=== PATIENT | female | born 1935 | race Caucasian/White ===

== ENCOUNTER → 2016-04-05 | Outpatient (CLI) | payer OTHER, MEDICARE ==
[~2016-04-05] MED LIST: ASPEC81 PO; ATOR-24 PO; CHOL20005 PO; CLOP1TAB15 PO; LISI-729 PO; LPR25 PO; MONT1TAB3 PO; NTRGSL/4 UT; PANT1TAB48 PO; PLMIN90 IN; SPIR25TA89 PO
[2016-04-05 08:35] LABS: BLOOD UREA NITROGEN 16 mg/dl (7-18); BUN/CREATININE RATIO 17.1 (10-20); CALCIUM 8.6 mg/dl (8.5-10.1); CARBON DIOXIDE 26 mmol/L (21-32); CHLORIDE 105 mmol/L (98-107); CHOLESTEROL 135 mg/dl (0-200); CREATININE 0.93 mg/dl (0.60-1.20); GLUCOSE 112 mg/dl (70-99); POTASSIUM 4.5 mmol/L (3.5-5.1); SODIUM 141 mmol/L (136-145)
[2016-04-05 08:38] LABS: CHOLESTEROL/HDL RATIO 2.1; HDL CHOLESTEROL 64 mg/dl; LDL CHOLESTEROL CALCULATED 52 mg/dl; TRIGLYCERIDES 95 mg/dl (0-150); VERY LOW DENSITY LIPOPROT CALC 19 mg/dl
[2016-04-05 10:28] LABS: ESTIMATED AVERAGE GLUCOSE 134 mg/dl; HA1C FLAG Normal (Normal)
--- NOTE | 2016-04-12 11:03 | CODING QUERY MEDICAL NECESSITY ---
SUPPORTING DIAGNOSIS NEEDED A supporting diagnosis is required for the test/procedure performed on this patient in order for us to be reimbursed by the patient's insurance. Please provide a supporting diagnosis for the following test/procedure listed below next to the test name along with your signature. *If there is no additional diagnosis for this patient that would support the following test/procedure please document that below next to the test/procedure. Test(s)/Procedure(s) that require a supporting diagnosis: * GLYCATED HEMOGLOBIN DIAGNOSIS: * DOS: 04/05/16 Provider Signature: Date: Thank you Keira [facility] Information Management Once completed, please kindly fax back to [phone] For questions please call [phone]
== END | disposition home or self-care (01) ==
LOC: C.LABFOXMH 08:16
PROVIDERS: ATTEND Internal Medicine
DX: E88.81 Metabolic syndrome and other insulin resistance (principal)

== ENCOUNTER → 2016-04-12 | Outpatient (CLI) | payer OTHER, MEDICARE ==
--- NOTE | 2016-04-12 13:09 | DIAGNOSTIC IMAGING REPORT ---
TWO VIEW CHEST CLINICAL HISTORY: Cough. FINDINGS: PA and lateral chest radiographs are compared to study dated 07/01/2015. The PA view is degraded by patient rotation. The heart is enlarged and there is atherosclerotic calcification with uncoiling of the thoracic aorta. The pulmonary vasculature is noncongested. Linear atelectasis is present in the right lower lung. There is patchy airspace consolidation seen in the left midlung. No pleural effusion or pneumothorax is identified. The skeletal structures are osteopenic. Degenerative change and hyperkyphosis are present in the thoracic spine. Surgical anchors are noted in the right humeral head. IMPRESSION: 1. Marked cardiomegaly without radiographic evidence of congestive failure. 2. There is patchy airspace consolidation the left midlung. This likely represents pneumonia. Radiographic follow-up to resolution is recommended. Electronically signed by: Sal Patterson M.D. 04/12/2016 1:07 PM Dictated Date/Time: 04/12/2016 1:05 PM
== END | disposition home or self-care (01) ==
LOC: C.RADBC 12:39
PROVIDERS: ATTEND Internal Medicine
DX: R05 Cough (principal); I51.7 Cardiomegaly

== ENCOUNTER → 2016-05-03 | Outpatient (CLI) | payer OTHER, MEDICARE ==
--- NOTE | 2016-05-03 12:14 | DIAGNOSTIC IMAGING REPORT ---
CHEST 2 VIEWS ROUTINE CLINICAL HISTORY: PNEUMONIA dyspnea COMPARISON STUDY: 04/12/2016 FINDINGS: Moderate stable cardiomegaly. Unchanging pulmonary atelectasis right base. Minimal infiltrative change left midlung. Upper lungs are considered clear. Postoperative changes right shoulder. IMPRESSION: Moderate stable cardiomegaly. Minimal infiltrate left midlung. Mild improvement from the prior study Electronically signed by: Sergo Castaneda M.D. 05/03/2016 12:12 PM Dictated Date/Time: 05/03/2016 12:10 PM
== END | disposition home or self-care (01) ==
LOC: C.RADBC 11:15
PROVIDERS: ATTEND Internal Medicine
DX: J18.9 Pneumonia, unspecified organism (principal); I51.7 Cardiomegaly

== ENCOUNTER → 2016-05-09 | Outpatient (CLI) | payer OTHER, MEDICARE ==
--- NOTE | 2016-05-09 11:49 | DIAGNOSTIC IMAGING REPORT ---
HISTORY: Dysphagia DYSPHASIA TECHNIQUE: Video fluoroscopic evaluation of swallowing was performed in the AP and lateral projections by the speech pathology staff. The patient is fed nectar-thick and thin liquid barium, a barium coated wafer, and barium pudding. FLUOROSCOPY TIME: 1.8 minutes. COMPARISON STUDY: None. FINDINGS: There is normal hyoid excursion and epiglottic deflection. No evidence for aspiration. Trace amount of penetration with thin liquids. Moderate esophageal dysmotility. IMPRESSION: 1. No aspiration identified. Trace penetration with thin liquids. Moderate esophageal dysmotility 2. Please see the speech pathologist report for detailed findings and recommendations. Electronically signed by: Sergo Castaneda M.D. 05/09/2016 11:48 AM Dictated Date/Time: 05/09/2016 11:47 AM
--- NOTE | 2016-05-10 13:52 | SWALLOWING EVALUATION ---
HISTORY: This 80 year-old woman was referred for a VFSS at [facility] in order to rule out aspiration. The patient reports that she coughs all day, and that it is not necessarily associated with food. But, she does have coughing after her meal is finished, and when she lies flat. The patient has a PMH significant for Diabetes type II, CO, MS, small hiatal hernia, mild GERD, and left lung pneumonia in April of this year. Her current diet is regular. PROCEDURE: The patient was seen in the Radiology Department of [facility] for the VFSS. Cursory examination of the oral cavity revealed natural dentition in fair condition. Movement of the articulators was wnl. The patient was seated upright on a stool and was viewed in both the Anterior-Posterior (A-P) and Lateral planes. Volitional phonation exercises completed in the A-P plane revealed bilateral vocal fold movement and vocal intensity to be wnl. In the lateral plane, the patient was given the following boluses: 1 tsp. thin liquid barium x 2, single swallow thin liquid barium self-presented from a cup, serial swallows of thin liquid barium self-presented via straw, 1 tsp. nectar-thick liquid barium, single swallow nectar-thick liquid barium self-presented from a cup, 1 tsp. barium pudding, and 1 club cracker with barium paste. The patient was then repositioned into the A-P plane and given the following boluses: 1 tsp. nectar-thick liquid barium and 1 tsp. barium pudding. RESULTS: Oral Stage: Lip closure was adequate. The patient was able to maintain a cohesive liquid bolus upon command during the liquid bolus hold task. Mastication and lingual motion for bolus transport we noted to be slow. There was retention lining the tongue after the swallow. The initiation of the pharyngeal swallow was delayed, and triggered when the bolus head reached the pyriforms. Pharyngeal Stage: Soft palate elevation was complete. Laryngeal elevation revealed partial superior movement of the thyroid cartilage and partial approximation of the arytenoids to the epiglottic base. Anterior hyoid excursion and epiglottic deflection were complete. Laryngeal vestibular closure was incomplete, with a narrow column of contrast being located in the vestibule at the height of the swallow. The pharyngeal stripping wave was present and complete. The opening to the pharyngoesophageal segment was also complete with distention and duration of the opening, with no obstruction of bolus flow. Tongue base retraction was reduced, with a narrow column of contrast being located between the tongue base and pharyngeal wall during the swallow. There was trace retention located along the tongue base and in the valleculae after the swallow. The patient presented with laryngeal penetration with thin liquids, but this did not result in aspiration. There was no evidence of aspiration during this study. Laryngeal penetration was attributed to delayed swallow reflex and reduced hyolaryngeal elevation. No other significant difficulty noted. Esophageal stage: There was evidence mid-distal esophageal retention. A liquid wash did assist, but was not effective to completely clearing the retention. SUMMARY/RECOMMENDATIONS: This patient presents mild oral-pharyngeal dysphagia. She also presents with esophageal dysfunction. The following is recommended: 1. Regular "slippery" diet, thin liquids. 2. Aspiration and GERD precautions, straws OK. Fully upright for all p.o. intake and for 30-60 minutes after meals. HOB elevated to at least 30 degrees at all times, even while asleep. 3. Safe swallow strategies: Small frequent meals. Alternate solids and liquids, rest breaks as needed. 4. PCP follow up, and consider consultation with a GI specialist as appropriate. Would benefit from further testing (i.e. Barium Swallow as needed) and/or management of medications to assist with esophageal dysphagia. A summary of the results and recommendations was discussed with the patient immediately following the study with verbal understanding. The patient was also provided with both verbal and written education regarding "slippery" diet to assist with improved comfort while eating, with verbal understanding. Thank you for referral of this patient. Please contact me at if any additional information is needed.
== END | disposition home or self-care (01) ==
LOC: C.RAD 10:47
PROVIDERS: ATTEND Internal Medicine
DX: R13.19 Other dysphagia (principal); K22.4 Dyskinesia of esophagus; G35 Multiple sclerosis; E11.9 Type 2 diabetes mellitus without complications; I25.2 Old myocardial infarction; K21.9 Gastro-esophageal reflux disease without esophagitis

== ENCOUNTER → 2016-05-12 | Outpatient (CLI) | payer OTHER, MEDICARE ==
--- NOTE | 2016-05-12 09:58 | DIAGNOSTIC IMAGING REPORT ---
CT SCAN OF THE CHEST WITHOUT IV CONTRAST CLINICAL HISTORY: Cough. COMPARISON STUDY: Chest x-ray dated 05/03/2016. TECHNIQUE: CT scan of the thorax was performed from the thoracic inlet to the upper abdomen. Images are reviewed in the axial, sagittal, and coronal planes. IV contrast was not administered for this examination. CT DOSE: 273.79 mGy.cm FINDINGS: Thyroid: Imaged portions of the thyroid gland are normal in size and attenuation. Bilateral low-attenuation nodules measure up to 2.0 cm. Thoracic aorta: There is atherosclerotic calcification of the thoracic aorta, which is normal in caliber and demonstrates standard 3-vessel arch anatomy. Heart: The heart is mildly enlarged and there is trace pericardial effusion. The coronary arteries are densely calcified. A stent is suggested in the left coronary artery. Lungs and pleural spaces: Evaluation of the lung parenchyma is degraded by respiratory motion artifact. There is scarring/fibrosis identified in the lingula. Mild scarring is present in the right middle lobe. There are extensive tree-in-bud opacities seen throughout the left lower lung. Milder tree-in-bud opacities are present in the right upper and left upper lobes. No pleural effusion is identified. The trachea and central airways are clear. Scattered calcified granulomas are observed. Mediastinum: There are scattered subcentimeter mediastinal lymph nodes. These are not pathologically enlarged by size criteria. Flavia: Not well assessed without IV contrast. Axillae: There is no axillary lymphadenopathy. Upper abdomen: A tiny hiatal hernia is noted. The visualized kidneys demonstrate cortical atrophy. A 1.0 cm exophytic cyst arises from the left kidney. Skeletal structures: The skeletal structures are heterogeneously osteopenic. Degenerative change and hyperkyphosis are noted in the thoracic spine. No lytic or blastic bony lesions are seen. There is a moderate compression deformity of T11. A mild compression deformity is seen involving T6. Surgical anchors are present in the right humeral head. IMPRESSION: 1. There are extensive changes of tree-in-bud nodularity throughout the left lower lobe. Milder similar-appearing changes are present in the upper lobes. Additionally, there is significant atelectasis/scarring in the right middle lobe and lingula. The constellation of findings suggests a chronic infectious/inflammatory process such as FIDE. Follow-up with pulmonology is recommended. 2. Cardiomegaly. 3. Additional changes as above. Electronically signed by: Sal Patterson M.D. 05/12/2016 9:56 AM Dictated Date/Time: 05/12/2016 9:50 AM
--- NOTE | 2016-05-13 07:21 | PULMONARY FUNCTION TEST ---
INTERPRETATION: The spirometry reveals mild obstruction with no change in the airflow with the use of albuterol. Lung volumes suggest a mild restrictive disorder and the diffusion capacity when corrected for alveolar volume is increased.
== END | disposition home or self-care (01) ==
LOC: C.CTS 09:28
PROVIDERS: ATTEND Internal Medicine
DX: R05 Cough (principal); I51.7 Cardiomegaly

== ENCOUNTER → 2016-05-13 | Outpatient (CLI) | payer OTHER, MEDICARE ==
--- NOTE | 2016-06-03 08:35 | CODING QUERY NO DIAGNOSIS ---
TREATMENT RENDERED WITHOUT A DIAGNOSIS To promote full compliance with coding requirements relating to patient care, physician participation is requested in all cases of program clinician uncertainty. Please assist us with providing a diagnosis/symptom for the test(s) below: A diagnosis/symptom was not documented on your Order. A valid diagnosis/symptom is required to bill all insurances. Please remember that we are unable to code a diagnosis of rule out, probable, possible, questionable, or suspected. Tests that require a diagnosis: * AFB CULTURE AND SMEAR DIAGNOSIS: Provider Signature: Date: Thank you Maya Melrose [facility] Information Management Once completed, please kindly fax back to [phone] For questions please call [phone]
== END | disposition home or self-care (01) ==
LOC: C.LABFOXMH 11:02
PROVIDERS: ATTEND Internal Medicine
DX: R05 Cough (principal)

== ENCOUNTER → 2016-05-18 | Outpatient (CLI) | payer OTHER, MEDICARE | END | disposition home or self-care (01) | LOC: C.LABFOXMH 10:23 | PROVIDERS: ATTEND Internal Medicine | DX: T17.920A Food in respiratory tract, part unspecified causing asphyxiation, initial encounter (principal); X58.XXXA Exposure to other specified factors, initial encounter ==

== ENCOUNTER → 2016-05-30 | Outpatient (CLI) | payer OTHER, MEDICARE | END | disposition home or self-care (01) | LOC: C.LABSPEC 15:11 | PROVIDERS: ATTEND Nurse Practitioner | DX: R05 Cough (principal) ==

== ENCOUNTER → 2016-07-20 | Outpatient (CLI) | payer OTHER, MEDICARE ==
[2016-07-20 08:35] LABS: HEMATOCRIT 39.8 % (37-47); MEAN CELL VOLUME 90.2 fL (80-100); MEAN CORPUSCULAR HEMOGLOBIN 29.7 pg (25-34); MEAN CORPUSCULAR HGB CONC 32.9 g/dl (32-36); MEAN PLATELET VOLUME 9.8 fL (7.4-10.4); PLATELET COUNT 208 K/uL (130-400); RED BLOOD COUNT 4.41 M/uL (4.2-5.4); WHITE BLOOD COUNT 7.02 K/uL (4.8-10.8)
[2016-07-20 08:45] LABS: ALT/SGPT 21 U/L (12-78); BLOOD UREA NITROGEN 23 mg/dl (7-18); BUN/CREATININE RATIO 23.2 (10-20); CARBON DIOXIDE 27 mmol/L (21-32); CHLORIDE 105 mmol/L (98-107); GLUCOSE 108 mg/dl (70-99); POTASSIUM 4.5 mmol/L (3.5-5.1); SODIUM 140 mmol/L (136-145)
[2016-07-20 08:55] LABS: ALB/GLOB RATIO 1.1 (0.9-2); ALKALINE PHOSPHATASE 103 U/L (45-117); AST/SGOT 14 U/L (15-37)
--- NOTE | 2016-07-27 07:24 | CODING QUERY MEDICAL NECESSITY ---
SUPPORTING DIAGNOSIS NEEDED Dr. Denis, A supporting diagnosis is required for the test/procedure performed on this patient in order for us to be reimbursed by the patient's insurance. Please provide a supporting diagnosis for the following test/procedure listed below next to the test name along with your signature. *If there is no additional diagnosis for this patient that would support the following test/procedure please document that below next to the test/procedure. Test(s)/Procedure(s) that require a supporting diagnosis: * ([id number]) B12 VITAMIN LEVEL DIAGNOSIS: DATE OF SERVICE: 07/20/16 Provider Signature: Date: Thank you Evangelist Perla [facility] Information Management Once completed, please kindly fax back to [phone] For questions please call [phone]
== END ==
LOC: C.LABFOXMH 08:05
PROVIDERS: ATTEND Internal Medicine
DX: R53.83 Other fatigue (principal)

== ENCOUNTER → 2016-08-29 | Outpatient (CLI) | payer OTHER, MEDICARE ==
--- NOTE | 2016-08-29 12:41 | DIAGNOSTIC IMAGING REPORT ---
CT SCAN OF THE CHEST WITHOUT IV CONTRAST CLINICAL HISTORY: Follow-up abnormal chest CT. COMPARISON STUDY: Chest CT dated 05/12/2016. TECHNIQUE: CT scan of the thorax was performed from the thoracic inlet to the upper abdomen. Images are reviewed in the axial, sagittal, and coronal planes. IV contrast was not administered for this examination as per the referring clinician. CT DOSE: 296.93 mGycm FINDINGS: Thyroid: Imaged portions of the thyroid gland are normal in size and attenuation. Bilateral low-attenuation nodules measure up to 2.0 cm. Thoracic aorta: There is atherosclerotic calcification of the thoracic aorta, which is normal in caliber and demonstrates standard 3-vessel arch anatomy. Heart: The heart is mildly enlarged and there is a small pericardial effusion. The coronary arteries are densely calcified. A stent is suggested in the left coronary artery. The pulmonary trunk is normal in caliber. Lungs and pleural spaces: Evaluation of the lung parenchyma is degraded by respiratory motion artifact. There is scarring/fibrosis identified in the right middle lobe and lingula. Again seen are numerous foci of tree-in-bud opacification throughout the left lower lung. This has modestly cleared from 05/12/2016. Milder foci of tree-in-bud opacification are present in the right remaining lobes. No pleural effusion is identified. The trachea and central airways are clear. Scattered calcified granulomas are observed. Mediastinum: There are scattered subcentimeter mediastinal lymph nodes. These are not pathologically enlarged by size criteria. Flavia: Not well assessed without IV contrast. Axillae: There is no axillary lymphadenopathy. Upper abdomen: A tiny hiatal hernia is noted. The visualized kidneys demonstrate cortical atrophy. A subcentimeter exophytic cyst arises from the right upper pole. Skeletal structures: The skeletal structures are heterogeneously osteopenic. Degenerative change and hyperkyphosis are noted in the thoracic spine. No lytic or blastic bony lesions are seen. A hemangioma is again noted in T12. There is a moderate compression deformity of T11. Mild compression deformities are noted in T2 and T6. Surgical anchors are present in the right humeral head. IMPRESSION: 1. Again seen are extensive changes of tree-in-bud nodularity throughout the left lower lobe, modestly cleared from 05/12/2016. Mild tree-in-bud opacities are seen throughout the remaining lung parenchyma. Additionally, there is atelectasis/scarring in the right middle lobe and lingula. The constellation of findings remains most typical for a chronic infectious/inflammatory process such as FIDE. Clinical correlation will be required. 2. Cardiomegaly and small pericardial effusion. 3. Additional findings as above. Electronically signed by: Sal Patterson M.D. 08/29/2016 12:39 PM Dictated Date/Time: 08/29/2016 12:33 PM
== END | disposition home or self-care (01) ==
LOC: C.CTS 11:20
PROVIDERS: ATTEND Internal Medicine Pulmonary Disease
DX: R93.8 Abnormal findings on diagnostic imaging of other specified body structures (principal); I51.7 Cardiomegaly

== ENCOUNTER → 2016-09-08 | Outpatient (CLI) | payer OTHER, MEDICARE ==
[2016-09-08 09:11] LABS: BASO % 0.2 %; BASO ABS # 0.01 K/uL (0-0.2); COMPLETE YES; EOS % 2.9 %; HEMATOCRIT 38.3 % (37-47); IG% 0.2 %; LYMPH % 21.2 %; LYMPH ABS # 1.11 K/uL (1.2-3.4); MEAN CELL VOLUME 90.3 fL (80-100); MEAN CORPUSCULAR HEMOGLOBIN 29.5 pg (25-34); MEAN CORPUSCULAR HGB CONC 32.6 g/dl (32-36); MONO % 10.7 %; NEUT % 64.8 %; PLATELET COUNT 216 K/uL (130-400); RED BLOOD COUNT 4.24 M/uL (4.2-5.4); WHITE BLOOD COUNT 5.23 K/uL (4.8-10.8)
[2016-09-08 09:22] LABS: ALT/SGPT 21 U/L (12-78); BLOOD UREA NITROGEN 18 mg/dl (7-18); CALCIUM 9.1 mg/dl (8.5-10.1); CARBON DIOXIDE 27 mmol/L (21-32); CHLORIDE 105 mmol/L (98-107); CREATININE 0.97 mg/dl (0.60-1.20); GLUCOSE 101 mg/dl (70-99); POTASSIUM 4.6 mmol/L (3.5-5.1); SODIUM 139 mmol/L (136-145)
[2016-09-08 09:24] LABS: ALB/GLOB RATIO 0.9 (0.9-2); ALKALINE PHOSPHATASE 130 U/L (45-117); AST/SGOT 18 U/L (15-37)
[2016-09-08 09:28] LABS: PARTIAL THROMBOPLASTIN RATIO 1.2; PROTHROMBIN TIME (PATIENT) 10.7 SECONDS (9.0-12.0)
== END | disposition home or self-care (01) ==
LOC: C.LABFOXMH 08:43
PROVIDERS: ATTEND Internal Medicine Pulmonary Disease
DX: R93.8 Abnormal findings on diagnostic imaging of other specified body structures (principal); J45.909 Unspecified asthma, uncomplicated; R06.02 Shortness of breath

== ENCOUNTER → 2016-09-20 | Day surgery (SDC) | payer OTHER, MEDICARE ==
[2016-09-20] VITALS (13 sets, daily range): BP systolic 113–162; BP diastolic 53–89; PULSE 62–85; TEMP 36.7–36.9; O2SAT 96–99; Ht 165.1 cm; Wt 72.8 kg
[~2016-09-20] VITALS: Ht 165.1 cm; Wt 72.8 kg
[~2016-09-20] MED LIST changes: +FENTANYL CITRATE 100 MCG 2 ML CARP IV ONE; +FENTANYL CITRATE INJ 50 MCG/1 ML 2 ML VIAL IV SCH; +LEVALBUTEROL 1.25MG/3ML NEB INH ONE; +MIDAZOLAM HCL 5 MG/ML 1 ML VIAL IV SCH; +MIDAZOLAM HCL 5 MG/ML 2ML VIAL IV ONE; +NURSING VERBAL MED ORDER ONE
--- NOTE | 2016-09-20 08:50 | Procedure Note ---
Pre-Mod Sedation Assessment General Date of Moderate Sedation: Sep 20, 2016. Vital Signs: Vital Signs Past 12 Hours Date Time Temp Pulse Resp B/P (MAP) Pulse Ox O2 Delivery O2 Flow Rate FiO2 09/20/16 08:31 36.7 64 16 151/58 96 Room Air 09/20/16 08:16 36.7 64 16 151/58 (89) 96 Room Air Pre-Sedation Airway Assessment Oral Cavity: WNL Short Thick Neck: No Hx of Sleep Apnea: Yes Smoking Status: Former Smoker Mallampati Classification: Class II ASA Classification: Class II Procedure Planning Contraindications-for Mod Sed: None Yes Notes The planned sedation has been discussed with the patient and consent obtained. I have identified the patient, determined the appropriateness of sedation and have assessed the patient immediately prior to the procedure. All medicine(s) and interventions are by my order.
--- NOTE | 2016-09-20 08:50 | History & Physical Bridge Note ---
H&P Re-Evaluation Bridge Note: I have examined the patient, reviewed the History & Physical and in the interval since the performance of the History & Physical I have noted the following changes of clinical significance: No changes noted
--- NOTE | 2016-09-20 10:57 | Discharge Instructions ---
Discharge Instructions Date of Service Sep 20, 2016. Admission Reason for Admission: Pulmonary Nodule, Abd Imaging Discharge Discharge Diagnosis / Problem: Pulmonary Nodule, Abnormal imaging Discharge Goals Goal(s): Diagnostic testing Activity Recommendations Activity Limitations: resume your previous activity . Instructions / Follow-Up Instructions / Follow-Up ACTIVITY RECOMMENDATIONS: * Rest today, resume normal activity tomorrow. * Do not drive today. SPECIAL CARE INSTRUCTIONS: * Call your physician if you experience any chest or shoulder pain, fever, coughing, spitting up blood (more than 2 teaspoons) or excessive shortness of breath. * Remove dressing from IV site (where needle was placed into the vein) after 2 hours. Apply a warm, moist compress to site if irritation occurs. Call physician if site becomes red or painful to touch. * You may eat 4 hours after the completion of your procedure * Resume all usual medications as previously directed FOLLOW UP VISIT: * Keep any scheduled doctor appointments. Current Hospital Diet Patient's current hospital diet: Discharge Diet Recommended Diet: Regular Diet Procedures Procedures Performed: Bronchoscopy Pending Studies Studies pending at discharge: yes List of pending studies: Cultures. Biopsy if done. Medical Emergencies . Who to Call and When: Medical Emergencies: If at any time you feel your situation is an emergency, please call 911 immediately. . Non-Emergent Contact Non-Emergency issues call your: Primary Care Provider Call Non-Emergent contact if: you have a fever, temperature is above 101, your pain is worsening, your pain is unusual for you, your pain is concerning you, you have any medication questions . . "Provider Documentation" section prepared by Valentino Geller PA-C. . VTE Core Measure Inpt VTE Proph given/why not?: Treatment not indicated (Same day procedure.)
--- NOTE | 2016-09-20 11:02 | Procedure Note ---
Procedure Note Date of Service Sep 20, 2016. Procedure Note Procedure note Fiberoptic bronchoscopy with bronchoalveolar lavage with or without biopsy Indications diffuse ground-glass opacities with chronic cough refractory to outpatient therapy Preoperative medications none Medications during procedure 4 mg IV Versed and 50 mcg IV fentanyl 20 cc 2% xylocaine spray above and below the cords 4% viscous xylocaine intranasally Procedure Fiberoptic bronchoscope was inserted into the right nares with minimal difficulty and passed to the level of the true vocal cords. The cords appeared to approximate normally with phonation without evidence for lesions or paralysis. Scope was passed through the cords into the trachea and right and left tracheobronchial tree. The chris was sharp. 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 This was not felt to be clinically significant. The right mainstem bronchus was entered and no endobronchial lesions was seen. The right upper lobe with the apical posterior and anterior segments with were identified and found to be free of endobronchial lesions with mucopurulent secretion lavage from each segmental bronchus still clear. Bronchus intermedius and the right middle lobe with the medial and lateral segments and all basilar segments to the right lower lobe were found to be free of endobronchial lesions with a ibns-ul-ngdyychb degree of global inflammatory mucosal change. Mucous pitting with bronchial crypts and clefts were seen. The scope was withdrawn to the chris and the left mainstem bronchus was entered with no endobronchial lesions seen. Left upper lobe with the apical- posterior and anterior segments and lingula subdivision with the superior and inferior segments were identified a moderate amount of mucopurulent secretion was lavaged from each lobar and segmental bronchus. The left lower lobe bronchus with its respective basal segments were free of endobronchial lesions. A moderate degree of global inflammatory mucosal changes seen throughout the left tracheobronchial tree. No brushes and biopsies were attempted. Fluoroscopy was not utilized. Procedure was terminated after washings were taken from the left upper lobe and lingula and sent for appropriate studies. Patient tolerated procedure well and a post bronchoscopy nebulizer treatment with Xopenex 1.25 mg was administered via aerosol and the patient was then transferred to medical treatment needed in the daytime disabled no signs of respiratory compromise. We will await microbiological and cytologic examination of the bronchial washings. End dictation
[2016-10-15 12:57] LABS: HERPES SIMPLEX CULT SOURCE RESPIRATORY-LUL WASH; HERPES SIMPLEX VIRUS CULT NOT ISOLATED (NOT ISOLATED)
== END | disposition home or self-care (01) ==
LOC: C.ACU 07:30
PROVIDERS: ATTEND Internal Medicine Pulmonary Disease
DX: J39.8 Other specified diseases of upper respiratory tract (principal); R91.1 Solitary pulmonary nodule; I25.10 Atherosclerotic heart disease of native coronary artery without angina pectoris; Z95.5 Presence of coronary angioplasty implant and graft; K22.4 Dyskinesia of esophagus; I10 Essential (primary) hypertension; I48.0 Paroxysmal atrial fibrillation; E05.20 Thyrotoxicosis with toxic multinodular goiter without thyrotoxic crisis or storm; G35 Multiple sclerosis; J45.909 Unspecified asthma, uncomplicated; E78.5 Hyperlipidemia, unspecified; I25.5 Ischemic cardiomyopathy; K21.9 Gastro-esophageal reflux disease without esophagitis; I25.2 Old myocardial infarction; M81.0 Age-related osteoporosis without current pathological fracture; G62.9 Polyneuropathy, unspecified; Z79.899 Other long term (current) drug therapy

== ENCOUNTER → 2016-09-29 | Outpatient (CLI) | payer OTHER, MEDICARE ==
[~2016-09-29] MED LIST changes: -ASPEC81 PO; -FENTANYL CITRATE 100 MCG 2 ML CARP IV ONE; -FENTANYL CITRATE INJ 50 MCG/1 ML 2 ML VIAL IV SCH; -LEVALBUTEROL 1.25MG/3ML NEB INH ONE; -MIDAZOLAM HCL 5 MG/ML 1 ML VIAL IV SCH; -MIDAZOLAM HCL 5 MG/ML 2ML VIAL IV ONE; -NURSING VERBAL MED ORDER ONE
[2016-10-03 13:51] LABS: ASPERGILLUS FLAVUS Negative (Negative); ASPERGILLUS FUMIGATUS Negative (Negative); ASPERGILLUS NIGER Negative (Negative); IMMUNOGLOBULIN E TC 24620E 28 KU/L (<115)
== END | disposition home or self-care (01) ==
LOC: C.LABFOXMH 08:34
PROVIDERS: ATTEND Internal Medicine Pulmonary Disease
DX: R06.02 Shortness of breath (principal)

== ENCOUNTER → 2016-10-12 | Outpatient (CLI) | payer OTHER, MEDICARE ==
[2016-10-15 02:33] LABS: QUANTIF TB AG-NIL 0.16 IU/ML; QUANTIFERON NIL 0.03 IU/ML
== END | disposition home or self-care (01) ==
LOC: C.LAB 11:46
PROVIDERS: ATTEND Internal Medicine Pulmonary Disease
DX: R06.02 Shortness of breath (principal); B44.81 Allergic bronchopulmonary aspergillosis; R05 Cough

== ENCOUNTER → 2017-01-23 | Outpatient (CLI) | payer OTHER, MEDICARE ==
--- NOTE | 2017-01-24 14:29 | MAMMOGRAPHY REPORT ---
BILATERAL DIGITAL SCREENING MAMMOGRAM TOMOSYNTHESIS WITH CAD: 01/23/2017 CLINICAL HISTORY: Routine screening. Patient has no complaints. TECHNIQUE: Breast tomosynthesis in addition to standard 2D mammography was performed. Current study was also evaluated with a Computer Aided Detection (CAD) system. COMPARISON: Comparison is made to exams dated: 02/12/2015 mammogram, 11/19/2012 mammogram, 08/26/2011 mammogram, 09/11/2009 mammogram - [facility], 10/10/2007, and 08/03/2006. BREAST COMPOSITION: There are scattered areas of fibroglandular density in both breasts. FINDINGS: There is a stable intramammary lymph node in the left upper outer quadrant. No new suspici ous mass, architectural distortion or cluster of microcalcifications is seen. IMPRESSION: ACR BI-RADS CATEGORY 1: NEGATIVE There is no mammographic evidence of malignancy. A 1 year screening mammogram is recommended. The pa tient will receive written notification of the results. Approximately 10% of breast cancers are not detected with mammography. A negative mammographic report should not delay biopsy if a clinically suggestive mass is present. Erin Colorado M.D. ay/:01/23/2017 15:06:26 Machine Dyer: Mabel FIGUEROA(Margaret)([place]), [facility] letter sent: Normal 1/2 BI-RADS Code: ACR BI-RADS Category 1: Negative
== END | disposition home or self-care (01) ==
LOC: C.MAMM 14:12
PROVIDERS: ATTEND Internal Medicine
DX: Z12.31 Encounter for screening mammogram for malignant neoplasm of breast (principal)

== ENCOUNTER → 2017-07-18 | Outpatient (CLI) | payer OTHER, MEDICARE ==
[~2017-07-18] MED LIST changes: +PANT1TAB3 PO; -PANT1TAB48 PO
[2017-07-18 09:25] LABS: HEMATOCRIT 39.1 % (37-47); HEMOGLOBIN 13.1 g/dL (12.0-16.0); MEAN CELL VOLUME 90.7 fL (80-100); MEAN CORPUSCULAR HEMOGLOBIN 30.4 pg (25-34); MEAN CORPUSCULAR HGB CONC 33.5 g/dl (32-36); MEAN PLATELET VOLUME 9.9 fL (7.4-10.4); PLATELET COUNT 196 K/uL (130-400); RED CELL DISTRIBUTION WIDTH CV 13.6 % (11.5-14.5); RED CELL DISTRIBUTION WIDTH SD 45.1 fL (36.4-46.3); WHITE BLOOD COUNT 5.52 K/uL (4.8-10.8)
[2017-07-18 10:35] LABS: BLOOD UREA NITROGEN 16 mg/dl (7-18); CALCIUM 9.1 mg/dl (8.5-10.1); CARBON DIOXIDE 30 mmol/L (21-32); CREATININE 1.06 mg/dl (0.60-1.20); GLUCOSE 100 mg/dl (70-99); POTASSIUM 4.3 mmol/L (3.5-5.1); SODIUM 140 mmol/L (136-145)
== END ==
LOC: C.LABFOXMH 08:29
PROVIDERS: ATTEND Internal Medicine
DX: R06.02 Shortness of breath (principal)

== ENCOUNTER → 2017-07-24 | Outpatient (CLI) | payer OTHER, MEDICARE ==
[2017-07-24 09:13] LABS: BLOOD UREA NITROGEN 17 mg/dl (7-18); CARBON DIOXIDE 30 mmol/L (21-32); CREATININE 1.06 mg/dl (0.60-1.20); GLUCOSE 103 mg/dl (70-99); POTASSIUM 4.4 mmol/L (3.5-5.1); SODIUM 139 mmol/L (136-145)
== END | disposition home or self-care (01) ==
LOC: C.LABFOXMH 08:51
PROVIDERS: ATTEND Internal Medicine
DX: I10 Essential (primary) hypertension (principal)

== ENCOUNTER 2022-10-15 07:47 | Inpatient (IN) ==
--- NOTE | 2022-10-15 08:07 | Emergency Department Note ---
Impression & Plan Hypoxia, Acute respiratory distress ED Provider Note Name: FRAN OCAMPO Age: 86 Sex: F Arrives Via: Ambulance Informant: Patient, EMS, Nursing ED Provider: Ochoa Colmenares MD Chief Complaint: Breathing difficulty Impression: As per impression above Medical Decision Makin-year-old female with extensive past medical history arrives from local nursing facility for worsening breathing difficulty. She was hypoxic in the 80s on room air. She has some crackles throughout all lung ni worse on the right than left. Chest x-ray consistent with some pulmonary edema. Labs however show mild worsening renal function and her exam is a bit on the dry side. Her BNP is elevated but is actually bit lower than where its been in the past. No clear infectious etiologies I do not feel she is septic at this time. Procalcitonin and white count are unremarkable thus no clear indication for blood cultures or antibiotics at this time. Given the hypoxia will clearly need to come in but we will hold off on further laboratory testing or medical management until medicine team further evaluates. Medical team on board with this plan and will take over care. Given her multitude of reasons for shortness of breath I suspect unlikely PE or dissection and I not feel that CT angio is necessary at this time Prior Medical Record and Triage/Nursing Notes reviewed by Me External chart reviewed by me including previous hospitalization records and discharge summaries Differentials:Pneumonia, pneumothorax, COPD, CHF, infections, cardiac ischemia, pulmonary embolism, musculoskeletal, gastrointestinal, as well as other pathologies. Vital Signs: reviewed and remarkable for hypoxia Interventions: Nasal cannula O2 Labs:Reviewed and remarkable for moderately elevated BNP but also elevated Cr compared to previous Imagin view chest x-ray as per my interpretation reveals bilateral congestive findings mildly worsened from previous, there is a fair amount of rotation of patient though. EKG:As per my interpretation. Indication shortness of breath. Sinus at 61 bpm QTc of 458. There is a first-degree AV block. No ectopy nor ischemia appreciated. Left axis deviation noted. When compared to EKG of January 22, 2018 relatively similar Cardiac/Tele Monitoring: Cardiac Monitoring: An Order was placed for continuous cardiac monitoring. The monitor shows a rate of 60 with a normal sinus rhythm. Consults: [place] Hospitalist Plan: Disposition:Hospitalization. Condition: Fair History of Present Illness:86-year-old female arrives for evaluation of shortness of breath. Patient lives at [facility] where she was found to have worsening hypoxia this morning. They noted increased work of breathing. Patient sent to the ER for further evaluation. Patient denies any symptoms. No medications prior to arrival. No reported fevers. Patient denies any chest pain, shortness of breath, back pain, abdominal pain, headache, urinary symptoms, swelling or other concerning signs or symptoms though I will note patient is a bit confused/dementia and full review of systems is not completely clear. Past History:See Below Home Medications:See Below Allergies:See Below Vitals:Blood Pressure: 126/80, Pulse 64, RR 22, T 36.8C, O2 85% on RA Physical Exam: GENERAL: Patient is elderly appearing and in minimal distress. Confused/dementia RESPIRATORY: Moderate tachypnea with mild dyspnea. Crackles throughout the right lungs as well as some of the bases of the left lung. Increased work of breathing with some belly breathing noted at time CARDIOVASCULAR: Regular rate and rhythm.No murmurs, rubs, gallops appreciated. GASTROINTESTINAL: Abdomen soft, non-tender, no peritonitis EXTREMITIES: Normal motion all extremities, no cyanosis, mild bilateral lower leg edema. NEUROLOGIC: Patient mildly somnolent answers questions stating she is fine no focal deficits appreciated SKIN: No rash, no jaundice, no diaphoresis. PSYCH: Appropriate GCS: 14 ED Course: Times/Reassessments: Patient does appear a bit better on nasal cannula O2. She is not in any significant distress or extremis. Agreeable to hospitalization Ochoa Colmenares MD Past Med/Surg History Medical History Asthma Bronchiectasis Coronary artery disease Dyslipidemia Esophageal dysmotility GERD (gastroesophageal reflux disease) Hypertension Ischemic cardiomyopathy Moderate persistent asthma Multiple sclerosis Myocardial infarct, old Osteoporosis Paroxysmal atrial fibrillation Peripheral neuropathy Toxic multinodul goiter Surgical History History of arthroscopic surgery of shoulder History of cardiac catheterization History of heart artery stent History of tubal ligation Family History Father Myocardial infarction at age 46 from an [place] Mother , age 77 from [place] Myocardial infarction Social History Smoking Status: Former smoker Second Hand Exposure: No; Do You Dip or Chew Tobacco: No; Hx Alcohol Use: No Hx Substance Use: No Preferred Language: Zambian Communication Ability: Effective Stencil Cutter Machine Required: No Beliefs That Will Affect Care: None marital status: Current Living Situation: Personal Care Facility Feels Safe at Home: Yes Assistive Devices: Denture - Lower, Glasses, Hearing Aid - Left and Hearing Aid - Right Allergies Allergies Allergy/AdvReac Type Severity Reaction Status Date / Time alendronate sodium Allergy Unknown unknown Verified 10/18/21 11:31 aspirin Allergy Unknown Unknown Verified 10/18/21 11:31 metformin Allergy Unknown Verified 10/18/21 11:31 mirtazapine Allergy Unknown Unknown Verified 10/18/21 11:31 sertraline [From Zoloft] Allergy Unknown Unknown Verified 10/18/21 11:31 Home Meds Home Medications Medication Instructions Recorded Confirmed cholecalciferol (vitamin D3) 50 2,000 unit PO DAILY 01/08/18 10/15/22 mcg (2,000 unit) capsule clopidogrel 75 mg tablet (Plavix) 75 mg PO DAILY 01/08/18 10/15/22 montelukast 10 mg tablet 10 mg PO DAILY 01/08/18 10/15/22 (Singulair) pantoprazole 40 mg tablet,delayed 40 mg PO QAM 01/08/18 10/15/22 release (Protonix) acetaminophen 325 mg tablet 650 mg PO Q4H PRN pain/fever 01/22/18 10/15/22 (Tylenol) albuterol sulfate 90 mcg/actuation 2 puff inhalation Q6H PRN Cough 01/22/18 10/15/22 breath activated powder inhaler bisacodyl 10 mg rectal suppository 10 mg SD Q72H PRN Constipation 01/22/18 10/15/22 (Dulcolax (bisacodyl)) coQ10 (ubiquinol) 200 mg capsule 200 mg PO DAILY 01/22/18 10/15/22 fluticasone furoate 100 1 inh inhalation QAM 01/22/18 10/15/22 mcg-vilanterol 25 mcg/dose inhalation powder (Breo Ellipta) losartan 25 mg tablet (Cozaar) 25 mg PO DAILY 01/22/18 10/15/22 magnesium hydroxide 400 mg/5 mL 30 ml PO Q OTHER DAY PRN 01/22/18 10/15/22 oral suspension (Milk of Magnesia) Constipation metoprolol succinate 50 mg 75 mg PO DAILY 01/22/18 10/15/22 tablet,extended release 24 hr nystatin 100,000 unit/gram topical See Rx Instructions .Route 01/22/18 10/15/22 cream .COMPLEX PRN Rash pravastatin 40 mg tablet 40 mg PO DAILY 01/22/18 10/15/22 bupropion HCl 150 mg tablet,12 hr 150 mg PO QAM 09/24/18 10/15/22 sustained-release (Wellbutrin SR) nitroglycerin 0.4 mg sublingual 0.4 mg sublingual Q5M PRN Chest 10/17/18 10/15/22 tablet (Nitrostat) Pain furosemide 20 mg tablet 20 mg PO DAILY 08/16/19 10/15/22 melatonin 5 mg tablet 5 mg PO HS 08/16/19 10/15/22 sennosides 8.6 mg tablet (Senokot) 8.6 mg PO BID 08/16/19 10/15/22 albuterol sulfate 2.5 mg/3 mL 2.5 mg inhalation Q4H PRN Wheezing 09/16/19 10/15/22 (0.083 %) solution for nebulization ondansetron HCl 4 mg tablet 4 mg PO TID PRN Nausea 09/16/19 10/15/22 (Zofran) polyethylene glycol 3350 17 17 gm PO 3XWK 09/16/19 10/15/22 gram/dose oral powder (Miralax) gabapentin 100 mg capsule 100 mg PO TID 09/17/21 10/15/22 trazodone 50 mg tablet 25 mg PO HS 09/17/21 10/15/22 venlafaxine 37.5 mg 37.5 mg PO QAM 09/17/21 10/15/22 capsule,extended release 24 hr (Effexor XR) acetaminophen 325 mg tablet 650 mg PO HS pain 10/15/22 10/15/22 calcium carbonate 500 mg calcium 500 mg PO QID PRN Heartburn 10/15/22 10/15/22 (1,250 mg) chewable tablet cyanocobalamin (vitamin B-12) 1,000 mcg PO DAILY 10/15/22 10/15/22 1,000 mcg tablet ferrous sulfate 325 mg (65 mg 325 mg PO DAILY 10/15/22 10/15/22 iron) tablet ipratropium 0.5 mg-albuterol 3 mg 3 ml inhalation Q4H PRN Wheezing 10/15/22 10/15/22 (2.5 mg base)/3 mL nebulization soln menthol 4 % topical gel (Biofreeze 1 applic topical Q4H PRN Pain 10/15/22 10/15/22 (menthol)) potassium chloride 10 mEq 10 meq PO DAILY 10/15/22 10/15/22 tablet,extended release(part/cryst) Results & Data (ED) Vital Signs Vital Signs - 24 hr 10/15/22 08:01 10/15/22 08:01 10/15/22 08:15 Temperature 36.9 C Temperature Source Oral Pulse Rate 62 Pulse Rate from SpO2 Sensor Respiratory Rate 20 Respiratory Effort / Characteristics Non-Labored Spontaneous Accessory Muscle Use Non-Labored Spontaneous Accessory Muscle Use Respiratory Depth Normal Normal Respiratory Pattern Regular Regular Blood Pressure 133/79 Blood Pressure Mean 97 Blood Pressure Position Semi-fowlers Pulse Oximetry 99 87 L Oxygen Delivery Method Room Air Room Air Room Air Oxygen Flow Rate Sepsis Recent Fever Within 48 Hours No Sepsis New/Unexplained Change in Mental Status No Sepsis Action Taken by Nursing No Action Required Oxygen Flow Rate - Titration 2 Pulse Oximetry Post Tiitration 100 10/15/22 08:01 10/15/22 08:00 10/15/22 08:30 Temperature Temperature Source Pulse Rate 64 64 61 Pulse Rate from SpO2 Sensor 64 61 Respiratory Rate 21 19 Respiratory Effort / Characteristics Respiratory Depth Respiratory Pattern Blood Pressure Blood Pressure Mean Blood Pressure Position Pulse Oximetry 92 99 Oxygen Delivery Method Oxygen Flow Rate 2 2 Sepsis Recent Fever Within 48 Hours Sepsis New/Unexplained Change in Mental Status Sepsis Action Taken by Nursing Oxygen Flow Rate - Titration Pulse Oximetry Post Tiitration 10/15/22 09:00 Temperature Temperature Source Pulse Rate 61 Pulse Rate from SpO2 Sensor 62 Respiratory Rate 24 Respiratory Effort / Characteristics Respiratory Depth Respiratory Pattern Blood Pressure Blood Pressure Mean Blood Pressure Position Pulse Oximetry 100 Oxygen Delivery Method Oxygen Flow Rate 2 Sepsis Recent Fever Within 48 Hours Sepsis New/Unexplained Change in Mental Status Sepsis Action Taken by Nursing Oxygen Flow Rate - Titration Pulse Oximetry Post Tiitration Laboratory Data 10/15/22 08:00 10/15/22 08:00 Lab Results 10/15/22 10/15/22 10/15/22 Range/Units 08:00 08:00 08:00 WBC 5.98 (4.8-10.8) K/ul RBC 3.64 L (4.20-5.40) M/uL Hgb 8.3 L (12.0-16.0) g/dl Hct 28.7 L (37.0-47.0) % MCV 78.8 L (80.0-100.0) fL MCH 22.8 L (25.0-34.0) pg MCHC 28.9 L (32.0-36.0) g/dL RDW Std Deviation 48.6 H (36.4-46.3) fL RDW Coeff of Gracie 17.1 H (11.5-14.5) % Plt Count 235 (130-400) K/uL MPV 9.6 (9.4-12.4) fL Immature Gran % (Auto) 0.5 % Neut % (Auto) 73.8 % Lymph % (Auto) 13.7 % [place] % (Auto) 8.2 % Eos % (Auto) 3.3 % Baso % (Auto) 0.5 % Neut # (Auto) 4.41 (1.40-6.50) K/uL Lymph # (Auto) 0.82 L (1.2-3.4) K/uL [place] # (Auto) 0.49 (0.11-0.59) K/uL Eos # (Auto) 0.20 (0-0.50) K/uL Baso # (Auto) 0.03 (0-0.2) K/uL Immature Gran # (Auto) 0.03 (0.01-0.20) K/uL Polychromasia 2+ Ovalocytes 1+ Sodium 136 (136-145) mmol/L Potassium 4.5 (3.5-5.1) mmol/L Chloride 100 (98-107) mmol/L Carbon Dioxide 30 (21-32) mmol/L Anion Gap 6 (3-11) BUN 34 H (6-23) mg/dl Creatinine 1.56 H (0.6-1.2) mg/dl Est Cr Clr Drug Dosing 29.2 ml/min Est GFR ( Amer) 34.8 ml/min Est GFR (Non-Af Amer) 30.0 ml/min BUN/Creatinine Ratio 21.8 H (10-20) Glucose 195 H (70-99(Fasting)) mg/dl Calcium 8.8 (8.6-10.3) mg/dl Magnesium 2.2 (1.7-2.4) mg/dl Iron 19 L (35-150) mcg/dl TIBC 399 (250-450) mcg/dl Unsaturated IBC 380 H (155-355) mcg/dl Transferrin % Sat 5 L (15-50) % Ferritin 19.7 (8-388) ng/ml Total Bilirubin 0.4 (0.2-1.0) mg/dl Direct Bilirubin 0.1 (0-0.2) mg/dl AST 30 (13-39) U/L ALT 24 (7-52) U/L Alkaline Phosphatase 92 (34-104) U/L Troponin I High Sens 26.1 H (0-14) pg/ml B-Natriuretic Peptide 1174 H (0-100) pg/ml Total Protein 6.9 (6.0-8.3) gm/dl Albumin 3.8 (3.4-5.0) gm/dl Procalcitonin (0-0.5) ng/ml Adenovirus (PCR) (NotDetected) B. pertussis DNA (PCR) (NotDetected) B.parapertussis DNA PCR (NotDetected) C. pneumoniae DNA (PCR) (NotDetected) Coronavirus OC43 (PCR) (NotDetected) Coronavirus HKU1 (PCR) (NotDetected) Coronavirus 229E (PCR) (NotDetected) SARS-CoV-2 (PCR) (Negative) Coronavirus NL63 (PCR) (NotDetected) Human Metapneumovir PCR (NotDetected) Influenza Type A (PCR) (NotDetected) Influenza Type B (PCR) (NotDetected) M. pneumoniae (PCR) (NotDetected) Parainfluenza 1 (PCR) (NotDetected) Parainfluenza 2 (PCR) (NotDetected) Parainfluenza 3 (PCR) (NotDetected) Parainfluenza 4 (PCR) (NotDetected) RSV (PCR) (NotDetected) Entero/Rhino (PCR) (NotDetected) 10/15/22 10/15/22 10/15/22 Range/Units 08:00 08:10 08:10 WBC (4.8-10.8) K/ul RBC (4.20-5.40) M/uL Hgb (12.0-16.0) g/dl Hct (37.0-47.0) % MCV (80.0-100.0) fL MCH (25.0-34.0) pg MCHC (32.0-36.0) g/dL RDW Std Deviation (36.4-46.3) fL RDW Coeff of Gracie (11.5-14.5) % Plt Count (130-400) K/uL MPV (9.4-12.4) fL Immature Gran % (Auto) % Neut % (Auto) % Lymph % (Auto) % [place] % (Auto) % Eos % (Auto) % Baso % (Auto) % Neut # (Auto) (1.40-6.50) K/uL Lymph # (Auto) (1.2-3.4) K/uL [place] # (Auto) (0.11-0.59) K/uL Eos # (Auto) (0-0.50) K/uL Baso # (Auto) (0-0.2) K/uL Immature Gran # (Auto) (0.01-0.20) K/uL Polychromasia Ovalocytes Sodium (136-145) mmol/L Potassium (3.5-5.1) mmol/L Chloride (98-107) mmol/L Carbon Dioxide (21-32) mmol/L Anion Gap (3-11) BUN (6-23) mg/dl Creatinine (0.6-1.2) mg/dl Est Cr Clr Drug Dosing ml/min Est GFR ( Amer) ml/min Est GFR (Non-Af Amer) ml/min BUN/Creatinine Ratio (10-20) Glucose (70-99(Fasting)) mg/dl Calcium (8.6-10.3) mg/dl Magnesium (1.7-2.4) mg/dl Iron (35-150) mcg/dl TIBC (250-450) mcg/dl Unsaturated IBC (155-355) mcg/dl Transferrin % Sat (15-50) % Ferritin (8-388) ng/ml Total Bilirubin (0.2-1.0) mg/dl Direct Bilirubin (0-0.2) mg/dl AST (13-39) U/L ALT (7-52) U/L Alkaline Phosphatase (34-104) U/L Troponin I High Sens (0-14) pg/ml B-Natriuretic Peptide (0-100) pg/ml Total Protein (6.0-8.3) gm/dl Albumin (3.4-5.0) gm/dl Procalcitonin < 0.05 (0-0.5) ng/ml Adenovirus (PCR) Not Detected (NotDetected) B. pertussis DNA (PCR) Not Detected (NotDetected) B.parapertussis DNA PCR Not Detected (NotDetected) C. pneumoniae DNA (PCR) Not Detected (NotDetected) Coronavirus OC43 (PCR) Not Detected (NotDetected) Coronavirus HKU1 (PCR) Not Detected (NotDetected) Coronavirus 229E (PCR) Not Detected (NotDetected) SARS-CoV-2 (PCR) NEGATIVE Not Detected (Negative) Coronavirus NL63 (PCR) Not Detected (NotDetected) Human Metapneumovir PCR Not Detected (NotDetected) Influenza Type A (PCR) Not Detected (NotDetected) Influenza Type B (PCR) Not Detected (NotDetected) M. pneumoniae (PCR) Not Detected (NotDetected) Parainfluenza 1 (PCR) Not Detected (NotDetected) Parainfluenza 2 (PCR) Not Detected (NotDetected) Parainfluenza 3 (PCR) Not Detected (NotDetected) Parainfluenza 4 (PCR) Not Detected (NotDetected) RSV (PCR) Not Detected (NotDetected) Entero/Rhino (PCR) Not Detected (NotDetected) Administered Medications Iron Sucrose 300 mg/ Sodium (Chloride) 265 mls @ 176.667 mls/hr IV ONE ONE Stop: 10/15/22 13:59 Last Admin: 10/15/22 13:30 Dose: 176.7 mls/hr Documented By: MHN Doxycycline Hyclate 100 mg/ (Dextrose) 110 mls @ 50 mls/hr IV Q12H CHRISTO Stop: 10/22/22 11:59 Last Admin: 10/15/22 13:18 Dose: 50 mls/hr Documented By: Robbie Imaging Data Radiologist's Impression: Chest X-Ray 10/15/22 08:01 XR chest 1V portable HISTORY: shortness of breath COMPARISON: Chest 07/23/2021. FINDINGS: Rotated study. No pneumothorax. The cardiac silhouette is enlarged. This may be accentuated by the rotated study. There is progressive interstit ial/vascular thickening consistent with mild pulmonary edema. Suspect trace bilateral pleural effusions. No new focal lung consolidations to suggest a pneumonia. IMPRESSION: 1. Rotated study. 2. Progressive cardiomegaly and interstitial/vascular thickening consistent with mild pulmonary edema. ACT 112: Negative or not required by law. Electronically signed by: Addison Washburn M.D. 10/15/2022 8:[address] 10/15/22 09:20 CT chest diagnostic wo con CT DOSE: 502.71 mGy.cm HISTORY: hypoxia, pulm edema TECHNIQUE: Multiaxial CT images of the chest were performed without contrast. A dose lowering technique was utilized adhering to the principles of ALARA. COMPARISON: Chest CT 07/05/2018. FINDINGS: There is respiratory motion artifact. There is right greater the left central bronchial wall thickening. There are small bilateral pleural effusions. No pneumothorax. Patchy groundglass densities within the lung bases favor dependent change/atelectasis. Scattered tree-in-bud nodular opacities have slightly progressed. This is consistent with an acute on chronic bronchiolitis. Mild interlobular septal thickening at the lung bases. Narrowing of the central bronchi is likely due to the expiratory phase of the study. The right basilar focal density has resolved in the interval. There are few punctate calcified granulomas within the right lung. There are old, healed bilateral rib fractures again noted. No acute fractures within the chest. Old compression deformities are seen within the thoracic spine. Limited views of the upper abdomen demonstrate normal liver and spleen. Moderate cardiomegaly again noted. No pericardial effusion. Multinodular thyroid gland, unchanged. Normal esophagus. Severe coronary artery calcifications. Mild calcified plaque within the normal caliber thoracic aorta. Mediastinal and bilateral hilar lymphadenopathy has progressed. For comparative purposes a dominant right paratracheal lymph node measures 17 x 11 mm, previously measuring 10 x 8 mm. IMPRESSION: 1. Moderate cardiomegaly with small bilateral pleural effusions and mild congestive change. This has progressed in the interval. 2. Mild mediastinal and bilateral hilar lymphadenopathy. This is nonspecific but has also progressed compared to the prior study. 3. Bronchial wall thickening with scattered tree-in-bud nodular opacities again noted. This has progressed in the interval. This may represent an acute or chronic infectious bronchiolitis. ACT 112: Negative or not required by law. Electronically signed by: Addison Washburn M.D. 10/15/2022 10:08 AM Discharge Plan Visit Data Chief Complaint: Shortness of Breath/Dyspnea ED Provider: Ochoa Colmenares Discharge Problem: Hypoxia, Acute respiratory distress Patient Disposition: Admitted As Inpatient Discharge Instructions Interventions: ED Discharge Assessment Last Done: 10/15/22 11:19
[2022-10-15 08:31] LABS: Hematocrit (blood only) 28.7 % (37.0-47.0); Hemoglobin 8.3 g/dl (12.0-16.0); Mean Corpuscular Hemoglobin 22.8 pg (25.0-34.0); Mean Corpuscular Hgb Conc 28.9 g/dL (32.0-36.0); Mean Corpuscular Volume 78.8 fL (80.0-100.0); Mean Platelet Volume 9.6 fL (9.4-12.4); Platelet Count 235 K/uL (130-400); RDW Coefficient of Variation 17.1 % (11.5-14.5); RDW Standard Deviation 48.6 fL (36.4-46.3); Red Blood Count 3.64 M/uL (4.20-5.40); White Blood Count 5.98 K/ul (4.8-10.8)
[2022-10-15 08:40] LABS: Albumin Level 3.8 gm/dl (3.4-5.0); BUN Creatinine Ratio 21.8 (10-20); Bilirubin Direct 0.1 mg/dl (0-0.2); Bilirubin,Total 0.4 mg/dl (0.2-1.0); Calcium 8.8 mg/dl (8.6-10.3); Creatinine Clr Calc Pharmacy 29.2 ml/min; Est GFR (African American) 34.8 ml/min; Magnesium 2.2 mg/dl (1.7-2.4); Potassium 4.5 mmol/L (3.5-5.1); Total Protein 6.9 gm/dl (6.0-8.3)
--- NOTE | 2022-10-15 08:42 | XRay Report ---
XR chest 1V portable HISTORY: shortness of breath COMPARISON: Chest 07/23/2021. FINDINGS: Rotated study. No pneumothorax. The cardiac silhouette is enlarged. This may be accentuated by the rotated study. There is progressive interstitial/vascular thickening consistent with mild pul monary edema. Suspect trace bilateral pleural effusions. No new focal lung consolidations to suggest a pneumonia. IMPRESSION: 1. Rotated study. 2. Progressive cardiomegaly and interstitial/vascular thickening consistent with mild pulmonary edema . ACT 112: Negative or not required by law. Electronically signed by: Addison Washburn M.D. 10/15/2022 8:41 AM
[2022-10-15 08:46] LABS: Troponin I High Sensitivity 26.1 pg/ml (0-14)
[2022-10-15 08:56] LABS: Basophils # (auto) 0.03 K/uL (0-0.2); Basophils % (auto) 0.5 %; Eosinophils % (auto) 3.3 %; Immature Granulocytes # (auto) 0.03 K/uL (0.01-0.20); Immature Granulocytes % (auto) 0.5 %; Lymphocytes # (auto) 0.82 K/uL (1.2-3.4); Lymphocytes % (auto) 13.7 %; Monocytes # (auto) 0.49 K/uL (0.11-0.59); Monocytes % (auto) 8.2 %; Neutrophils # (auto) 4.41 K/uL (1.40-6.50); Neutrophils % (auto) 73.8 %; Ovalocytes 1+; Polychromasia 2+
--- NOTE | 2022-10-15 09:56 | History & Physical Report ---
Date of Service October 15, 2022 Assessment & Plan (1) Shortness of breath: Plan: likely multifactorial, suspect combination of CHF (prior EF 30-40%) in setting of recently reduced diuretics, possible infectious process/PNA. Reported nonproductive cough (reported chronic cough, hx aspiration/esophageal dysmotility). Admit telemetry given hx parosxymal afib, not on anticoagulation Does have hx FIDE, completed 12mo of triple therapy per Dr Suarez prior notes (literature recs 18mo, unclear if would be able to tolerate regimen further) COVID, biofire testing negative. Procal <0.05. On admission, BNP elevated to 1174 . BNP day prior by Ced Mayen 1938 (was 1405 in September) Hypoxia/Shortness of breath ?combination volume overload/CHF/possible pneumonia CXR w/ congestion, hypoxia w/ SpO2 to 85% at senior care and 87% on arrival improved with 2L NC CT chest noncon given renal function for further eval * 1. Moderate cardiomegaly with small bilateral pleural effusions and mild congestive change. This has progressed in the interval. * 2. Mild mediastinal and bilateral hilar lymphadenopathy. This is nonspecific but has also progressed compared to the prior study. * 3. Bronchial wall thickening with scattered tree-in-bud nodular opacities again noted. This has progressed in the interval. This may represent an acute or chronic infectious bronchiolitis. Discussed w/ pulm provider, possible debris in esophagus, noting b/l effusions L>R, possible infectious process and agreed with empiric antibiotics and pulmonary toilet as well as diuretics. Incentive spirometer Flutter valve Duonebs Q4H [facility] -- would schedule for 24 hours, monitor response, possible transition to prn for tomorrow Discussed possible steroids if significant wheezing Supplemental O2 to maintain sats Volume overload/bilateral effusions/CHF (suspected) Suspect possible worsening EF/valvular disease vs recently reduced diuretics vs combination IV abx w/ Zosyn/Doxy as given Ceftriaxone IM at [facility] per records received, unsure if received dose this morning Lasix 40mg IV x 1 given typical diuretic dose 40mg PO until today--> monitor response -- if not net neg 1-2L by tonight consideration for additional dose. Cautious given RASHEED but suspect from volume overload and will hold her losartan Wise ordered for accurate I&O Check UA given confusion to ensure no UTI given reports confusion/prior fall (however patient denied having fall, just weak and not able to get back up, but clearly confused as to where she is but aware of the year) Troponin elevation Trop elevated 26.1 but suspect 2nd to demand from volume overload state.. EKG w/ CP. Hx afib not on AC. EKG w/ SR, 1st degree AV block. LAD. LVH. PVC no longer present compared to 2018 Check ECHO to r/o valvular disease, possible worsening EF --> NOW SEVERELY REDUCED EF, 20-25% Diuretics as above Trend troponin Monitor weights, I&Os Cards consult/CHF clinic Monitor response to diuretics, additional dosing as needed (2) Congestive heart failure (CHF): Plan: Suspected as main culprit for #1 Prior low EF on ECHO, elevated trop, evidence for volume overload on exam Repeated ECHO --> NOW WITH SEVERELY REDUCED EF, 20-25%, apical akinesis, severe global hypokinesis of LV. Mild MR. Compared to 2018, LV dysfunction now SEVERE Cards consulted, CHF clinic Lasix IV as above, likely needing increased diuretics, additional agents. Does not appear to be on spironolactone any longer either which she was on in the past Monitor response to diuretics, additional dosing as needed (3) Acute respiratory failure: Plan: of note, did have PET scan in past, no FDG uptake in mediastinum, noting uptake in thyroid (will need discussion w/ family in follow up if wanting to persue US for further eval outpatient) hypoxia on admission, 2nd to CHF/volume overload as well as possible infecitous process, findings in lingula Covering w/ abx as above, pulmonary toilet Also chronic aspirator, consult for speech -- discussed and likely need repeat video swallow on Monday Slippery diet for now (4) Hypoxia: Plan: combination volume overload, possible pna. supplemental O2 to maintain sats tx as above (5) Anemia: Plan: Also w/ recently diagnosed anemia per daughter however she notes they checked her stool for blood and this was negative Checked iron panel given MCV 78.8 on labs (appears has dropping between June and September of this year) iron panel w/ RUBEN Iron 19/trans % sat 5, unsat IBC 380 Venofer 300mg IV x 1 for today and will plan for repeat dosing for tomorrow. Diuretics for volume overload as well, as suspect some aspect of lows from volume overload state Monitor for any bleeding CBC in AM (6) Confusion: Plan: ?combination infection/volume overload will check UA to r/o UTI, underlying dementia at baseline but daughter reports increased confusion yesterday (7) Chronic pulmonary aspiration: Plan: noting -- speech consulted - slipper diet ordered will need repeat video swallow on monday (8) Esophageal dysmotility: Plan: per prior speech note 2018, patient denied issues but suspect chronic (however stable as has been years since prior eval) (9) Hypertension: Plan: BP stable Holding cozaar while using increased diuretics to prevent RASHEED/hypotension Continue metoprolol 75mg daily Monitor (10) Ischemic cardiomyopathy: Plan: Presented 03/30/12 with an acute anterior ID (peak troponin 99) - subtotal LAD occlusion and no other significant CAD. Cath by Dr Street Prior ECHO w/ EF 30-35%, anteroapical apical and septal akinesis without evidence of LV thrombus,and mild TR at that time and was d/c on ASA/Plavix, Xarelto, amiodarone, lisinopril, metoprolol and spironolactone. Subsequent dc of AC and antiarrhythmic therapy given no reoccurrence of atrial fibrillation. ECHO 2018 w/ LV 35%, mild LVH, grade I diastolic dysfunction. (11) Coronary artery disease: Plan: followed by Dr Street, no CP reported Trend troponin, EKG w/ CP Monitor on tele, ECHO as above. Cards to be consulted given new reduced EF as above (12) Pulmonary nodule: Plan: noted, no uptake on prior PET scan noted (note did have thyroid uptake -- will need further eval). TSH w am labs (13) H/O allergic bronchopulmonary aspergillosis: Plan: tx x 12 mo noted, discussed w/ pulm. no formal consult at present (14) Antiplatelet or antithrombotic long-term use: Plan: only remains on plavix (15) Fall: Plan: reported by daughter, no LOC/trauma, no findings on exam for head trauma ?from combination from above (16) Dyslipidemia: Plan: continue statin (17) Dementia: Plan: at baseline reported (18) Paroxysmal atrial fibrillation: Plan: no recurrence per Dr Street, not on anticoagulation any longer, just plavix. monitor on telemetry keep K/mag replete Plan DVT Proph: SCDS for now given anemia, unclear cause. No evidence for DVT at pres ent - monitor Will need PT/OT consults prior to return to [facility] History of Present Illness Chief Complaint: shortness of breath Primary Care Provider: [facility] 86yo female from [facility] found to be 85% and placed on 4L w/ rebound to 99%. Ba ck to 85% on room air and upon arrival pt 99% but de-sat to 87%. Per triage note, recent diagnosis with anemia. PMHx significant for FIDE (tx w/ Dr Suarez per notes), asthma, CHF (EF prior ~30- 40%), ischemic cardiomyopathy, possible MS, bronchiectasis, HTN, HLD, dementia. Appears patient had BNP level checked yesterday by oscar Berrios which was elevated to 1939, currently 1174 but was elevated to 1405 in September and patient current medication list only lists Lasix 20mg PO daily. Waiting for MAR for documentation but initial lists lasix 20mg PO order date 10/14 for start 10/15, unclear if she ever was given this. Also appears order for Ceftriaxone 1gm IV x 3 days ordered 10/14, start date 10/14. Hx CAD, on Plavix, also w/ hx paroxysmal afib, not on anticoagulation-- per Dr Street notes, no recurrence after her initial ID, AC was discontinued. No medication list sent with patient, baseline dementia and does not know all of her medications. Sent for CT chest given CXR congestion but poor imaging, currently getting ECHO at bedside by [facility] tech. Call to daughter for additoinal information -- endorses recent dx anemia but that they checked her moms stool for blood and this was negative. Daughter reports unwitnessed fall day prior reported but they examined her but no visible injuries or known head trauma and tates they were going to look at a CXR to look for fluid and other lab work and they told her she was very confused. Reported a lot of coughing and that they reduced her lasix from 40mg to 20mg. Had heart attack a while ago, daughter states about ten years ago, followed in past by Dr Street for regular check ups. Lungs have been worsening. Per daughter, diagnosed with MS, btu not clear that's what it is. 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 She states her brother/sister are local. + for COVID May of this year, currently negative on testing. Biofire pending CT chest ordered - b/l effusions L>R, debris in trachea. ?aspirating. Patient denies any issues but will consult speech for eval for completeness. Will also treat with empiric antibiotics. Discussed admission for further eval/diuretics/echo, etc. Telemetry monitoring. Questions/concerns addressed at this time. Allergies Allergy/AdvReac Type Severity Reaction Status Date / Time alendronate sodium Allergy Unknown unknown Verified 10/18/21 11:31 aspirin Allergy Unknown Unknown Verified 10/18/21 11:31 metformin Allergy Unknown Verified 10/18/21 11:31 mirtazapine Allergy Unknown Unknown Verified 10/18/21 11:31 sertraline [From Zoloft] Allergy Unknown Unknown Verified 10/18/21 11:31 Home Medications Medication Instructions Recorded Confirmed Type cholecalciferol (vitamin D3) 50 2,000 unit PO DAILY 01/08/18 10/15/22 History mcg (2,000 unit) capsule clopidogrel 75 mg tablet (Plavix) 75 mg PO DAILY 01/08/18 10/15/22 History montelukast 10 mg tablet 10 mg PO DAILY 01/08/18 10/15/22 History (Singulair) pantoprazole 40 mg tablet,delayed 40 mg PO QAM 01/08/18 10/15/22 History release (Protonix) acetaminophen 325 mg tablet 650 mg PO Q4H PRN pain/fever 01/22/18 10/15/22 History (Tylenol) albuterol sulfate 90 mcg/actuation 2 puff inhalation Q6H PRN Cough 01/22/18 10/15/22 History breath activated powder inhaler bisacodyl 10 mg rectal suppository 10 mg MA Q72H PRN Constipation 01/22/18 10/15/22 History (Dulcolax (bisacodyl)) coQ10 (ubiquinol) 200 mg capsule 200 mg PO DAILY 01/22/18 10/15/22 History fluticasone furoate 100 1 inh inhalation QAM 01/22/18 10/15/22 History mcg-vilanterol 25 mcg/dose inhalation powder (Breo Ellipta) losartan 25 mg tablet (Cozaar) 25 mg PO DAILY 01/22/18 10/15/22 History magnesium hydroxide 400 mg/5 mL 30 ml PO Q OTHER DAY PRN 01/22/18 10/15/22 History oral suspension (Milk of Magnesia) Constipation metoprolol succinate 50 mg 75 mg PO DAILY 01/22/18 10/15/22 History tablet,extended release 24 hr nystatin 100,000 unit/gram topical See Rx Instructions .Route 01/22/18 10/15/22 History cream .COMPLEX PRN Rash pravastatin 40 mg tablet 40 mg PO DAILY 01/22/18 10/15/22 History bupropion HCl 150 mg tablet,12 hr 150 mg PO QAM 09/24/18 10/15/22 History sustained-release (Wellbutrin SR) nitroglycerin 0.4 mg sublingual 0.4 mg sublingual Q5M PRN Chest 10/17/18 10/15/22 History tablet (Nitrostat) Pain furosemide 20 mg tablet 20 mg PO DAILY 08/16/19 10/15/22 History melatonin 5 mg tablet 5 mg PO HS 08/16/19 10/15/22 History sennosides 8.6 mg tablet (Senokot) 8.6 mg PO BID 08/16/19 10/15/22 History albuterol sulfate 2.5 mg/3 mL 2.5 mg inhalation Q4H PRN Wheezing 09/16/19 10/15/22 History (0.083 %) solution for nebulization ondansetron HCl 4 mg tablet 4 mg PO TID PRN Nausea 09/16/19 10/15/22 History (Zofran) polyethylene glycol 3350 17 17 gm PO 3XWK 09/16/19 10/15/22 History gram/dose oral powder (Miralax) gabapentin 100 mg capsule 100 mg PO TID 09/17/21 10/15/22 History trazodone 50 mg tablet 25 mg PO HS 09/17/21 10/15/22 History venlafaxine 37.5 mg 37.5 mg PO QAM 09/17/21 10/15/22 History capsule,extended release 24 hr (Effexor XR) acetaminophen 325 mg tablet 650 mg PO HS pain 10/15/22 10/15/22 History calcium carbonate 500 mg calcium 500 mg PO QID PRN Heartburn 10/15/22 10/15/22 History (1,250 mg) chewable tablet cyanocobalamin (vitamin B-12) 1,000 mcg PO DAILY 10/15/22 10/15/22 History 1,000 mcg tablet ferrous sulfate 325 mg (65 mg 325 mg PO DAILY 10/15/22 10/15/22 History iron) tablet ipratropium 0.5 mg-albuterol 3 mg 3 ml inhalation Q4H PRN Wheezing 10/15/22 10/15/22 History (2.5 mg base)/3 mL nebulization soln menthol 4 % topical gel (Biofreeze 1 applic topical Q4H PRN Pain 10/15/22 10/15/22 History (menthol)) potassium chloride 10 mEq 10 meq PO DAILY 10/15/22 10/15/22 History tablet,extended release(part/cryst) Past Med/Surg History Medical History Asthma Bronchiectasis Coronary artery disease Dyslipidemia Esophageal dysmotility GERD (gastroesophageal reflux disease) Hypertension Ischemic cardiomyopathy Moderate persistent asthma Multiple sclerosis Myocardial infarct, old Osteoporosis Paroxysmal atrial fibrillation Peripheral neuropathy Toxic multinodul goiter Surgical History History of arthroscopic surgery of shoulder History of cardiac catheterization History of heart artery stent History of tubal ligation Family History Father Myocardial infarction at age 46 from an ID Mother , age 77 from ID Myocardial infarction Social History Smoking Status: Former smoker Second Hand Exposure: No; Do You Dip or Chew Tobacco: No; Hx Alcohol Use: No Hx Substance Use: No Preferred Language: Romansh Communication Ability: Effective 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 Beliefs That Will Affect Care: None marital status: Current Living Situation: Personal Care Facility Feels Safe at Home: Yes Assistive Devices: Denture - Lower, Glasses, Hearing Aid - Left and Hearing Aid - Right Review of Systems Review of Systems: All systems reviewed & are unremarkable except as noted in HPI & below Physical Exam Physical Exam: General: chronicall ill appearing female sitting up in hospital bed, NAD, resting with 2L in place, general pallor HEENT: head normocephalic, atraumatic, mmm, trachea midline, +JVD Resp: diminished in the bases L>R, faint expiratory wheezing/crackles, on 2L, +cough CV: regular rate/rhtythm, +faint murmur, ?S3, bilateral pitting edema 2-3+ to the thigh, calves nontender GI+BS, soft/NT ; no wise MSK/Neuro: generalized weakness, no facial droop/slurred speech, follows commands as able Psych: alert to person/year, not date/time or location, reported dementia at baseline (per daughter on phone, patient more confused since yesterday) Skin: b/l dry skin to legs, flaking, slightly reddened spots but no obvious cellulitis/open lesions, nontender Results & Data Results & Data Vital Signs (Past 12 Hours) Vital Signs Temp Pulse Resp BP Pulse Ox O2 Del Method O2 Flow Rate 10/15/22 09:00 61 24 100 2 10/15/22 08:30 61 19 99 2 10/15/22 08:00 64 21 92 2 10/15/22 08:01 64 10/15/22 08:15 87 L Room Air 10/15/22 08:01 36.9 C 62 20 133/79 99 Room Air 10/15/22 08:01 Room Air Laboratory Results 10/15/22 10/15/22 10/15/22 Range/Units 08:10 08:10 08:00 WBC (4.8-10.8) K/ul RBC (4.20-5.40) M/uL Hgb (12.0-16.0) g/dl Hct (37.0-47.0) % MCV (80.0-100.0) fL MCH (25.0-34.0) pg MCHC (32.0-36.0) g/dL RDW Std Deviation (36.4-46.3) fL RDW Coeff of Gracie (11.5-14.5) % Plt Count (130-400) K/uL MPV (9.4-12.4) fL Immature Gran % (Auto) % Neut % (Auto) % Lymph % (Auto) % Warrick % (Auto) % Eos % (Auto) % Baso % (Auto) % Neut # (Auto) (1.40-6.50) K/uL Lymph # (Auto) (1.2-3.4) K/uL Warrick # (Auto) (0.11-0.59) K/uL Eos # (Auto) (0-0.50) K/uL Baso # (Auto) (0-0.2) K/uL Immature Gran # (Auto) (0.01-0.20) K/uL Polychromasia Ovalocytes Sodium (136-145) mmol/L Potassium (3.5-5.1) mmol/L Chloride (98-107) mmol/L Carbon Dioxide (21-32) mmol/L Anion Gap (3-11) BUN (6-23) mg/dl Creatinine (0.6-1.2) mg/dl Est Cr Clr Drug Dosing ml/min Est GFR ( Amer) ml/min Est GFR (Non-Af Amer) ml/min BUN/Creatinine Ratio (10-20) Glucose (70-99(Fasting)) mg/dl Calcium (8.6-10.3) mg/dl Magnesium (1.7-2.4) mg/dl Iron (35-150) mcg/dl TIBC (250-450) mcg/dl Unsaturated IBC (155-355) mcg/dl Transferrin % Sat (15-50) % Ferritin (8-388) ng/ml Total Bilirubin (0.2-1.0) mg/dl Direct Bilirubin (0-0.2) mg/dl AST (13-39) U/L ALT (7-52) U/L Alkaline Phosphatase (34-104) U/L Troponin I High Sens (0-14) pg/ml B-Natriuretic Peptide (0-100) pg/ml Total Protein (6.0-8.3) gm/dl Albumin (3.4-5.0) gm/dl Procalcitonin < 0.05 (0-0.5) ng/ml Adenovirus (PCR) Not Detected (NotDetected) B. pertussis DNA (PCR) Not Detected (NotDetected) B.parapertussis DNA PCR Not Detected (NotDetected) C. pneumoniae DNA (PCR) Not Detected (NotDetected) Coronavirus OC43 (PCR) Not Detected (NotDetected) Coronavirus HKU1 (PCR) Not Detected (NotDetected) Coronavirus 229E (PCR) Not Detected (NotDetected) SARS-CoV-2 (PCR) Not Detected NEGATIVE (Negative) Coronavirus NL63 (PCR) Not Detected (NotDetected) Human Metapneumovir PCR Not Detected (NotDetected) Influenza Type A (PCR) Not Detected (NotDetected) Influenza Type B (PCR) Not Detected (NotDetected) M. pneumoniae (PCR) Not Detected (NotDetected) Parainfluenza 1 (PCR) Not Detected (NotDetected) Parainfluenza 2 (PCR) Not Detected (NotDetected) Parainfluenza 3 (PCR) Not Detected (NotDetected) Parainfluenza 4 (PCR) Not Detected (NotDetected) RSV (PCR) Not Detected (NotDetected) Entero/Rhino (PCR) Not Detected (NotDetected) 10/15/22 10/15/22 10/15/22 Range/Units 08:00 08:00 08:00 WBC 5.98 (4.8-10.8) K/ul RBC 3.64 L (4.20-5.40) M/uL Hgb 8.3 L (12.0-16.0) g/dl Hct 28.7 L (37.0-47.0) % MCV 78.8 L (80.0-100.0) fL MCH 22.8 L (25.0-34.0) pg MCHC 28.9 L (32.0-36.0) g/dL RDW Std Deviation 48.6 H (36.4-46.3) fL RDW Coeff of Gracie 17.1 H (11.5-14.5) % Plt Count 235 (130-400) K/uL MPV 9.6 (9.4-12.4) fL Immature Gran % (Auto) 0.5 % Neut % (Auto) 73.8 % Lymph % (Auto) 13.7 % Warrick % (Auto) 8.2 % Eos % (Auto) 3.3 % Baso % (Auto) 0.5 % Neut # (Auto) 4.41 (1.40-6.50) K/uL Lymph # (Auto) 0.82 L (1.2-3.4) K/uL Warrick # (Auto) 0.49 (0.11-0.59) K/uL Eos # (Auto) 0.20 (0-0.50) K/uL Baso # (Auto) 0.03 (0-0.2) K/uL Immature Gran # (Auto) 0.03 (0.01-0.20) K/uL Polychromasia 2+ Ovalocytes 1+ Sodium 136 (136-145) mmol/L Potassium 4.5 (3.5-5.1) mmol/L Chloride 100 (98-107) mmol/L Carbon Dioxide 30 (21-32) mmol/L Anion Gap 6 (3-11) BUN 34 H (6-23) mg/dl Creatinine 1.56 H (0.6-1.2) mg/dl Est Cr Clr Drug Dosing 29.2 ml/min Est GFR ( Amer) 34.8 ml/min Est GFR (Non-Af Amer) 30.0 ml/min BUN/Creatinine Ratio 21.8 H (10-20) Glucose 195 H (70-99(Fasting)) mg/dl Calcium 8.8 (8.6-10.3) mg/dl Magnesium 2.2 (1.7-2.4) mg/dl Iron 19 L (35-150) mcg/dl TIBC 399 (250-450) mcg/dl Unsaturated IBC 380 H (155-355) mcg/dl Transferrin % Sat 5 L (15-50) % Ferritin 19.7 (8-388) ng/ml Total Bilirubin 0.4 (0.2-1.0) mg/dl Direct Bilirubin 0.1 (0-0.2) mg/dl AST 30 (13-39) U/L ALT 24 (7-52) U/L Alkaline Phosphatase 92 (34-104) U/L Troponin I High Sens 26.1 H (0-14) pg/ml B-Natriuretic Peptide 1174 H (0-100) pg/ml Total Protein 6.9 (6.0-8.3) gm/dl Albumin 3.8 (3.4-5.0) gm/dl Procalcitonin (0-0.5) ng/ml Adenovirus (PCR) (NotDetected) B. pertussis DNA (PCR) (NotDetected) B.parapertussis DNA PCR (NotDetected) C. pneumoniae DNA (PCR) (NotDetected) Coronavirus OC43 (PCR) (NotDetected) Coronavirus HKU1 (PCR) (NotDetected) Coronavirus 229E (PCR) (NotDetected) SARS-CoV-2 (PCR) (Negative) Coronavirus NL63 (PCR) (NotDetected) Human Metapneumovir PCR (NotDetected) Influenza Type A (PCR) (NotDetected) Influenza Type B (PCR) (NotDetected) M. pneumoniae (PCR) (NotDetected) Parainfluenza 1 (PCR) (NotDetected) Parainfluenza 2 (PCR) (NotDetected) Parainfluenza 3 (PCR) (NotDetected) Parainfluenza 4 (PCR) (NotDetected) RSV (PCR) (NotDetected) Entero/Rhino (PCR) (NotDetected) Diagnostic Findings Chest X-Ray 10/15/22 08:01 XR chest 1V portable HISTORY: shortness of breath COMPARISON: Chest 07/23/2021. FINDINGS: Rotated study. No pneumothorax. The cardiac silhouette is enlarged. This may be accentuated by the rotated study. There is progressive interstitial/vascular thickening consistent with mild pulmonary edema. Suspect trace bilateral pleural effusions. No new focal lung consolidations to suggest a pneumonia. IMPRESSION: 1. Rotated study. 2. Progressive cardiomegaly and interstitial/vascular thickening consistent with mild pulmonary edema. ACT 112: Negative or not required by law. Electronically signed by: Addison Washburn M.D. 10/15/2022 8:[address] 10/15/22 09:20 CT chest diagnostic wo con CT DOSE: 502.71 mGy.cm HISTORY: hypoxia, pulm edema TECHNIQUE: Multiaxial CT images of the chest were performed without contrast. A dose lowering technique was utilized adhering to the principles of ALARA. COMPARISON: Chest CT 07/05/2018. FINDINGS: There is respiratory motion artifact. There is right greater the left central bronchial wall thickening. There are small bilateral pleural effusions. No pneumothorax. Patchy groundglass densities within the lung bases favor dependent change/atelectasis. Scattered tree-in-bud nodular opacities have slightly progressed. This is consistent with an acute on chronic bronchiolitis. Mild interlobular septal thickening at the lung bases. Narrowing of the central bronchi is likely due to the expiratory phase of the study. The right basilar focal density has resolved in the interval. There are few punctate calcified granulomas within the right lung. There are old, healed bilateral rib fractures again noted. No acute fractures within the chest. Old compression deformities are seen within the thoracic spine. Limited views of the upper abdomen demonstrate normal liver and spleen. Moderate cardiomegaly again noted. No pericardial effusion. Multinodular thyroid gland, unchanged. Normal esophagus. Severe coronary artery calcifications. Mild calcified plaque within the normal caliber thoracic aorta. Mediastinal and bilateral hilar lymphadenopathy has progressed. For comparative purposes a dominant right paratracheal lymph node measures 17 x 11 mm, previously measuring 10 x 8 mm. IMPRESSION: 1. Moderate cardiomegaly with small bilateral pleural effusions and mild congestive change. This has progressed in the interval. 2. Mild mediastinal and bilateral hilar lymphadenopathy. This is nonspecific but has also progressed compared to the prior study. 3. Bronchial wall thickening with scattered tree-in-bud nodular opacities again noted. This has progressed in the interval. This may represent an acute or chronic infectious bronchiolitis. ACT 112: Negative or not required by law. Electronically signed by: Addison Washburn M.D. 10/15/2022 10:08 AM Supervising Physician Co-Signing Physician Notes PA Supervision Note: I personally saw and examined the patient. I verified all crocker points and agree with EBN Mcgill with the following exceptions and/or additions: Subjective: 86 yo F Hx CAD/ischemic cardiomyopathy, CHF, moderate persistent asthma, AFib, dementia presented from [facility] for hypoxia and worsening confusion. On 2LNC during my interview, patient denies increased SOB or cough (reports she has some of both at baseline), denies fevers, nausea, diarrhea, abdominal pain. Physical exam: Vitals reviewed Gen: Alert and oriented, NAD HEENT: anicteric sclerae, EOMI CV: irregularly irregular HR, noted pedal edema Pulm: crackles at bases, poor air movement Abd: +BS soft NT ND no masses Skin: no rashes, warm/dry Neuro: No focal neurologic deficits Labs, Rads, and ECG reviewed Assessment and Plan: acute hypoxic respiratory failure: multifactorial with suspected HFpEF exacerbation, community-acquired/aspiration pneumonia. Hypoxia resolved with 2LNC. Treatment of these suspicions as below. HFrEF exacerbation: suspicion of such given imaging findings, hypoxia, elevated BNP, recent decrease in home diuretic dosing, weight +7kg from readings last year. Wise for I/O monitoring while receiving IV diuretics, keep eye on creatinine given CKD history. Echo ordered noting EF 20-25% (decreased function compared to 07/2017 study). Troponin very minimally elevated and already downtrending on 2 hour repeat, no evidence of ACS. Cardiology consulted and appreciate recommendations. Possible PNA: evidence of possible infectious bronchiolitis, worsening hilar lymphadenopathy, debris in esophagus. Per Speech provider in past noted to have poorly functioning esophagus, video study on Monday scheduled. Biofire negative. Procal undetectable. Cont Abx for now, however possible that the CT findings in this regard are chronic and this admission is more 2/2 fluid overload. Anemia: Hgb 8.3 without evidence of bleeding, microcytic MCV, noted iron deficiency on labwork, will replete with IV Venofer Plan otherwise as described above. 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
--- NOTE | 2022-10-15 10:11 | CT Scan Report ---
CT chest diagnostic wo con CT DOSE: 502.71 mGy.cm HISTORY: hypoxia, pulm edema TECHNIQUE: Multiaxial CT images of the chest were performed without contrast. A dose lowering techni que was utilized adhering to the principles of ALARA. COMPARISON: Chest CT 07/05/2018. FINDINGS: There is respiratory motion artifact. There is right greater the left central bronchial wal l thickening. There are small bilateral pleural effusions. No pneumothorax. Patchy groundglass densit ies within the lung bases favor dependent change/atelectasis. Scattered tree-in-bud nodular opacities have slightly progressed. This is consistent with an acute on chronic bronchiolitis. Mild interlobul ar septal thickening at the lung bases. Narrowing of the central bronchi is likely due to the expirat ory phase of the study. The right basilar focal density has resolved in the interval. There are few p unctate calcified granulomas within the right lung. There are old, healed bilateral rib fractures aga in noted. No acute fractures within the chest. Old compression deformities are seen within the thorac ic spine. Limited views of the upper abdomen demonstrate normal liver and spleen. Moderate cardiomega ly again noted. No pericardial effusion. Multinodular thyroid gland, unchanged. Normal esophagus. Sev ere coronary artery calcifications. Mild calcified plaque within the normal caliber thoracic aorta. M ediastinal and bilateral hilar lymphadenopathy has progressed. For comparative purposes a dominant ri ght paratracheal lymph node measures 17 x 11 mm, previously measuring 10 x 8 mm. IMPRESSION: 1. Moderate cardiomegaly with small bilateral pleural effusions and mild congestive change. This has progressed in the interval. 2. Mild mediastinal and bilateral hilar lymphadenopathy. This is nonspecific but has also progressed compared to the prior study. 3. Bronchial wall thickening with scattered tree-in-bud nodular opacities again noted. This has progr essed in the interval. This may represent an acute or chronic infectious bronchiolitis. ACT 112: Negative or not required by law. Electronically signed by: Addison Washburn M.D. 10/15/2022 10:08 AM
[2022-10-15 10:54] LABS: Ferritin 19.7 ng/ml (8-388)
[2022-10-15 11:05] LABS: Adenovirus PCR Not Detected (NotDetected); Bordetella parapertussis PCR Not Detected (NotDetected); Bordetella pertussis PCR Not Detected (NotDetected); Chlamydia pneumoniae PCR Not Detected (NotDetected); Coronavirus 229E PCR Not Detected (NotDetected); Coronavirus CoV-2 (COVID19)PCR Not Detected (NotDetected); Coronavirus HKU1 PCR Not Detected (NotDetected); Coronavirus NL63 PCR Not Detected (NotDetected); Coronavirus OC43PCR Not Detected (NotDetected); Human Metapneumovirus PCR Not Detected (NotDetected); Influenza A PCR Not Detected (NotDetected); Influenza B PCR Not Detected (NotDetected); Mycoplasma pneumoniae PCR Not Detected (NotDetected); Parainfluenza Virus 1 PCR Not Detected (NotDetected); Parainfluenza Virus 2 PCR Not Detected (NotDetected); Parainfluenza Virus 3 PCR Not Detected (NotDetected); Parainfluenza Virus 4 PCR Not Detected (NotDetected); Respiratory Syncytial VirusPCR Not Detected (NotDetected); Rhinovirus/Enterovirus PCR Not Detected (NotDetected)
--- NOTE | 2022-10-15 11:30 | XCELERA ---
[id number] [id number]
--- NOTE | 2022-10-15 11:40 | Electrocardiogram Report ---
Test Reason : Blood Pressure : / mmHG Vent. Rate : 064 BPM Atrial Rate : 064 BPM P-R Int : 250 ms QRS Dur : 102 ms QT Int : 444 ms P-R-T Axes : 060 -47 088 degrees QTc Int : 458 ms Sinus rhythm with 1st degree A-V block Left axis deviation Moderate voltage criteria for LVH, may be normal variant Septal infarct (cited on or before 01-APR-2012) Abnormal ECG When compared with ECG of 22-JAN-2018 09:23, Premature ventricular complexes are no longer Present Confirmed by Estrada Thurman ([id number]) on 10/15/2022 11:40:14 AM Referred By: Confirmed By:Estrada Thurman
[2022-10-15] MEDS ORDERED: NITROGLYCERIN SL 0.4 MG/TAB TAB SL PRN (11:56)
[2022-10-15] MEDS ORDERED: FUROSEMIDE 40 MG/4 ML VIAL IV ONE (11:56)
[2022-10-15] MEDS ORDERED: bisacodyL 10 MG SUPP PR PRN (11:56)
[2022-10-15] MEDS ORDERED: NON-FORMULARY MEDICATION (Menthol [Biofreeze (Menthol)] 4 % Gel) TOP PRN (11:56)
[2022-10-15] MEDS ORDERED: ACETAMINOPHEN 325 MG TAB PO PRN (11:56)
[2022-10-15] MEDS ORDERED: ONDANSETRON INJ 2 MG/ML 2 ML VIAL IV PRN (11:56)
[2022-10-15] MEDS ORDERED: ALBUTEROL HFA 8 GM INHALER INH PRN (12:19)
[2022-10-15] MEDS ORDERED: PIPERACILLIN/TAZOBACTAM 4.5 GM in DEXTROSE 5% 100 ML IV ONE (12:30)
[2022-10-15] MEDS ORDERED: IRON SUCROSE 300 MG in SODIUM CHLORIDE 0.9% 250 ML IV ONE (12:30)
[2022-10-15] MEDS: DOXYCYCLINE HYCLATE 100 MG in DEXTROSE 5% 100 ML IV SCH (13:18)
[2022-10-15] MEDS: ALBUT/IPRATROP 3MG/0.5MG NEB 3 ML VIAL NEB SCH ×4 (14:39→23:00)
--- NOTE | 2022-10-15 14:56 | Communication Note ---
Date of Service: October 15, 2022 Updated daughter on room change, ECHO findings and diuretics/abx. Discussed prior PET scan w/ negative uptake to lungs/mediastinum, however they were unaware of thyroid uptake. Discussed will plan to check TSH but discussed if they would want to pursue this. Daughter stated patient declining, agreed to abx/diuretics, making comfortable but doesn't not feel they would want to be aggressive about pursuing any kind of biopsy/treatment for this. Discussed to discuss w/ other family members and we will be in continued contact throughout the weekend. Thankful for update. Questions/concerns addressed at this time.
[2022-10-15] MEDS: GABAPENTIN 100 MG CAP PO SCH ×2 (15:30→21:35)
[2022-10-15 15:36] LABS: Appearance Urine Clear (Clear); Bilirubin Urine Negative (Negative); Blood Urine Negative (Negative); Color Urine Yellow; Glucose Urine UA Negative (Negative); Ketones Urine Negative (Negative); Leukocyte Esterase Urine Negative (Negative); Nitrite Urine Negative (Negative); Protein Urine Negative (Negative); Specific Gravity Urine 1.018 (1.000-1.030); Urobilinogen Urine Negative (Negative); pH Urine 5.5 (4.5-7.5)
[2022-10-15] MEDS: PIPERACILLIN/TAZOBACTAM 4.5 GM in DEXTROSE 5% 100 ML IV SCH (18:23)
[2022-10-15] MEDS: traZODone HCL 50 MG TAB PO SCH (21:36)
[2022-10-15] MEDS: MELATONIN 3 MG TAB PO SCH (21:37)
[2022-10-15] MEDS: SENNA 8.6 MG TAB PO SCH (21:37)
[2022-10-16] MEDS: DOXYCYCLINE HYCLATE 100 MG in DEXTROSE 5% 100 ML IV SCH ×3 (00:34→23:28)
[2022-10-16] MEDS: PIPERACILLIN/TAZOBACTAM 4.5 GM in DEXTROSE 5% 100 ML IV SCH ×3 (02:46→17:45)
[2022-10-16] MEDS: ALBUT/IPRATROP 3MG/0.5MG NEB 3 ML VIAL NEB SCH ×6 (03:23→22:53)
[2022-10-16 07:16] LABS: Basophils # (auto) 0.03 K/uL (0-0.2); Basophils % (auto) 0.4 %; Eosinophils # (auto) 0.22 K/uL (0-0.50); Hematocrit (blood only) 29.5 % (37.0-47.0); Hemoglobin 8.7 g/dl (12.0-16.0); Immature Granulocytes # (auto) 0.05 K/uL (0.01-0.20); Immature Granulocytes % (auto) 0.7 %; Lymphocytes # (auto) 0.83 K/uL (1.2-3.4); Lymphocytes % (auto) 11.3 %; Mean Corpuscular Hgb Conc 29.5 g/dL (32.0-36.0); Monocytes # (auto) 0.63 K/uL (0.11-0.59); Monocytes % (auto) 8.6 %; Neutrophils # (auto) 5.56 K/uL (1.40-6.50); Platelet Count 230 K/uL (130-400); RDW Coefficient of Variation 17.4 % (11.5-14.5); RDW Standard Deviation 47.5 fL (36.4-46.3); Red Blood Count 3.78 M/uL (4.20-5.40); White Blood Count 7.32 K/ul (4.8-10.8)
[2022-10-16 07:37] LABS: BUN Creatinine Ratio 19.1 (10-20); Calcium 8.8 mg/dl (8.6-10.3); Creatinine Clr Calc Pharmacy 31.9 ml/min; Est GFR (African American) 39.3 ml/min; Est GFR (Non-African American) 33.9 ml/min; Magnesium 2.2 mg/dl (1.7-2.4); Potassium 3.8 mmol/L (3.5-5.1)
[2022-10-16] MEDS ORDERED: POTASSIUM CHLORIDE 20 MEQ/15 ML UDC PO STA (07:41)
[2022-10-16] MEDS ORDERED: FUROSEMIDE 40 MG/4 ML VIAL IV ONE (07:41)
--- NOTE | 2022-10-16 07:41 | Hospitalist Progress Note ---
Date of Service October 16, 2022 Assessment & Plan (1) Congestive heart failure (CHF): Plan: Suspected as main culprit for admission w/ SOB/hypoxia suspect combination of CHF (prior EF 30-40%) in setting of recently reduced diuretics, possible infectious process/PNA. Reported nonproductive cough (reported chronic cough, hx aspiration/esophageal dysmotility). On admission, BNP elevated to 1174 . BNP day prior by Ced Mayen 1938 (was 1405 in September) CXR w/ congestion, hypoxia w/ SpO2 to 85% [facility] and 87% on arrival improved with 2L NC CT chest noncon given renal function for further eval -- small b/l effusions and mild congestive change progressed in interval Prior low EF on ECHO, elevated trop, evidence for volume overload on exam Repeated ECHO --> NOW WITH SEVERELY REDUCED EF, 20-25%, apical akinesis, severe global hypokinesis of LV. Mild MR. Compared to 2018, LV dysfunction now SEVERE Lasix 40mg IV x 1 on admission (previously on 40mg PO before reduced to 20mg PO daily) I&O--> output 3.5L, net negative 1.9L. kidney function stable/improved Cr 1.41 and will repeat lasix 40mg IV again for today + PO Kcl 40meq Daily weights - down 2kg Cards consulted/CHF clinic in follow up Additional 40mg IV AM 10/16 w/ PO KCl, consider additional dose this evening pending output Resumed losartan Does not appear to be on spironolactone any longer either which she was on in the past and could have contributed to weight gain/worsening cough over the past year ?Consideration for Entresto given EF 20-25%- defer to cardiology Likely needing increased diuretics at discharge/additional agents but will monitor response to above/further adjustments possible tomorrow ABx as below for possible infectious etiology empirically but has been afebrile/no leukocytosis Monitor labs in AM (2) Shortness of breath: Plan: likely multifactorial, CHF w/ worsening EF as above, also w/ possible infectious bronchiolitis in setting patient w/ hx FIDE, chronic aspiration/esophageal dysmotility COVID/biofire negative, procal <0.05 Hx FIDE, completed 12mo of triple therapy per Dr Suarez prior notes (literature recs 18mo, unclear if would be able to tolerate regimen further) CT chest Mild mediastinal and bilateral hilar lymphadenopathy. This is nonspecific but has also progressed compared to the prior study. Bronchial wall thickening with scattered tree-in-bud nodular opacities again noted. This has progressed in the interval. This may represent an acute or chronic infectious bronchiolitis. Discussed w/ pulm provider, possible debris in esophagus, noting b/l effusions L>R, possible infectious process and agreed with empiric antibiotics (on Zosyn/Doxy) and pulmonary toilet as well as diuretics. Lasix as above for congestive changes/EF Duonebs Q4H CHRISTO -- scheduled --> possible transition to prn for tomorrow Discussed possible steroids if significant wheezing however improving w/ diuretics Supplemental O2 to maintain sats, currently on 2L NC -- attempted to wean but 88%. Diuretics as above and continued titrations as able Encouraged use of incentive spirometer, flutter valve ?if underlying JAMA -- attempt overnight study if needed if gets off O2 w/ diuretics. Possible need for supplemental Oxygen at discharge and will monitor (3) Acute respiratory failure: Plan: of note, did have PET scan in past, no FDG uptake in mediastinum, noting uptake in thyroid (family unaware of finding initially, however did discuss finding last evening) * Discussed prior PET scan w/ negative uptake to lungs/mediastinum, however they were unaware of thyroid uptake. Discussed will plan to check TSH but discussed if they would want to pursue this. * Daughter stated patient declining, agreed to abx/diuretics, making comfortable but doesn't not feel they would want to be aggressive about pursuing any kind of biopsy/treatment for this. Discussed to discuss w/ other family members and we will be in continued contact throughout the weekend. Still requiring supplemental O2 -- titrate as able Abx/diuretics/pulmonary toilet as above Speech consulted given chronic aspiration/esophageal issues --> video swallow for tomorrow. Has been tolerating slippery AHA in meantime O2 to maintain sats (4) Hypoxia: Plan: combination volume overload, possible pna. supplemental O2 to maintain sats tx as above (5) Anemia: Plan: Also w/ recently diagnosed anemia per daughter however she notes they checked her stool for blood and this was negative. Hgb 8.3 on admission with baseline in 8-10s over past couple months (first drop 10/2021) Checked iron panel given MCV 78.8 on labs (appears has dropping between June and September of this year) Iron panel w/ RUBEN Iron 19/trans % sat 5, unsat IBC 380 Venofer 300mg IV on admission, repeat 200mg IV for today and can given additional dose for tomorrow On protonix once daily, given no blood in prior stool reported will plan to continue once daily. TSH wnl Hgb stable/improved on repeat from 8.3--> 8.7 w/ Venofer and diuretics CBC in AM (6) Confusion: Plan: ?combination infection/volume overload no worsening confusion, suspect from volume overloaded state/hypoxia at [facility] UA w/o evidence for infection. No fever/leukocytosis As above, thyroid nodules/uptake on prior PET --> family declined further eval for now, focus on diuretics/abx for now (7) Chronic pulmonary aspiration: Plan: noting -- speech consulted - slipper diet ordered will need repeat video swallow on monday, NPO midnight (8) Esophageal dysmotility: Plan: per prior speech note 2018, patient denied issues but suspect chronic (however stable as has been years since prior eval) aspiration precautions, speech consult video for tomorrow (9) Hypertension: Plan: BP stable but borderline, suspect from volume overload Lasix as above, cozaar resumed given reduced EF/CHF and renal function stable Consider addition of spironolactone for additional diuretic as previously on Continues on metoprolol 75mg daily Monitor (10) Ischemic cardiomyopathy: Plan: Presented 03/30/12 with an acute anterior MD (peak troponin 99) - subtotal LAD occlusion and no other significant CAD. Cath by Dr Street Prior ECHO w/ EF 30-35%, anteroapical apical and septal akinesis without evidence of LV thrombus,and mild TR at that time and was d/c on ASA/Plavix, Xarelto, amiodarone, lisinopril, metoprolol and spironolactone. Subsequent dc of AC and antiarrhythmic therapy given no reoccurrence of atrial fibrillation. ECHO 2018 w/ LV 35%, mild LVH, grade I diastolic dysfunction. Repeat ECHO as above, worsened ER (11) Coronary artery disease: Plan: followed by Dr Street No CP reported, trop trended down on repeat, likely from demand ECHO as above, cards consulted EKG w/ CP (12) Pulmonary nodule: Plan: noted, no uptake on prior PET scan noted (note did have thyroid uptake -- will need further eval if family decides they want to but declined yesterday). Patient is DNR (13) H/O allergic bronchopulmonary aspergillosis: Plan: tx x 12 mo noted, discussed w/ pulm. no formal consult at present (14) Antiplatelet or antithrombotic long-term use: Plan: only remains on plavix (15) Fall: Plan: reported by daughter, no LOC/trauma, no findings on exam for head trauma ?from combination from above (16) Dyslipidemia: Plan: continue statin (17) Dementia: Plan: at baseline reported (18) Paroxysmal atrial fibrillation: Plan: no recurrence per Dr Street post MD, not on anticoagulation any longer, just pl avix. monitor on telemetry keep K/mag replete (19) Elevated troponin: Plan: Troponin elevation Trop elevated 26.1 but suspect 2nd to demand from volume overload state. downtrended on repeat, cancelled further draws EKG w/ CP. Hx afib not on AC. EKG w/ SR, 1st degree AV block. LAD. LVH. PVC no longer present compared to 2018 ECHO as above Plan DVT Proph: SCDS for now given anemia, unclear cause. No evidence for DVT at present - monitor Lasix IV as outlined, additional dosing if needed. Cards consult appreciated, will need CHF clinic follow up (consult placed) Consider adding heparin SQ this evening if no issues. No evidence for DVT at present Therapy consults pending (from Ced) Admission and Anticipated Discharge Date Admission Date: October 15, 2022 Supervising Physician Co-Signing Physician Notes The patient was not seen by me. The chart was reviewed. Case discussed with BEN Roberts. Agree with assessment and plan Subjective Evaluated this morning, no acute issue. On 2L, cough seems to be improving. Good diuresis with lasix and will plan to repeat dose for today. No chest pain, abdominal pain, nausea or other complaints at this time. Updated daughter this morning by phone, her other sibling will be here later today and will plan to have oncoming team update again tomorrow and awaiting cardiology consultation. Questions/concerns addressed at this time. Results & Data Results & Data Vital Signs (Past 12 Hours) Vital Signs Temp Pulse Pulse Resp BP Pulse Ox O2 Del Method 10/16/22 07:14 56 L 16 97 Nasal Cannula 10/16/22 03:28 36.6 C 61 20 112/49 L 96 Room Air 10/16/22 03:26 61 18 96 Nasal Cannula 10/15/22 23:36 36.6 C 61 18 119/68 99 Room Air 10/15/22 23:31 65 10/15/22 20:05 Nasal Cannula 10/15/22 19:36 36.7 C 75 18 123/56 L 97 Room Air O2 Flow Rate 10/16/22 07:14 2 10/16/22 03:28 10/16/22 03:26 2 10/15/22 23:36 10/15/22 23:31 10/15/22 20:05 2 10/15/22 19:36 Laboratory Results 10/16/22 10/16/22 10/16/22 Range/Units 06:44 06:44 06:44 WBC 7.32 (4.8-10.8) K/ul RBC 3.78 L (4.20-5.40) M/uL Hgb 8.7 L (12.0-16.0) g/dl Hct 29.5 L (37.0-47.0) % MCV 78.0 L (80.0-100.0) fL MCH 23.0 L (25.0-34.0) pg MCHC 29.5 L (32.0-36.0) g/dL RDW Std Deviation 47.5 H (36.4-46.3) fL RDW Coeff of Gracie 17.4 H (11.5-14.5) % Plt Count 230 (130-400) K/uL MPV 10.0 (9.4-12.4) fL Immature Gran % (Auto) 0.7 % Neut % (Auto) 76.0 % Lymph % (Auto) 11.3 % Cameron % (Auto) 8.6 % Eos % (Auto) 3.0 % Baso % (Auto) 0.4 % Neut # (Auto) 5.56 (1.40-6.50) K/uL Lymph # (Auto) 0.83 L (1.2-3.4) K/uL Cameron # (Auto) 0.63 H (0.11-0.59) K/uL Eos # (Auto) 0.22 (0-0.50) K/uL Baso # (Auto) 0.03 (0-0.2) K/uL Immature Gran # (Auto) 0.05 (0.01-0.20) K/uL Sodium 137 (136-145) mmol/L Potassium 3.8 (3.5-5.1) mmol/L Chloride 99 (98-107) mmol/L Carbon Dioxide 33 H (21-32) mmol/L Anion Gap 5 (3-11) BUN 27 H (6-23) mg/dl Creatinine 1.41 H (0.6-1.2) mg/dl Est Cr Clr Drug Dosing 31.9 ml/min Est GFR ( Amer) 39.3 ml/min Est GFR (Non-Af Amer) 33.9 ml/min BUN/Creatinine Ratio 19.1 (10-20) Glucose 118 H (70-99(Fasting)) mg/dl Estimat Average Glucose mg/dl Hemoglobin A1c (4.5-5.6) % Calcium 8.8 (8.6-10.3) mg/dl Magnesium 2.2 (1.7-2.4) mg/dl Troponin I High Sens (0-14) pg/ml TSH 2.250 (0.300-4.500) uIu/ml Urine Color Urine Appearance (Clear) Urine pH (4.5-7.5) Ur Specific [place] (1.000-1.030) Urine Protein (Negative) Urine Glucose (UA) (Negative) Urine Ketones (Negative) Urine Blood (Negative) Urine Nitrite (Negative) Urine Bilirubin (Negative) Urine Urobilinogen (Negative) Ur Leukocyte Esterase (Negative) Lyme Disease IgG Ab (Negative) Lyme Disease IgM Ab (Negative) 10/16/22 10/16/22 10/15/22 Range/Units 06:44 06:44 14:32 WBC (4.8-10.8) K/ul RBC (4.20-5.40) M/uL Hgb (12.0-16.0) g/dl Hct (37.0-47.0) % MCV (80.0-100.0) fL MCH (25.0-34.0) pg MCHC (32.0-36.0) g/dL RDW Std Deviation (36.4-46.3) fL RDW Coeff of Gracie (11.5-14.5) % Plt Count (130-400) K/uL MPV (9.4-12.4) fL Immature Gran % (Auto) % Neut % (Auto) % Lymph % (Auto) % Cameron % (Auto) % Eos % (Auto) % Baso % (Auto) % Neut # (Auto) (1.40-6.50) K/uL Lymph # (Auto) (1.2-3.4) K/uL Cameron # (Auto) (0.11-0.59) K/uL Eos # (Auto) (0-0.50) K/uL Baso # (Auto) (0-0.2) K/uL Immature Gran # (Auto) (0.01-0.20) K/uL Sodium (136-145) mmol/L Potassium (3.5-5.1) mmol/L Chloride (98-107) mmol/L Carbon Dioxide (21-32) mmol/L Anion Gap (3-11) BUN (6-23) mg/dl Creatinine (0.6-1.2) mg/dl Est Cr Clr Drug Dosing ml/min Est GFR ( Amer) ml/min Est GFR (Non-Af Amer) ml/min BUN/Creatinine Ratio (10-20) Glucose (70-99(Fasting)) mg/dl Estimat Average Glucose 143 mg/dl Hemoglobin A1c 6.6 H (4.5-5.6) % Calcium (8.6-10.3) mg/dl Magnesium (1.7-2.4) mg/dl Troponin I High Sens 23.4 H (0-14) pg/ml TSH (0.300-4.500) uIu/ml Urine Color Urine Appearance (Clear) Urine pH (4.5-7.5) Ur Specific [place] (1.000-1.030) Urine Protein (Negative) Urine Glucose (UA) (Negative) Urine Ketones (Negative) Urine Blood (Negative) Urine Nitrite (Negative) Urine Bilirubin (Negative) Urine Urobilinogen (Negative) Ur Leukocyte Esterase (Negative) Lyme Disease IgG Ab Negative (Negative) Lyme Disease IgM Ab Negative (Negative) 10/15/22 Range/Units 14:20 WBC (4.8-10.8) K/ul RBC (4.20-5.40) M/uL Hgb (12.0-16.0) g/dl Hct (37.0-47.0) % MCV (80.0-100.0) fL MCH (25.0-34.0) pg MCHC (32.0-36.0) g/dL RDW Std Deviation (36.4-46.3) fL RDW Coeff of Gracie (11.5-14.5) % Plt Count (130-400) K/uL MPV (9.4-12.4) fL Immature Gran % (Auto) % Neut % (Auto) % Lymph % (Auto) % Cameron % (Auto) % Eos % (Auto) % Baso % (Auto) % Neut # (Auto) (1.40-6.50) K/uL Lymph # (Auto) (1.2-3.4) K/uL Cameron # (Auto) (0.11-0.59) K/uL Eos # (Auto) (0-0.50) K/uL Baso # (Auto) (0-0.2) K/uL Immature Gran # (Auto) (0.01-0.20) K/uL Sodium (136-145) mmol/L Potassium (3.5-5.1) mmol/L Chloride (98-107) mmol/L Carbon Dioxide (21-32) mmol/L Anion Gap (3-11) BUN (6-23) mg/dl Creatinine (0.6-1.2) mg/dl Est Cr Clr Drug Dosing ml/min Est GFR ( Amer) ml/min Est GFR (Non-Af Amer) ml/min BUN/Creatinine Ratio (10-20) Glucose (70-99(Fasting)) mg/dl Estimat Average Glucose mg/dl Hemoglobin A1c (4.5-5.6) % Calcium (8.6-10.3) mg/dl Magnesium (1.7-2.4) mg/dl Troponin I High Sens (0-14) pg/ml TSH (0.300-4.500) uIu/ml Urine Color Yellow Urine Appearance Clear (Clear) Urine pH 5.5 (4.5-7.5) Ur Specific [place] 1.018 (1.000-1.030) Urine Protein Negative (Negative) Urine Glucose (UA) Negative (Negative) Urine Ketones Negative (Negative) Urine Blood Negative (Negative) Urine Nitrite Negative (Negative) Urine Bilirubin Negative (Negative) Urine Urobilinogen Negative (Negative) Ur Leukocyte Esterase Negative (Negative) Lyme Disease IgG Ab (Negative) Lyme Disease IgM Ab (Negative) Diagnostic Findings Chest X-Ray 10/15/22 08:01 XR chest 1V portable HISTORY: shortness of breath COMPARISON: Chest 07/23/2021. FINDINGS: Rotated study. No pneumothorax. The cardiac silhouette is enlarged. This may be accentuated by the rotated study. There is progressive interstitial/vascular thickening consistent with mild pulmonary edema. Suspect trace bilateral pleural effusions. No new focal lung consolidations to suggest a pneumonia. IMPRESSION: 1. Rotated study. 2. Progressive cardiomegaly and interstitial/vascular thickening consistent with mild pulmonary edema. ACT 112: Negative or not required by law. Electronically signed by: Addison Washburn M.D. 10/15/2022 8:[address] 10/15/22 09:20 CT chest diagnostic wo con CT DOSE: 502.71 mGy.cm HISTORY: hypoxia, pulm edema TECHNIQUE: Multiaxial CT images of the chest were performed without contrast. A dose lowering technique was utilized adhering to the principles of ALARA. COMPARISON: Chest CT 07/05/2018. FINDINGS: There is respiratory motion artifact. There is right greater the left central bronchial wall thickening. There are small bilateral pleural effusions. No pneumothorax. Patchy groundglass densities within the lung bases favor dependent change/atelectasis. Scattered tree-in-bud nodular opacities have slightly progressed. This is consistent with an acute on chronic bronchiolitis. Mild interlobular septal thickening at the lung bases. Narrowing of the central bronchi is likely due to the expiratory phase of the study. The right basilar focal density has resolved in the interval. There are few punctate calcified granulomas within the right lung. There are old, healed bilateral rib fractures again noted. No acute fractures within the chest. Old compression deformities are seen within the thoracic spine. Limited views of the upper abdomen demonstrate normal liver and spleen. Moderate cardiomegaly again noted. No pericardial effusion. Multinodular thyroid gland, unchanged. Normal esophagus. S evere coronary artery calcifications. Mild calcified plaque within the normal caliber thoracic aorta. Mediastinal and bilateral hilar lymphadenopathy has progressed. For comparative purposes a dominant right paratracheal lymph node measures 17 x 11 mm, previously measuring 10 x 8 mm. IMPRESSION: 1. Moderate cardiomegaly with small bilateral pleural effusions and mild congestive change. This has progressed in the interval. 2. Mild mediastinal and bilateral hilar lymphadenopathy. This is nonspecific but has also progressed compared to the prior study. 3. Bronchial wall thickening with scattered tree-in-bud nodular opacities again noted. This has progressed in the interval. This may represent an acute or chronic infectious bronchiolitis. ACT 112: Negative or not required by law. Electronically signed by: Addison Washburn M.D. 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
[2022-10-16 07:59] LABS: Lyme Ab IgG w/WB Rflx Negative (Negative)
[2022-10-16 08:01] LABS: Lyme Ab IgM w/WB Rflx Negative (Negative)
[2022-10-16] MEDS: CHOLECALCIFEROL 1,000 UNITS 25 MCG TAB PO SCH (08:20)
[2022-10-16] MEDS: METOPROLOL SUCC 25MG EXT REL TAB PO SCH (08:20)
[2022-10-16] MEDS: MONTELUKAST SODIUM 10 MG TABLET PO SCH (08:21)
[2022-10-16] MEDS: PANTOprazole 40 MG TAB PO SCH (08:21)
[2022-10-16] MEDS: PRAVASTATIN SOD 40 MG TAB PO SCH (08:21)
[2022-10-16] MEDS: CYANOCOBALAMIN (B-12) 500 MCG TABLET PO SCH (08:21)
[2022-10-16] MEDS: VENLAFAXINE HCL XR 37.5 MG CAPXR PO SCH (08:21)
[2022-10-16] MEDS: buPROPion SR 150 MG TABCR PO SCH (08:21)
[2022-10-16] MEDS: SENNA 8.6 MG TAB PO SCH ×2 (08:21→21:15)
[2022-10-16] MEDS: GABAPENTIN 100 MG CAP PO SCH ×3 (08:21→21:15)
[2022-10-16] MEDS: CLOPIDOGREL BISULFATE 75 MG TAB PO SCH (08:21)
[2022-10-16] MEDS: FLUTICASONE/VILANTEROL 100/25MCG 14 PUFFS/INHALER INH SCH (08:22)
[2022-10-16 09:48] LABS: Estimated Average Glucose 143 mg/dl; Hemoglobin A1C 6.6 % (4.5-5.6)
[2022-10-16] MEDS: LOSARTAN POTASSIUM 25 MG TAB PO SCH (10:21)
--- NOTE | 2022-10-16 11:03 | Cardiology Consultation ---
Date of Consultation October 16, 2022 Assessment & Plan (1) Acute on chronic systolic (congestive) heart failure: -suspect a significant component of systolic CHF. -would treat with intravenous diuretics. -continue metoprolol succinate and losartan. (2) Coronary artery disease: -s/p LAD DONNY, March 2012. -quiescent on medical management. (3) Ischemic cardiomyopathy: -LVEF now 20-25%. -continue metoprolol succinate and losartan. (4) Hypertension: -adequate control on current regimen. (5) Dyslipidemia: -continue pravastatin. History of Present Illness Attending Physician: Bishnu Tobias MD History of Present Illness Mrs. Rubio is an 86-year-old female admitted yesterday with shortness of breath and hypoxia. This consultation was ordered to assist in her cardiac management. Of note, patient typically follows with Dr. Street in the outpatient setting. The patient was sent to the emergency room from her residence at [facility] because of complaints of shortness of breath and oxygen saturations in the 80s. History is difficult to obtain due to the patient's significant dementia. She does carry history of coronary artery disease having suffered an anteroapical OR back in March 2012. A DONNY was placed in the LAD by Dr. Street. She had a resultant ischemic cardiomyopathy with ejection fraction of 35%. She also experience postoperative atrial fibrillation which required anticoagulation. That medication was eventually discontinued. There has been no recurrence of her atrial fibrillation according to Dr. Street's office notes. Currently, the patient is resting comfortably in bed and without complaints. Past medical and surgical history 1. Coronary artery disease-see above 2. LAD DONNY-March 2012 3. Ischemic cardiomyopathy-35% 4. Chronic systolic CHF 5. Hypertension 6. Hypercholesterolemia 7. COPD 8. Bronchiectasis 9. GERD 10. Esophageal dysmotility 11. Multiple sclerosis 12. Osteoporosis 13. DJD 14. Generalized peripheral neuropathy 15. Goiter 16. Dementia 17. Tubal ligation Social history Resident at [facility] No tobacco alcohol Family history Father at 46 from an OR Mother at 77 from an OR Review of systems A 10 point review of systems was undertaken and negative except for that described above. Allergies Allergy/AdvReac Type Severity Reaction Status Date / Time alendronate sodium Allergy Unknown unknown Verified 10/18/21 11:31 aspirin Allergy Unknown Unknown Verified 10/18/21 11:31 metformin Allergy Unknown Verified 10/18/21 11:31 mirtazapine Allergy Unknown Unknown Verified 10/18/21 11:31 sertraline [From Zoloft] Allergy Unknown Unknown Verified 10/18/21 11:31 Home Medications Medication Instructions Recorded Confirmed Type cholecalciferol (vitamin D3) 50 2,000 unit PO DAILY 01/08/18 10/15/22 History mcg (2,000 unit) capsule clopidogrel 75 mg tablet (Plavix) 75 mg PO DAILY 01/08/18 10/15/22 History montelukast 10 mg tablet 10 mg PO DAILY 01/08/18 10/15/22 History (Singulair) pantoprazole 40 mg tablet,delayed 40 mg PO QAM 01/08/18 10/15/22 History release (Protonix) acetaminophen 325 mg tablet 650 mg PO Q4H PRN pain/fever 01/22/18 10/15/22 History (Tylenol) albuterol sulfate 90 mcg/actuation 2 puff inhalation Q6H PRN Cough 01/22/18 10/15/22 History breath activated powder inhaler bisacodyl 10 mg rectal suppository 10 mg TN Q72H PRN Constipation 01/22/18 10/15/22 History (Dulcolax (bisacodyl)) coQ10 (ubiquinol) 200 mg capsule 200 mg PO DAILY 01/22/18 10/15/22 History fluticasone furoate 100 1 inh inhalation QAM 01/22/18 10/15/22 History mcg-vilanterol 25 mcg/dose inhalation powder (Breo Ellipta) losartan 25 mg tablet (Cozaar) 25 mg PO DAILY 01/22/18 10/15/22 History magnesium hydroxide 400 mg/5 mL 30 ml PO Q OTHER DAY PRN 01/22/18 10/15/22 History oral suspension (Milk of Magnesia) Constipation metoprolol succinate 50 mg 75 mg PO DAILY 01/22/18 10/15/22 History tablet,extended release 24 hr nystatin 100,000 unit/gram topical See Rx Instructions .Route 01/22/18 10/15/22 History cream .COMPLEX PRN Rash pravastatin 40 mg tablet 40 mg PO DAILY 01/22/18 10/15/22 History bupropion HCl 150 mg tablet,12 hr 150 mg PO QAM 09/24/18 10/15/22 History sustained-release (Wellbutrin SR) nitroglycerin 0.4 mg sublingual 0.4 mg sublingual Q5M PRN Chest 10/17/18 10/15/22 History tablet (Nitrostat) Pain furosemide 20 mg tablet 20 mg PO DAILY 08/16/19 10/15/22 History melatonin 5 mg tablet 5 mg PO HS 08/16/19 10/15/22 History sennosides 8.6 mg tablet (Senokot) 8.6 mg PO BID 08/16/19 10/15/22 History albuterol sulfate 2.5 mg/3 mL 2.5 mg inhalation Q4H PRN Wheezing 09/16/19 10/15/22 History (0.083 %) solution for nebulization ondansetron HCl 4 mg tablet 4 mg PO TID PRN Nausea 09/16/19 10/15/22 History (Zofran) polyethylene glycol 3350 17 17 gm PO 3XWK 09/16/19 10/15/22 History gram/dose oral powder (Miralax) gabapentin 100 mg capsule 100 mg PO TID 09/17/21 10/15/22 History trazodone 50 mg tablet 25 mg PO HS 09/17/21 10/15/22 History venlafaxine 37.5 mg 37.5 mg PO QAM 09/17/21 10/15/22 History capsule,extended release 24 hr (Effexor XR) acetaminophen 325 mg tablet 650 mg PO HS pain 10/15/22 10/15/22 History calcium carbonate 500 mg calcium 500 mg PO QID PRN Heartburn 10/15/22 10/15/22 History (1,250 mg) chewable tablet cyanocobalamin (vitamin B-12) 1,000 mcg PO DAILY 10/15/22 10/15/22 History 1,000 mcg tablet ferrous sulfate 325 mg (65 mg 325 mg PO DAILY 10/15/22 10/15/22 History iron) tablet ipratropium 0.5 mg-albuterol 3 mg 3 ml inhalation Q4H PRN Wheezing 10/15/22 10/15/22 History (2.5 mg base)/3 mL nebulization soln menthol 4 % topical gel (Biofreeze 1 applic topical Q4H PRN Pain 10/15/22 10/15/22 History (menthol)) potassium chloride 10 mEq 10 meq PO DAILY 10/15/22 10/15/22 History tablet,extended release(part/cryst) Patient History Medical History Asthma Bronchiectasis Coronary artery disease Dyslipidemia Esophageal dysmotility GERD (gastroesophageal reflux disease) Hypertension Ischemic cardiomyopathy Moderate persistent asthma Multiple sclerosis Myocardial infarct, old Osteoporosis Paroxysmal atrial fibrillation Peripheral neuropathy Toxic multinodul goiter Surgical History History of arthroscopic surgery of shoulder History of cardiac catheterization History of heart artery stent History of tubal ligation Family History Father Myocardial infarction at age 46 from an OR Mother , age 77 from OR Myocardial infarction Social History Smoking Status: Former smoker Second Hand Exposure: No; Do You Dip or Chew Tobacco: No; Hx Alcohol Use: No Hx Substance Use: No Preferred Language: Chinese Communication Ability: Effective 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 HEENT exam is negative. Neck is supple with full carotid upstrokes. Jugular venous pressure is flat at 90. There is no thyromegaly. Cardiovascular exam reveals a regular rhythm with normal S1-S2. Heart sounds are distant. No obvious murmurs. Lungs are clear without rales, rhonchi, or wheezes. Abdomen is soft and nontender without bruits. Extremities reveal intact radial artery pulses bilaterally. There is no peripheral edema. Results & Data Vital Signs (Past 12 Hours) Vital Signs Temp Pulse Pulse Resp BP Pulse Ox O2 Del Method 10/16/22 07:18 36.6 C 56 L 16 132/59 L 97 Nasal Cannula 10/16/22 07:14 56 L 16 97 Nasal Cannula 10/16/22 03:28 36.6 C 61 20 112/49 L 96 Room Air 10/16/22 03:26 61 18 96 Nasal Cannula 10/15/22 23:36 36.6 C 61 18 119/68 99 Room Air 10/15/22 23:31 65 O2 Flow Rate 10/16/22 07:18 2.0 10/16/22 07:14 2 10/16/22 03:28 10/16/22 03:26 2 10/15/22 23:36 10/15/22 23:31 Laboratory Results CBC notes hemoglobin 8.7, crit 29.5, white count 7.3, platelet count 194447. Electrolytes note a sodium 137, potassium 3.8, chloride 99, bicarb 33, BUN 27, creatinine 1.41, and glucose of 118. Initial high sensitivity troponin was 26.1 with a follow-up value of 23.4. BNP is elevated 1174. TSH is normal at 2.25. Diagnostic Findings Echocardiogram noted severe left ventricular dysfunction with ejection fraction 20-25%. There was global hypokinesis along with akinesis of the apex. No thrombus. Mild mitral regurgitation. Compared with the study performed in July 2017, ejection fraction now severely depressed. EKG notes sinus rhythm first- degree AV block, left axis deviation, and poor R-wave progression across the anterior precordium. CT scan of chest notes cardiomegaly, pulmonary edema, and bilateral pleural effusions. Chest x-ray is rotated but notes cardiomegaly and interstitial edema. PG Care Time/CCT Total # of Minutes Spent Total Time Spent with Patient: Total time spent is greater than 50% in coordination of care (as documented) at patient's floor/unit and/or counseling patient: Coding Level of Care Code 37066 INT INP/OBS CARE 3/75MIN Diagnoses Acute on chronic systolic (congestive) heart failure I50.23 Coronary artery disease I25.10 Ischemic cardiomyopathy I25.5 Hypertension I10 Dyslipidemia E78.5
[2022-10-16] MEDS ORDERED: IRON SUCROSE 200 MG in 0.9 % SODIUM CHLORIDE 100 ML IV ONE (14:00)
[2022-10-16] MEDS ORDERED: FUROSEMIDE 40 MG/4 ML VIAL IV SCH (17:00)
--- NOTE | 2022-10-16 17:35 | XRay Report ---
XR chest 1V portable CLINICAL HISTORY: f/u congestion TECHNIQUE: Single frontal radiograph of the chest was obtained. Comparison: Comparison is made to chest radiograph 10/15/2022 FINDINGS: No lines and tubes are seen. Cardiomegaly is noted. There is prominence and cephalization of the vasc ulature with Isabelle B lines seen. No evidence of pleural effusion or pneumothorax. IMPRESSION: Cardiomegaly and moderate pulmonary edema. This represents an increased from prior exam. ACT 112: Negative or not required by law. Electronically signed by: Nicholas Wiggins M.D. 10/16/2022 5:33 PM
[2022-10-16] MEDS: MELATONIN 3 MG TAB PO SCH (21:15)
[2022-10-16] MEDS: traZODone HCL 50 MG TAB PO SCH (21:16)
[2022-10-16] MEDS: POTASSIUM CHLORIDE 20 MEQ/15 ML UDC PO SCH (21:16)
[2022-10-17] MEDS: PIPERACILLIN/TAZOBACTAM 4.5 GM in DEXTROSE 5% 100 ML IV SCH ×3 (01:37→17:50)
[2022-10-17] MEDS: ALBUT/IPRATROP 3MG/0.5MG NEB 3 ML VIAL NEB SCH ×2 (04:26→06:50)
[2022-10-17 06:51] LABS: HCO3 VBG 36 mmol/L; Oxygen Saturation VBG 66.1 %; PCO2 VBG 57 mmHg (38-50); PO2 VBG 39 mmHg; pH VBG 7.41 (7.36-7.41)
[2022-10-17 06:56] LABS: Hematocrit (blood only) 31.6 % (37.0-47.0); Hemoglobin 9.3 g/dl (12.0-16.0); Mean Corpuscular Hemoglobin 23.4 pg (25.0-34.0); Mean Corpuscular Hgb Conc 29.4 g/dL (32.0-36.0); Mean Corpuscular Volume 79.4 fL (80.0-100.0); Mean Platelet Volume 9.7 fL (9.4-12.4); Platelet Count 239 K/uL (130-400); RDW Coefficient of Variation 18.2 % (11.5-14.5); RDW Standard Deviation 48.8 fL (36.4-46.3); Red Blood Count 3.98 M/uL (4.20-5.40); White Blood Count 7.38 K/ul (4.8-10.8)
[2022-10-17 07:15] LABS: BUN Creatinine Ratio 16.3 (10-20); Calcium 9.2 mg/dl (8.6-10.3); Creatinine Clr Calc Pharmacy 33.2 ml/min; Est GFR (African American) 41.4 ml/min; Est GFR (Non-African American) 35.7 ml/min; Magnesium 2.1 mg/dl (1.7-2.4); Potassium 3.9 mmol/L (3.5-5.1)
--- NOTE | 2022-10-17 07:32 | Hospitalist Progress Note ---
Date of Service October 17, 2022 Assessment & Plan (1) Acute on chronic systolic (congestive) heart failure: Plan: Suspected as main culprit for admission w/ SOB/hypoxia suspect combination of CHF (prior EF 30-40%) in setting of recently reduced diuretics, possible infectious process/PNA. Reported nonproductive cough (reported chronic cough, hx aspiration/esophageal dysmotility). On admission, BNP elevated to 1174 . BNP day prior by Ced Mayen 1938 (was 1405 in September) CXR w/ congestion, hypoxia w/ SpO2 to 85% at halfway and 87% on arrival improved with 2L NC CT chest noncon given renal function for further eval -- small b/l effusions and mild congestive change progressed in interval, prior known low EF to 30% REPEAT ECHO NOW WITH SEVERELY REDUCED EF, 20-25%. Compared to 2018, LV dysfunction now SEVERE Lasix 40mg IV x 1 on admission Increased lasix 40mg IV to BID evening 10/16 given worsening congestion on exam and suspect needing higher dose diuretics given further reduced EF * Additional 3L overnight, net negative -2L 10/16/10/17. * Weight currently 80.1kg (83kg on admit and appears baseline closer to mid/low 70s) Kidney function remains stable/improved 1.35 with increased diuretics and will continue Lasix 40mg IV BID. Losartan resumed 10/16. Diamox x 1 given CO2/VBG, consider BiPAP Cards consulted/CHF clinic in follow up --Discussed w/ CHF clinic provider and will discuss w/ family about starting Entresto given EF 20-25% Will need to have her losartan stopped prior to initiating Continue to monitor weights/I&O ABx as below for possible infectious etiology and will plan to complete course 5-7 days Monitor labs in AM (2) Shortness of breath: Plan: likely multifactorial, CHF w/ worsening EF as above, also w/ possible infectious bronchiolitis in setting patient w/ hx FIDE, chronic aspiration/esophageal dysmotility COVID/biofire negative, procal <0.05 Hx FIDE, completed 12mo of triple therapy per Dr Suarez prior notes (literature recs 18mo, unclear if would be able to tolerate regimen further) CT chest Mild mediastinal and bilateral hilar lymphadenopathy. This is nonspecific but has also progressed compared to the prior study. Bronchial wall thickening with scattered tree-in-bud nodular opacities again noted. This has progressed in the interval. This may represent an acute or chronic infectious bronchiolitis. Discussed w/ pulm provider, possible debris in esophagus, noting b/l effusions L>R, possible infectious process and agreed with empiric antibiotics (on Zosyn/Doxy) and pulmonary toilet as well as diuretics. Lasix as above for congestive changes/EF Duonebs Q4H CHRISTO -- scheduled --> transitioned to PRN for today On 1L NC -- titrate as able Diamox for CO2 retention as suspect unable to tolerate bipap and will monitor If able to get off O2 today, consider overnight pulse ox study, ?underlying JAMA w/ her diastolic dysfunction on ECHO (3) Acute respiratory failure: Plan: of note, did have PET scan in past, no FDG uptake in mediastinum, noting uptake in thyroid (family unaware of finding initially, however did discuss finding last evening) * Discussed prior PET scan w/ negative uptake to lungs/mediastinum, however they were unaware of thyroid uptake. Discussed will plan to check TSH but discussed if they would want to pursue this. * Daughter stated patient declining, agreed to abx/diuretics, making comfortable but doesn't not feel they would want to be aggressive about pursuing any kind of biopsy/treatment for this. Discussed to discuss w/ other family members and we will be in continued contact throughout the weekend. as above, diuretics/abx/pulmonary toilet continue abx to cover for aspiration pneumonia, then stop Speech consulted given chronic aspiration/esophageal issues--> video swallow for this morning. No issues, suspected esophageal issue. gravies/sauces to be added to tray Aspiration precautions in place O2 as needed to maintain sats -- titrate as able (4) CKD (chronic kidney disease) stage 3, GFR 30-59 ml/min: Plan: kdiney function stable/improving with diuretics/management of CHF as above Avoid nephrotoxins as able/renal dose meds as appropriate BMP in AM (5) Hypoxia: Plan: combination volume overload, possible pna. supplemental O2 to maintain sats tx as above (6) Anemia: Plan: Also w/ recently diagnosed anemia per daughter however she notes they checked her stool for blood and this was negative. Hgb 8.3 on admission with baseline in 8-10s over past couple months (first drop 10/2021) Checked iron panel given MCV 78.8 on labs (appears has dropping between June and September of this year) Iron panel w/ RUBEN Iron 19/trans % sat 5, unsat IBC 380 Venofer 300mg IV on admission, repeat dose 10/16 for 200mg given hypotension w/ initial dosing. On protonix once daily, given no blood in prior stool reported will plan to continue once daily. TSH wnl Hgb stable/improved on repeat from 8.3--> 8.7--> 9.3 w/ Venofer and diuretics Will repeat 200mg IV for today CBC in AM (7) Confusion: Plan: ?combination infection/volume overload no worsening confusion, suspect from volume overloaded state/hypoxia at halfway UA w/o evidence for infection. No fever/leukocytosis As above, thyroid nodules/uptake on prior PET --> family declined further eval for now, focus on diuretics/abx for now (8) Chronic pulmonary aspiration: Plan: noting -- speech eval as above, suspected esophageal dysmotility, diet modified and will continue precautions (9) Esophageal dysmotility: Plan: per prior speech note 2018, patient denied issues but suspect chronic (however stable as has been years since prior eval) aspiration precautions, speech consult as above (10) Hypertension: Plan: BP stable but borderline on admission, suspect from volume overload Lasix as above, cozaar resumed given reduced EF/CHF and renal function stable BPs IMPROVING since increased diuretics and will monitor Planning to stop losartan and place on Entresto given her reduced EF--> discussing timing w/ CHF clinic provider Continues on metoprolol 75mg daily Monitor, currently 149/74 (11) Ischemic cardiomyopathy: Plan: Presented 03/30/12 with an acute anterior MA (peak troponin 99) - subtotal LAD occlusion and no other significant CAD. Cath by Dr Street Prior ECHO w/ EF 30-35%, anteroapical apical and septal akinesis without evidence of LV thrombus,and mild TR at that time and was d/c on ASA/Plavix, Xarelto, amiodarone, lisinopril, metoprolol and spironolactone. Subsequent dc of AC and antiarrhythmic therapy given no reoccurrence of atrial fibrillation. ECHO 2018 w/ LV 35%, mild LVH, grade I diastolic dysfunction. Repeat ECHO as above, worsened EF (12) Coronary artery disease: Plan: followed by Dr Street No CP reported, trop trended down on repeat, likely from demand ischemia from volume overload ECHO as above, cards consulted EKG w/ CP (13) Pulmonary nodule: Plan: noted, no uptake on prior PET scan noted (note did have thyroid uptake -- will need further eval if family decides they want to but declined in days past). Patient is DNR (14) H/O allergic bronchopulmonary aspergillosis: Plan: tx x 12 mo noted, discussed w/ pulm. no formal consult at present (15) Antiplatelet or antithrombotic long-term use: Plan: only remains on plavix, no recurrance of afib post MA (16) Fall: Plan: reported by daughter, no LOC/trauma, no findings on exam for head trauma ?from combination from above (17) Dyslipidemia: Plan: continue statin (18) Dementia: Plan: at baseline reported (19) Paroxysmal atrial fibrillation: Plan: no recurrence per Dr Street post MA, not on anticoagulation any longer, just plavix. monitor on telemetry keep K/mag replete (20) Elevated troponin: Plan: Troponin elevation Trop elevated 26.1 but suspect 2nd to myocardial demand ischemia from volume overload state. downtrended on repeat, cancelled further draws, no CP reported EKG w/ CP. Hx afib not on AC. EKG w/ SR, 1st degree AV block. LAD. LVH. PVC no longer present compared to 2018 ECHO as above Plan DVT Proph: SCDS for now given anemia, unclear cause. Continue Lasix 40mg IV BID through today, possible switch to PO BID tomorrow if starting entresto and will need losartan discontinued -- will place on hold for AM in case of start Monitor weights/I&O Continue abx for possible infectious etiology, monitor CXR daily [facility] Admission and Anticipated Discharge Date Admission Date: October 15, 2022 Supervising Physician Co-Signing Physician Notes PA Supervision Note: I did not personally see or examine the patient. I verified all crocker points and agree with BEN Mcgill with the following exceptions and/or additions: holding evening IV diuresis due to BP on softer side, continue to monitor daily standing weights and I/Os. Lopressor 5mg IV q4h prn HR >120 if BP can tolerate and HR not returning to normal with digoxin IV dose. PO dig also ordered. Subjective Evaluated this morning, up in chair, appears improved. States breathing about the same but that medications must be working because her cough is improving. No chest pain. No fever/chills, abdominal pain, nausea. Appetite still poor. LE edema improving. Discussed CHF clinic consult and management of diuretics but potentially switching to PO BID for tomorrow if improvement/addition of other medications. Physical Exam Physical Exam: General: chronicall ill appearing female sitting up in chair, appears improved, NAD HEENT: head normocephalic, atraumatic, mmm, trachea midline, +JVD (decreased) Resp: diminished in the bases decreased wheezing, no crackles/rales, on 1L NC SpO2 95% CV: regular rate/rhythm, +faint murmur, ?S3, bilateral pitting edema SIGNIFICANTLY improved, 1+ b/l, calves nontender GI+BS, soft/NT ; clear yellow urine draining MSK/Neuro: generalized weakness, no facial droop/slurred speech, follows commands as able Psych: alert to person, place on occassion, dementia at baseline but cooperative with exam, no agitation Skin: b/l dry skin to legs, flaking, slightly reddened spots but no obvious cellulitis/open lesions, nontender Results & Data Results & Data Vital Signs (Past 12 Hours) Vital Signs Temp Pulse Pulse Resp BP Pulse Ox O2 Del Method 10/17/22 06:52 64 18 94 Nasal Cannula 10/17/22 03:44 36.6 C 67 18 118/51 L 95 Nasal Cannula 10/16/22 23:42 36.9 C 75 18 109/50 L 91 Nasal Cannula 10/16/22 23:15 68 10/16/22 20:56 Nasal Cannula 10/16/22 19:48 36.5 C 72 18 138/66 94 Nasal Cannula O2 Flow Rate 10/17/22 06:52 1 10/17/22 03:44 1 10/16/22 23:42 1 10/16/22 23:15 10/16/22 20:56 1 10/16/22 19:48 2 Laboratory Results 10/17/22 10/17/22 10/17/22 Range/Units 06:40 06:40 06:40 WBC 7.38 (4.8-10.8) K/ul RBC 3.98 L (4.20-5.40) M/uL Hgb 9.3 L (12.0-16.0) g/dl Hct 31.6 L (37.0-47.0) % MCV 79.4 L (80.0-100.0) fL MCH 23.4 L (25.0-34.0) pg MCHC 29.4 L (32.0-36.0) g/dL RDW Std Deviation 48.8 H (36.4-46.3) fL RDW Coeff of Gracie 18.2 H (11.5-14.5) % Plt Count 239 (130-400) K/uL MPV 9.7 (9.4-12.4) fL VBG pH 7.41 (7.36-7.41) VBG pCO2 57 H (38-50) mmHg VBG pO2 39 mmHg VBG HCO3 36 mmol/L VBG O2 Saturation 66.1 % VBG Base Excess 10.0 mEq/L Sodium 139 (136-145) mmol/L Potassium 3.9 (3.5-5.1) mmol/L Chloride 98 (98-107) mmol/L Carbon Dioxide 34 H (21-32) mmol/L Anion Gap 7 (3-11) BUN 22 (6-23) mg/dl Creatinine 1.35 H (0.6-1.2) mg/dl Est Cr Clr Drug Dosing 33.2 ml/min Est GFR ( Amer) 41.4 ml/min Est GFR (Non-Af Amer) 35.7 ml/min BUN/Creatinine Ratio 16.3 (10-20) Glucose 107 H (70-99(Fasting)) mg/dl Calcium 9.2 (8.6-10.3) mg/dl Magnesium 2.1 (1.7-2.4) mg/dl Diagnostic Findings Chest X-Ray 10/16/22 06:00 XR chest 1V portable CLINICAL HISTORY: f/u congestion TECHNIQUE: Single frontal radiograph of the chest was obtained. Comparison: Comparison is made to chest radiograph 10/15/2022 FINDINGS: No lines and tubes are seen. Cardiomegaly is noted. There is prominence and cephalization of the vasculature with Isabelle B lines seen. No evidence of pleural effusion or pneumothorax. IMPRESSION: Cardiomegaly and moderate pulmonary edema. This represents an increased from prior exam. ACT 112: Negative or not required by law. Electronically signed by: Nicholas Wiggins M.D. 10/16/2022 5:33 PM Chest X-Ray 10/17/22 06:00 XR chest 1V portable CLINICAL HISTORY: follow up congestion TECHNIQUE: Single frontal radiograph of the chest was obtained. Comparison: Comparison is made to chest radiograph 10/16/2022 FINDINGS: No lines and tubes are seen. Cardiomegaly is noted. The aortic arch is calcified. Prominence and cephalization of the vasculature is seen. Bronchial wall thickening is again seen. Small bilateral pleural effusions are seen. IMPRESSION: 1. Cardiomegaly and mild pulmonary edema. Small bilateral pleural effusions. These findings are stable. 2. Bronchial wall thickening is again seen. ACT 112: Negative or not required by law. Electronically signed by: Nicholas Wiggins M.D. 10/17/2022 8:20 AM PG Care Time/CCT Total # of Minutes Spent Total Time Spent with Patient: Total time spent is greater than 50% in coordination of care (as documented) at patient's floor/unit and/or counseling patient: Coding Level of Care Code 92669 SUB INP/OBS CARE 3/50MIN Diagnoses Acute on chronic systolic (congestive) heart failure I50.23 Shortness of breath R06.02 Acute respiratory failure J96.00 CKD (chronic kidney disease) stage 3, GFR 30-59 ml/min N18.30 Hypoxia R09.02 Anemia D64.9 Confusion R41.0 Chronic pulmonary aspiration T17.908A Esophageal dysmotility K22.4 Hypertension I10 Ischemic cardiomyopathy I25.5 Coronary artery disease I25.10 Pulmonary nodule R91.1 H/O allergic bronchopulmonary aspergillosis Z86.19 Antiplatelet or antithrombotic long-term use Z79.02 Fall W19.XXXA Dyslipidemia E78.5 Dementia F03.90 Paroxysmal atrial fibrillation I48.0 Elevated troponin R77.8
--- NOTE | 2022-10-17 08:21 | XRay Report ---
XR chest 1V portable CLINICAL HISTORY: follow up congestion TECHNIQUE: Single frontal radiograph of the chest was obtained. Comparison: Comparison is made to chest radiograph 10/16/2022 FINDINGS: No lines and tubes are seen. Cardiomegaly is noted. The aortic arch is calcified. Prominence and ceph alization of the vasculature is seen. Bronchial wall thickening is again seen. Small bilateral pleura l effusions are seen. IMPRESSION: 1. Cardiomegaly and mild pulmonary edema. Small bilateral pleural effusions. These findings are stab le. 2. Bronchial wall thickening is again seen. ACT 112: Negative or not required by law. Electronically signed by: Nicholas Wiggins M.D. 10/17/2022 8:20 AM
[2022-10-17] MEDS: SENNA 8.6 MG TAB PO SCH ×2 (08:57→22:40)
[2022-10-17] MEDS: buPROPion SR 150 MG TABCR PO SCH (08:57)
[2022-10-17] MEDS: CYANOCOBALAMIN (B-12) 500 MCG TABLET PO SCH (08:57)
[2022-10-17] MEDS: CHOLECALCIFEROL 1,000 UNITS 25 MCG TAB PO SCH (08:57)
[2022-10-17] MEDS: CLOPIDOGREL BISULFATE 75 MG TAB PO SCH (08:58)
[2022-10-17] MEDS: FLUTICASONE/VILANTEROL 100/25MCG 14 PUFFS/INHALER INH SCH (08:58)
[2022-10-17] MEDS: VENLAFAXINE HCL XR 37.5 MG CAPXR PO SCH (08:58)
[2022-10-17] MEDS: LOSARTAN POTASSIUM 25 MG TAB PO SCH (08:59)
[2022-10-17] MEDS: POTASSIUM CHLORIDE 20 MEQ/15 ML UDC PO SCH ×2 (08:59→22:38)
[2022-10-17] MEDS: PANTOprazole 40 MG TAB PO SCH (09:00)
[2022-10-17] MEDS: GABAPENTIN 100 MG CAP PO SCH ×3 (09:00→22:41)
[2022-10-17] MEDS ORDERED: FUROSEMIDE 40 MG/4 ML VIAL IV SCH ×2 (09:00)
[2022-10-17] MEDS: METOPROLOL SUCC 25MG EXT REL TAB PO SCH (09:00)
[2022-10-17] MEDS: MONTELUKAST SODIUM 10 MG TABLET PO SCH (09:00)
[2022-10-17] MEDS: PRAVASTATIN SOD 40 MG TAB PO SCH (09:01)
[2022-10-17] MEDS: acetaZOLAMIDE 250 MG TAB PO ONE ×2 (09:07→09:40)
[2022-10-17] MEDS ORDERED: ALBUT/IPRATROP 3MG/0.5MG NEB 3 ML VIAL NEB PRN (09:50)
[2022-10-17] MEDS ORDERED: IRON SUCROSE 200 MG in 0.9 % SODIUM CHLORIDE 100 ML IV ONE (12:00)
--- NOTE | 2022-10-17 12:00 | Fluoroscopy Report ---
FL video swallow CLINICAL HISTORY: r/o aspiration TECHNIQUE: Video fluoroscopy of the pharyngeal region was performed as barium mixtures of varying con sistencies were administered to the patient by the speech pathologist. A formal esophagram was not pe rformed. Comparison: None available at the time of this dictation. FINDINGS: Total fluoroscopy time: 1.15 minutes. Radiation dose: 6.06 mGy. The patient swallowed the different barium consistencies without difficulty. There was no laryngeal v estibular penetration or tom tracheal aspiration. Pooling of barium was noted in the bilateral piri form sinuses and valleculae. IMPRESSION: No evidence of aspiration. Please see the speech pathology report for further details. ACT 112: Negative or not required by law. Electronically signed by: Nicholas Wiggins M.D. 10/17/2022 11:59 AM
--- NOTE | 2022-10-17 12:03 | Communication Note ---
Date of Service: October 17, 2022 Alerted of patient in afib this afternoon rates to 130s, EKG to be obtained stat. No CP/SOB reported, up in chair eating lunch. EKG obtained, review by Dr Thurman, felt frequent PACs vs MAT BP borderline and will hold off IV lopressor for now Continue to monitor on telemetry Appreciate cards assistance Will plan to hold evening lasix for now/monitor BPs unless otherwise recommended by cardiology Heparin SQ for DVT prophylaxis --> Discussed w/ Dr Thurman given borderline BP 99/63, in/out of afib and rec for Digoxin 0.25mcg digoxin IV x 1 now, repeat in 4 hours if needed and plan to start 0.125mcg PO daily in AM. w/ hx falls/severe dementia, ideally would not like to AC individual. WIll need continued discussions.
[2022-10-17] MEDS: METOPROLOL TARTRATE 1 MG/ML VIAL IV STA ×2 (12:07→13:21)
[2022-10-17] MEDS ORDERED: HEPARIN SOD 5,000 UNIT/0.5 ML VIAL SQ SCH (12:30)
[2022-10-17] MEDS: DOXYCYCLINE HYCLATE 100 MG in DEXTROSE 5% 100 ML IV SCH (13:28)
[2022-10-17] MEDS ORDERED: DIGOXIN 250 MCG in SYRINGE 9 ML IV ONE ×2 (13:45→18:05)
[2022-10-17] MEDS: HEPARIN SOD 5,000 UNIT/0.5 ML VIAL SQ SCH ×2 (13:57→22:38)
--- NOTE | 2022-10-17 14:23 | Electrocardiogram Report ---
Test Reason : Blood Pressure : / mmHG Vent. Rate : 118 BPM Atrial Rate : 288 BPM P-R Int : 000 ms QRS Dur : 100 ms QT Int : 378 ms P-R-T Axes : 000 -55 085 degrees QTc Int : 529 ms Probable Sinus tachycardia with frequent Premature atrial complexes Left axis deviation Moderate voltage criteria for LVH, may be normal variant Prolonged QT Abnormal ECG When compared with ECG of 15-OCT-2022 07:53, Vent. rate has increased BY 54 BPM Confirmed by Estrada Thurman ([id number]) on 10/17/2022 2:23:21 PM Referred By: Ced Mayen Confirmed By:Estrada Thurman
[2022-10-17] MEDS ORDERED: METOPROLOL TARTRATE 1 MG/ML VIAL IV PRN (17:23)
[2022-10-17] MEDS: traZODone HCL 50 MG TAB PO SCH (22:39)
[2022-10-17] MEDS: MELATONIN 3 MG TAB PO SCH (22:40)
[2022-10-18] MEDS: PIPERACILLIN/TAZOBACTAM 4.5 GM in DEXTROSE 5% 100 ML IV SCH ×3 (01:43→18:18)
[2022-10-18 06:41] LABS: Hematocrit (blood only) 32.8 % (37.0-47.0); Hemoglobin 9.6 g/dl (12.0-16.0); Mean Corpuscular Hemoglobin 23.1 pg (25.0-34.0); Mean Corpuscular Hgb Conc 29.3 g/dL (32.0-36.0); Mean Platelet Volume 9.7 fL (9.4-12.4); Platelet Count 252 K/uL (130-400); RDW Coefficient of Variation 18.7 % (11.5-14.5); RDW Standard Deviation 49.1 fL (36.4-46.3); Red Blood Count 4.15 M/uL (4.20-5.40)
[2022-10-18 06:57] LABS: BUN Creatinine Ratio 17.2 (10-20); Calcium 9.4 mg/dl (8.6-10.3); Creatinine Clr Calc Pharmacy 25.6 ml/min; Est GFR (African American) 30.5 ml/min; Est GFR (Non-African American) 26.3 ml/min; Magnesium 2.2 mg/dl (1.7-2.4); Potassium 4.2 mmol/L (3.5-5.1)
--- NOTE | 2022-10-18 07:20 | XRay Report ---
XR chest 1V portable HISTORY: 86 years-old Female follow up CHF acute shortness of breath COMPARISON: 10/17/2022 TECHNIQUE: AP view of the chest FINDINGS: Cardiac silhouette is enlarged. No pneumothorax, or lobar airspace consolidation. Pulmonary vascular congestion again noted. Degenerative changes of the shoulders and spine. Trace pleural effusions. Kika gical anchors of the right humeral head. Degenerative changes of the shoulders and spine. IMPRESSION: 1. Cardiomegaly with pulmonary vascular congestion. 2. Trace pleural effusions. ACT 112: Negative or not required by law. The above report was generated using voice recognition software. It may contain grammatical, syntax o r spelling errors. Electronically signed by: Filippo Rollins M.D. 10/18/2022 7:18 AM
--- NOTE | 2022-10-18 07:52 | Hospitalist Progress Note ---
Date of Service October 18, 2022 Assessment & Plan (1) Acute on chronic systolic (congestive) heart failure: Plan: Suspected as main culprit for admission w/ SOB/hypoxia, but also with new afib/rvr yesterday afternoon (10/17) and could be going in/out elevated HR as wel l as some appeared as MAT Hx CHF (prior EF 30-40%) in setting of recently reduced diuretics, possible infectious process/PNA. Reported nonproductive cough (reported chronic cough, hx aspiration/esophageal dysmotility). BNP elevated to 1174 (day prior from [facility] labs at 1939) CXR w/ congestion, hypoxia w/ SpO2 to 85% at [facility] and 87% on arrival improved with 2L NC CT chest noncon given renal function for further eval w/ small b/l effusions and mild congestive change progressed in interval Repeat ECHO now with SEVERELY REDUCED EF, 20-25% Lasix 40mg IV x 1 on admission Increased lasix 40mg IV to BID evening 10/16 given worsening congestion on exam and diamox x1 w/ titration to RA/improvement on exam Afternoon 10/17 , went into afib/RVR and became hypotensive (asymptomatic) Given IV digoxin x 2 doses 10/17, appreciate cardiology assistance. Cr up to 1.74 this morning Holding further lasix at present 10/18 Flipped into sinus this morning but low as 32, then back to afib after about a minute Discussed w/ Dr Thurman and suspect patient possibly going in/out elevated HR leading to her recently further reduced EF, not great candidate for anticoagulation given dementia/falls Given renal function/blood pressures, decision to convert SQ heparin to Heparin gtt and start amiodarone bolus/gtt to hopefully convert back to NSR and maintain sinus rhythm * I did discuss w/ daughter Jett to further discuss w/ her siblings about consideration for anticoagulation if wanted but discussed with cardiology who recommended against in setting of dementia and falls and they would have to accept risk of fall/bleeding if we were to initiate Losartan resumed, will continue to hold further lasix given renal function Is net negative 5.1L, weight 79.2kg at present (93kg on admission) and on room air (noting +JVD, 1+ b/l edema today) to prevent further reduction in BP/worsening renal function for now If rates improved tomorrow/back to sinus and BP improved could consider resuming PO lasix BID, ?vs consideration to start entresto if BPs allow given EF 20-25% Continue to monitor weights/I&O Will need CHF f/u ABx as below for possible infectious etiology and will plan to complete course 5-7 days Monitor labs in AM (2) Atrial fibrillation: Plan: flipped into afib/rvr 10/17 rates up to 130/140s discussed w/ cardiology given BP, Digoxin 0.25mcg IV, repeated in 4 hrs and started PO 0.125mcg daily for 10/18 -- HOLDING FURTHER DIGOXIN Discussed w/ Dr Thurman given clinical picture and while bradycardic to 30s this morning, amio could potentially make this worse (did discuss w/ daughter Jett as well), but given dementia/fall risk would ideally like to get her back into normal rhythm to avoid need for any anticoagulation [facility] Heparin SQ converted to gtt and will continue such for now Continued discussions w/ family if not able to restore normal rhythm given risks -- did discuss 10/18 (3) Ischemic cardiomyopathy: Plan: Presented 03/30/12 with an acute anterior NM (peak troponin 99) - subtotal LAD occlusion and no other significant CAD. Cath by Dr Street Prior ECHO w/ EF 30-35%, anteroapical apical and septal akinesis without evidence of LV thrombus,and mild TR at that time and was d/c on ASA/Plavix, Xarelto, amiodarone, lisinopril, metoprolol and spironolactone. Subsequent dc of AC and antiarrhythmic therapy given "no reoccurrence of atrial fibrillation." ECHO 2017 w/ LV 35%, mild LVH, grade I diastolic dysfunction. Repeat ECHO as above, worsened EF Suspect 2nd to elevated HRs at jail. Management as above (4) Shortness of breath: Plan: suspected 2nd to above, procal <0.05, COVID/biofire negative Diuretics as above, now on hold. Patient on room air Hx FIDE, completed 12mo of triple therapy per Dr Suarez prior notes (literature recs 18mo, unclear if would be able to tolerate regimen further) * CT chest Mild mediastinal and bilateral hilar lymphadenopathy. This is nonspecific but has also progressed compared to the prior study. Bronchial wall thickening with scattered tree-in-bud nodular opacities again noted. This has progressed in the interval. This may represent an acute or chronic infectious bronchiolitis. Discussed w/ pulm provider on admission, possible debris in esophagus, noting b/l effusions L>R, possible infectious process and agreed with empiric antibiotics (on Zosyn/Doxy) and pulmonary toilet as well as diuretics. Duonebs prn Continue Zosyn for aspiration coverage for now. Consider switching to augmentin to complete course for tomorrow Supplemental O2 as above Consider overnight pulse ox study, ?underlying JAMA w/ her diastolic dysfunction on ECHO -- will check tonight if remains on room air (5) Acute respiratory failure: Plan: Did have PET scan in past, no FDG uptake in mediastinum, noting uptake in thyroid (family unaware of finding initially, however did discuss finding last evening) Discussed prior PET scan w/ negative uptake to lungs/mediastinum, however they were unaware of thyroid uptake. Discussed will plan to check TSH but discussed if they would want to pursue this. Daughter stated patient declining, agreed to abx/diuretics, making comfortable but doesn't not feel they would want to be aggressive about pursuing any kind of biopsy/treatment for this. No want to persue this at this time Remains on Zosyn, pulmonary toilet, but suspect need for diuretics/normal rhythm as above main culprit for presentation but does appear w/ chronic aspiration and will cover. Consider switching to augmentin tomorrow O2 as needed, CO2 resolved w/ dose diamox. Overnight sleep study tonight (6) CKD (chronic kidney disease) stage 3, GFR 30-59 ml/min: Plan: kdiney function stable/improving with diuretics/management of CHF as above until this morning, suspect 2nd to digoxin use/hypotension w/ her afib/RVR Holding further lasix, losartan to be resumed given her ischemic cardiomyopathy, EF 20-25% and will monitor in AM Disconitnued further digoxin Avoid nephrotoxins as able/renal dose meds as appropriate BMP in AM (7) Hypoxia: Plan: on room air at present, supplemental O2 to maintain sats in place (8) Anemia: Plan: Also w/ recently diagnosed anemia per daughter however she notes they checked her stool for blood and this was negative. Hgb 8.3 on admission with baseline in 8-10s over past couple months (first drop 10/2021) Checked iron panel given MCV 78.8 on labs (appears has dropping between June and September of this year) Iron panel w/ RUBEN Iron 19/trans % sat 5, unsat IBC 380 Venofer 300mg IV, 200mg IV, 200mg IV and holding further dosing given hypotension Protonix continued Hgb stable/improved w/ 9.6 at present Monitor CBC, nneka given recent start heparin gtt. Monitor for any bleeding (9) Confusion: Plan: ?combination infection/volume overload no worsening confusion, suspect from volume overloaded state/hypoxia at jail UA w/o evidence for infection. No fever/leukocytosis As above, thyroid nodules/uptake on prior PET --> family declined further eval for now, focus on diuretics/abx for now Mentation appears around baseline during repeat exams (10) Chronic pulmonary aspiration: Plan: noting -- speech eval as above, suspected esophageal dysmotility, diet modified and will continue precautions (11) Esophageal dysmotility: Plan: per prior speech note 2017, patient denied issues but suspect chronic (however stable as has been years since prior eval) aspiration precautions, speech consult as above (12) Hypertension: Plan: BP stable/borderline on admission. Suspect from volume overload and had improved w/ diuretics but then developed afib/RVR as above and hypotension yesterday afternoon Further lasix held, losartan continued given EF/CHF and BP currently stable at 114/48 and will monitor Given her metoprolol but at 50mg PO this morning given lower BP to help w/ her afib as above, now on amiodarone gtt/heparin gtt and monitor CONSIDERATION FOR ENTRESTO given EF/cardiomyopathy if BPs tolerate and sinus rhythm restored/maintained hopefully (13) Coronary artery disease: Plan: followed by Dr Street No CP reported, trop trended down on repeat, likely from demand ischemia from volume overload ECHO as above, cards consulted EKG w/ CP (14) Pulmonary nodule: Plan: noted, no uptake on prior PET scan noted (note did have thyroid uptake -- will need further eval if family decides they want to but declined in days past). Patient is DNR (15) H/O allergic bronchopulmonary aspergillosis: Plan: tx x 12 mo noted, discussed w/ pulm. no formal consult at present (16) Fall: Plan: reported by daughter, no LOC/trauma, no findings on exam for head trauma ?from combination from above (17) Dyslipidemia: Plan: continue statin (18) Dementia: Plan: at baseline reported (19) Paroxysmal atrial fibrillation: Plan: no recurrence per Dr Street post NM, not on anticoagulation any longer, just plavix. HOWEVER see above since afternoon 10/17 monitor on telemetry keep K/mag replete (20) Elevated troponin: Plan: Troponin elevation Trop elevated 26.1 but suspect 2nd to myocardial demand ischemia from volume overload state. downtrended on repeat, cancelled further draws, no CP reported EKG w/ CP. Hx afib not on AC. EKG w/ SR, 1st degree AV block. LAD. LVH. PVC no longer present compared to 2018 ECHO as above Plan DVT Proph:SCDS on admission given anemia but suspect RUBEN/volume overload. Heparin SQ initiated but now on heparin gtt given her afib/rvr as above Continue Zosyn for IV abx for aspiration PNA coverage Lasix on hold given elevated Cr, resume as able with monitoring of BP/kidney function in AM Eventual benefit from entresto for cardiomyopathy with EF 20-25% Starting amiodarone/heparin gtt for afib/RVR, hopefully able to convert/maintain SR Updated daughter Giovana on the phone this morning ([phone]). Continued discussions about anticoagulation (however rec'd against per cards) to be undertaken if unable to convert/maintain sinus rhythm Admission and Anticipated Discharge Date Admission Date: October 15, 2022 Supervising Physician Co-Signing Physician Notes PA Supervision Note: I did not personally see or examine the patient. I verified all crocker points and agree with BEN Mcgill with the following exceptions and/or additions: Given patient's elevated HR earlier today will initiate amiodarone gtt, holding diuretics at this time suspect approaching euvolemia, creatinine bumped yesterday so repeat tomorrow. Continue heparin gtt and risk/benefit discussion of AC with family. Subjective patient in/out afib, some p waves, since yesterday afternoon given digoxin with some improvement in rates. did convert to NSR this morning but for a minute, sen to the 30s, then back to afib, but 90s-110s. On Heparin SQ, no issues reported by patient. Currently titrated to room air, 94% on room air. Denies any increased shortness of breath, chest pain, palpitations at present. Patient reports improvement in her appetite/PO intake. Urine with slightly more concentrated yellow urine draining. Discussing with cardiology, possible start amiodarone given rates/renal function but could potentially make bradycardia worse but may reduce risk of thromboembolism. Once confirmed with Dr Orozco will plan to initiate. Suspect possible drop in EF from patient potentially doing this at [facility] with rapid tachycardia without anyone knowing this. After discussion, will plan to convert SQ to IV heparin in the meantime and hopefully be able to restore sinus rhythm, will start Amiodarone gtt. Physical Exam Physical Exam: General: chronicall ill appearing female sitting up in chair, appears improved compared to yesterday, NAD, on room air HEENT: head normocephalic, atraumatic, mmm, trachea midline, +JVD noted Resp: diminished in the bases,decreased wheezing, no crackles/rales, on room air CV: regular rate/rhythm, +faint murmur, ?S3, bilateral pitting edema SIGNIFICANTLY improved 10/17 but slightly increased 10/18 (1+ b/l) calves nontender GI+BS, soft/NT ; more concentrated yellow urine in wise bag MSK/Neuro: generalized weakness, no facial droop/slurred speech, follows commands as able Psych: alert to person, place on occasion, dementia at baseline but cooperative with exam, no agitation Skin: b/l dry skin to legs, flaking, slightly reddened spots but no obvious cellulitis/open lesions, nontender Results & Data Results & Data Vital Signs (Past 12 Hours) Vital Signs Temp Pulse Pulse Resp BP Pulse Ox O2 Del Method 10/18/22 03:23 36.6 C 79 16 116/58 L 92 Nasal Cannula 10/17/22 23:00 95 H 10/17/22 23:12 36.6 C 81 20 113/74 98 Nasal Cannula O2 Flow Rate 10/18/22 03:23 2 10/17/22 23:00 10/17/22 23:12 2 Laboratory Results 10/18/22 10/18/22 10/18/22 Range/Units 06:14 06:14 06:14 WBC 7.80 (4.8-10.8) K/ul RBC 4.15 L (4.20-5.40) M/uL Hgb 9.6 L (12.0-16.0) g/dl Hct 32.8 L (37.0-47.0) % MCV 79.0 L (80.0-100.0) fL MCH 23.1 L (25.0-34.0) pg MCHC 29.3 L (32.0-36.0) g/dL RDW Std Deviation 49.1 H (36.4-46.3) fL RDW Coeff of Gracie 18.7 H (11.5-14.5) % Plt Count 252 (130-400) K/uL MPV 9.7 (9.4-12.4) fL Sodium 138 (136-145) mmol/L Potassium 4.2 (3.5-5.1) mmol/L Chloride 100 (98-107) mmol/L Carbon Dioxide 29 (21-32) mmol/L Anion Gap 9 (3-11) BUN 30 H (6-23) mg/dl Creatinine 1.74 H D (0.6-1.2) mg/dl Est Cr Clr Drug Dosing 25.6 ml/min Est GFR ( Amer) 30.5 ml/min Est GFR (Non-Af Amer) 26.3 ml/min BUN/Creatinine Ratio 17.2 (10-20) Glucose 115 H (70-99(Fasting)) mg/dl Calcium 9.4 (8.6-10.3) mg/dl Magnesium 2.2 (1.7-2.4) mg/dl Digoxin 1.4 (0.8-2.0) ng/ml Diagnostic Findings Chest X-Ray 10/17/22 06:00 XR chest 1V portable CLINICAL HISTORY: follow up congestion TECHNIQUE: Single frontal radiograph of the chest was obtained. Comparison: Comparison is made to chest radiograph 10/16/2022 FINDINGS: No lines and tubes are seen. Cardiomegaly is noted. The aortic arch is calcified. Prominence and cephalization of the vasculature is seen. Bronchial wall thickening is again seen. Small bilateral pleural effusions are seen. IMPRESSION: 1. Cardiomegaly and mild pulmonary edema. Small bilateral pleural effusions. These findings are stable. 2. Bronchial wall thickening is again seen. ACT 112: Negative or not required by law. Electronically signed by: Nicholas Wiggins M.D. 10/17/2022 8:20 AM Videofluoroscopic Swallow 10/17/22 10:30 FL video swallow CLINICAL HISTORY: r/o aspiration TECHNIQUE: Video fluoroscopy of the pharyngeal region was performed as barium mixtures of varying consistencies were administered to the patient by the speech pathologist. A formal esophagram was not performed. Comparison: None available at the time of this dictation. FINDINGS: Total fluoroscopy time: 1.15 minutes. Radiation dose: 6.06 mGy. The patient swallowed the different barium consistencies without difficulty. There was no laryngeal vestibular penetration or tom tracheal aspiration. Pooling of barium was noted in the bilateral piriform sinuses and valleculae. IMPRESSION: No evidence of aspiration. Please see the speech pathology report for further details. ACT 112: Negative or not required by law. Electronically signed by: Nicholas Wiggins M.D. 10/17/2022 11:59 AM Chest X-Ray 10/18/22 07:00 XR chest 1V portable HISTORY: 86 years-old Female follow up CHF acute shortness of breath COMPARISON: 10/17/2022 TECHNIQUE: AP view of the chest FINDINGS: Cardiac silhouette is enlarged. No pneumothorax, or lobar airspace consolidation. Pulmonary vascular congestion again noted. Degenerative changes of the shoulders and spine. Trace pleural effusions. Surgical anchors of the right humeral head. Degenerative changes of the shoulders and spine. IMPRESSION: 1. Cardiomegaly with pulmonary vascular congestion. 2. Trace pleural effusions. ACT 112: Negative or not required by law. The above report was generated using voice recognition software. It may contain grammatical, syntax or spelling errors. Electronically signed by: Filippo Rollins M.D. 10/18/2022 7:18 AM PG Care Time/CCT Total # of Minutes Spent Total Time Spent with Patient: Total time spent is greater than 50% in coordination of care (as documented) at patient's floor/unit and/or counseling patient: Coding Level of Care Code 83767 SUB INP/OBS CARE 3/50MIN Diagnoses Acute on chronic systolic (congestive) heart failure I50.23 Atrial fibrillation I48.91 Ischemic cardiomyopathy I25.5 Shortness of breath R06.02 Acute respiratory failure J96.00 CKD (chronic kidney disease) stage 3, GFR 30-59 ml/min N18.30 Hypoxia R09.02 Anemia D64.9 Confusion R41.0 Chronic pulmonary aspiration T17.908A Esophageal dysmotility K22.4 Hypertension I10 Coronary artery disease I25.10 Pulmonary nodule R91.1 H/O allergic bronchopulmonary aspergillosis Z86.19 Fall W19.XXXA Dyslipidemia E78.5 Dementia F03.90 Paroxysmal atrial fibrillation I48.0 Elevated troponin R77.8
[2022-10-18] MEDS: GABAPENTIN 100 MG CAP PO SCH ×3 (09:47→21:36)
[2022-10-18] MEDS: SENNA 8.6 MG TAB PO SCH ×2 (09:47→21:36)
[2022-10-18] MEDS: CHOLECALCIFEROL 1,000 UNITS 25 MCG TAB PO SCH (09:48)
[2022-10-18] MEDS: CLOPIDOGREL BISULFATE 75 MG TAB PO SCH (09:48)
[2022-10-18] MEDS: PANTOprazole 40 MG TAB PO SCH (09:48)
[2022-10-18] MEDS: MONTELUKAST SODIUM 10 MG TABLET PO SCH (09:48)
[2022-10-18] MEDS: buPROPion SR 150 MG TABCR PO SCH (09:48)
[2022-10-18] MEDS: VENLAFAXINE HCL XR 37.5 MG CAPXR PO SCH (09:48)
[2022-10-18] MEDS: PRAVASTATIN SOD 40 MG TAB PO SCH (09:48)
[2022-10-18] MEDS: HEPARIN SOD 5,000 UNIT/0.5 ML VIAL SQ SCH (09:49)
[2022-10-18] MEDS: FLUTICASONE/VILANTEROL 100/25MCG 14 PUFFS/INHALER INH SCH (09:49)
[2022-10-18] MEDS: CYANOCOBALAMIN (B-12) 500 MCG TABLET PO SCH (09:49)
[2022-10-18] MEDS: METOPROLOL SUCC 25MG EXT REL TAB PO SCH ×2 (10:33→10:38)
[2022-10-18] MEDS ORDERED: METOPROLOL SUCC 50MG EXT REL TAB PO STA (10:34)
[2022-10-18] MEDS ORDERED: Heparin IV Adult Wt-Based Low-Dose *NO* Bolus Protocol IV SCH (10:55)
[2022-10-18] MEDS ORDERED: AMIODARONE / D5W 150 MG/100 ML BAG IV STA (10:56)
[2022-10-18] MEDS ORDERED: 0.2 MICRON FILTER SET 1 EACH IV STA (10:56)
[2022-10-18] MEDS ORDERED: STAT IV Infusion **Titration per Protocol STA (10:56)
[2022-10-18] MEDS ORDERED: AMIODARONE IV BOLUS & DRIP IV STA (10:56)
[2022-10-18] MEDS ORDERED: AMIODARONE / D5W 360 MG/200 ML BAG IV ONE (11:06)
[2022-10-18 12:04] LABS: Partial Thromboplastin Ratio 1.1; Partial Thromboplastin Time 29.7 Seconds (21.0-31.0)
[2022-10-18] MEDS: HEPARIN SODIUM/DEXTROSE 25,000 UNITS/500 ML BAG IV SCH (12:12)
--- NOTE | 2022-10-18 12:36 | Cardiology Progress Note ---
Date of Service October 18, 2022 Assessment & Plan (1) Atrial fibrillation: Plan: -rate poorly controlled, medicines limited by blood pressure. -has demonstrated several episodes of sinus bradycardia. -recommend intravenous amiodarone hoping to attains sinus rhythm. -intravenous heparin for now. -seems too high risk for long-term anticoagulation (dementia and frequent falls). (2) Acute on chronic systolic (congestive) heart failure: Plan: -suspect a significant component of systolic CHF at time of presentation. -improve done intravenous diuretics, currently on hold. -continue metoprolol succinate and losartan. (3) Coronary artery disease: Plan: -s/p LAD DONNY, March 2012. -quiescent on medical management. (4) Ischemic cardiomyopathy: Plan: -LVEF now 20-25%. -question if deterioration in EF related to rapid atrial dysrhythmia. -continue metoprolol succinate and losartan. (5) Hypertension: Plan: -adequate control on current regimen. (6) Dyslipidemia: Plan: -continue pravastatin. Admission and Anticipated Discharge Date Admission Date: October 15, 2022 Subjective The patient is resting comfortably in bedside chair without complaints of chest pain, dyspnea, or palpitations. Physical Exam Physical Exam: In general is a well-developed well-nourished white female no acute distress. HEENT exam is negative. Neck is supple with full carotid upstrokes. Jugular venous pressure is flat at 90. There is no thyromegaly. Cardiovascular exam reveals an irregularly irregular with distant heart sounds. No obvious murmurs. Lungs are clear without rales, rhonchi, or wheezes. Abdomen is soft and nontender without bruits. Extremities reveal intact radial artery pulses bilaterally. There is trace peripheral edema. Results & Data Vital Signs (Past 12 Hours) Vital Signs Temp Pulse Pulse Resp BP Pulse Ox O2 Del Method 10/18/22 08:00 82 10/18/22 09:00 36.9 C 89 16 111/87 94 Room Air 10/18/22 03:23 36.6 C 79 16 116/58 L 92 Nasal Cannula O2 Flow Rate 10/18/22 08:00 10/18/22 09:00 10/18/22 03:23 2 Diagnostic Findings monitoring engineer as noted rapid atrial fibrillation, and several episodes of sinus bradycardia. PG Care Time/CCT Total # of Minutes Spent Total Time Spent with Patient: Total time spent is greater than 50% in coordination of care (as documented) at patient's floor/unit and/or counseling patient: Coding Level of Care Code 84983 SUB INP/OBS CARE MIN Diagnoses Atrial fibrillation I48.91 Acute on chronic systolic (congestive) heart failure I50.23 Coronary artery disease I25.10 Ischemic cardiomyopathy I25.5 Hypertension I10 Dyslipidemia E78.5
[2022-10-18] MEDS ORDERED: HEPARIN SOD 5,000 UNIT/0.5 ML VIAL SQ SCH (14:00)
[2022-10-18] MEDS ORDERED: DIGOXIN 0.125 MG TAB PO SCH (16:00)
--- NOTE | 2022-10-18 16:08 | Electrocardiogram Report ---
Test Reason : Blood Pressure : / mmHG Vent. Rate : 068 BPM Atrial Rate : 068 BPM P-R Int : 264 ms QRS Dur : 102 ms QT Int : 398 ms P-R-T Axes : 054 -61 078 degrees QTc Int : 423 ms Sinus rhythm with 1st degree A-V block Left axis deviation Voltage criteria for left ventricular hypertrophy Poor R wave progression, consider anterior PA vs. lead placement vs. LVH Abnormal ECG When compared with ECG of 17-OCT-2022 12:04, Premature atrial complexes are no longer Present MT interval has increased Vent. rate has decreased BY 50 BPM Confirmed by Estrada Thurman ([id number]) on 10/18/2022 4:08:19 PM Referred By: [facility] Confirmed By:Estrada Thurman
[2022-10-18] MEDS: AMIODARONE / D5W 360 MG/200 ML BAG IV SCH (18:18)
[2022-10-18 18:49] LABS: Partial Thromboplastin Time 55.7 Seconds (21.0-31.0)
[2022-10-18] MEDS: MELATONIN 3 MG TAB PO SCH (21:36)
[2022-10-18] MEDS: traZODone HCL 50 MG TAB PO SCH (21:37)
[2022-10-19] MEDS: PIPERACILLIN/TAZOBACTAM 4.5 GM in DEXTROSE 5% 100 ML IV SCH ×2 (02:14→09:10)
[2022-10-19] MEDS: AMIODARONE / D5W 360 MG/200 ML BAG IV SCH (06:00)
[2022-10-19 06:41] LABS: Basophils # (auto) 0.05 K/uL (0-0.2); Basophils % (auto) 0.7 %; Eosinophils # (auto) 0.37 K/uL (0-0.50); Hematocrit (blood only) 30.7 % (37.0-47.0); Hemoglobin 8.9 g/dl (12.0-16.0); Immature Granulocytes # (auto) 0.05 K/uL (0.01-0.20); Immature Granulocytes % (auto) 0.7 %; Lymphocytes # (auto) 1.44 K/uL (1.2-3.4); Lymphocytes % (auto) 19.5 %; Mean Corpuscular Hemoglobin 23.3 pg (25.0-34.0); Mean Corpuscular Volume 80.4 fL (80.0-100.0); Mean Platelet Volume 9.8 fL (9.4-12.4); Monocytes # (auto) 0.59 K/uL (0.11-0.59); Neutrophils # (auto) 4.89 K/uL (1.40-6.50); Neutrophils % (auto) 66.1 %; Platelet Count 240 K/uL (130-400); RDW Coefficient of Variation 19.1 % (11.5-14.5); RDW Standard Deviation 49.8 fL (36.4-46.3); Red Blood Count 3.82 M/uL (4.20-5.40); White Blood Count 7.39 K/ul (4.8-10.8)
[2022-10-19 06:55] LABS: BUN Creatinine Ratio 17.9 (10-20); Calcium 9.1 mg/dl (8.6-10.3); Creatinine Clr Calc Pharmacy 28.4 ml/min; Est GFR (African American) 34.5 ml/min; Est GFR (Non-African American) 29.8 ml/min; Potassium 3.5 mmol/L (3.5-5.1)
[2022-10-19 07:35] LABS: INR 1.1 (0.9-1.1); Partial Thromboplastin Ratio 3.1; Prothrombin Time 11.9 Seconds (9.0-12.0)
[2022-10-19 07:54] LABS: Partial Thromboplastin Time 88.6 Seconds (21.0-31.0)
[2022-10-19] MEDS ORDERED: POTASSIUM CHLORIDE 20 MEQ/15 ML UDC PO STA (08:44)
[2022-10-19] MEDS: GABAPENTIN 100 MG CAP PO SCH ×3 (09:01→21:56)
[2022-10-19] MEDS: METOPROLOL SUCC 25MG EXT REL TAB PO SCH (09:02)
[2022-10-19] MEDS: LOSARTAN POTASSIUM 25 MG TAB PO SCH (09:03)
[2022-10-19] MEDS: buPROPion SR 150 MG TABCR PO SCH (09:04)
[2022-10-19] MEDS: MONTELUKAST SODIUM 10 MG TABLET PO SCH (09:05)
[2022-10-19] MEDS: VENLAFAXINE HCL XR 37.5 MG CAPXR PO SCH (09:05)
[2022-10-19] MEDS: PRAVASTATIN SOD 40 MG TAB PO SCH (09:05)
[2022-10-19] MEDS: CYANOCOBALAMIN (B-12) 500 MCG TABLET PO SCH (09:06)
[2022-10-19] MEDS: CLOPIDOGREL BISULFATE 75 MG TAB PO SCH (09:06)
[2022-10-19] MEDS: CHOLECALCIFEROL 1,000 UNITS 25 MCG TAB PO SCH (09:06)
[2022-10-19] MEDS: PANTOprazole 40 MG TAB PO SCH (09:06)
[2022-10-19] MEDS: SENNA 8.6 MG TAB PO SCH ×2 (09:07→21:57)
[2022-10-19] MEDS: FLUTICASONE/VILANTEROL 100/25MCG 14 PUFFS/INHALER INH SCH (09:07)
[2022-10-19] MEDS: FUROSEMIDE 40 MG TAB PO SCH (09:13)
--- NOTE | 2022-10-19 14:02 | Cardiology Progress Note ---
Date of Service October 19, 2022 Assessment & Plan (1) Atrial fibrillation: Plan: -converted to sinus rhythm on intravenous amiodarone. -would discontinue drip and convert to amiodarone 200 mg p.o. daily. -would discontinue intravenous heparin. -would decrease metoprolol succinate dose to 25 mg daily. -seems too high risk for long-term anticoagulation (dementia and frequent falls). (2) Acute on chronic systolic (congestive) heart failure: Plan: -suspect a significant component of systolic CHF at time of presentation. -improved on intravenous diuretics, currently on hold. -continue metoprolol succinate and losartan. (3) Coronary artery disease: Plan: -s/p LAD DONNY, March 2012. -quiescent on medical management. (4) Ischemic cardiomyopathy: Plan: -LVEF now 20-25%. -question if deterioration in EF related to rapid atrial dysrhythmia. -continue metoprolol succinate and losartan. (5) Hypertension: Plan: -adequate control on current regimen. (6) Dyslipidemia: Plan: -continue pravastatin. Admission and Anticipated Discharge Date Admission Date: October 15, 2022 Subjective The patient is resting comfortably in bedside chair without complaints of chest pain, dyspnea, or palpitations. Physical Exam Physical Exam: In general is a well-developed well-nourished white female no acute distress. HEENT exam is negative. Neck is supple with full carotid upstrokes. Jugular venous pressure is flat at 90. There is no thyromegaly. Cardiovascular exam reveals a regular with distant heart sounds. No obvious murmurs. Lungs are clear without rales, rhonchi, or wheezes. Abdomen is soft and nontender without bruits. Extremities reveal intact radial artery pulses bilaterally. There is trace peripheral edema. Results & Data Vital Signs (Past 12 Hours) Vital Signs Temp Pulse Pulse Pulse Resp BP Pulse Ox 10/19/22 11:00 36.8 C 74 18 114/62 97 10/19/22 08:00 36.6 C 60 16 121/63 97 10/19/22 07:14 57 L 10/19/22 03:20 36.5 C 62 16 134/73 93 10/19/22 02:13 61 Pulse Ox O2 Del Method O2 Del Method O2 Flow Rate 10/19/22 11:00 Room Air 10/19/22 08:00 Nasal Cannula 2 10/19/22 07:14 10/19/22 03:20 Room Air 10/19/22 02:13 96 Room Air Diagnostic Findings equipment monitor phototypesetting notes sinus rhythm and sinus bradycardia. PG Care Time/CCT Total # of Minutes Spent Total Time Spent with Patient: Total time spent is greater than 50% in coordination of care (as documented) at patient's floor/unit and/or counseling patient: Coding Level of Care Code 33275 SUB INP/OBS CARE 3/50MIN Diagnoses Atrial fibrillation I48.91 Acute on chronic systolic (congestive) heart failure I50.23 Coronary artery disease I25.10 Ischemic cardiomyopathy I25.5 Hypertension I10 Dyslipidemia E78.5
[2022-10-19] MEDS: AMIODARONE 200 MG TAB PO SCH (16:38)
[2022-10-19] MEDS: HEPARIN SODIUM/DEXTROSE 25,000 UNITS/500 ML BAG IV SCH (17:29)
--- NOTE | 2022-10-19 19:23 | Hospitalist Progress Note ---
Date of Service October 19, 2022 Assessment & Plan (1) Acute on chronic systolic (congestive) heart failure: Plan: Presented w/ SOB/hypoxia, cough, elevated BNP, bronchiolitis and small pleural effusions on Chest CT, and new afib/rvr found during hospitalization Hx CHF (prior EF 30-40%) and now EF down to 20-25% Treated with lasix 40mg IV to BID and diamox x1 w/ titration to RA/improvement on exam Weight down 1.5 kg, I/O net -4.3L Lasix held then for hypotension related to Afib but can restart lasix 40mg po daily now -continue Losartan -reduce Toprol XL to 25mg daily (down from 75mg) given intermittent bradycardia and hypotension with rate control for rapid Afib -consider starting Entresto as outpt -CHF clinic consulted -rate control Afib and perhaps reduced EF from tachyarrhythmia -change to low sodium diet, fluid restrict to 1800mL (2) Atrial fibrillation: Plan: flipped into afib/rvr 10/17 rates up to 130/140s, was hypotensive Was given Digoxin 0.25mcg IV, repeated in 4 hrs and started PO 0.125mcg daily for 10/18 -- HOLDING FURTHER DIGOXIN as had bradycardia started amiodarone gtt and now converted to NSR given dementia/fall risk would ideally like to get her back into normal rhythm to 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 Cath by Dr Street Prior ECHO w/ EF 30-35%, anteroapical apical and septal akinesis without evidence of LV thrombus,and mild TR at that time ECHO 2017 w/ LV 35%, mild LVH, grade I diastolic dysfunction. Repeat ECHO as above, worsened EF Suspect 2nd to elevated HRs at home. Management as above (4) Acute respiratory failure: Plan: 2/2 acute on chronic HFrEF and possible aspiratin PNA CT Chest with bronchiolitis, pleural effusions Hypoxia now resolved except needing 2LNC O2 qhs as per overnight pulse ox testing Procal <0.05, COVID/biofire negative Hx FIDE, completed 12mo of triple therapy per Dr Suarez prior notes (literature recs 18mo, unclear if would be able to tolerate regimen further) Discussed w/ pulm provider on admission, possible debris in esophagus, noting b/l effusions L>R, possible infectious process and agreed with empiric antibiotics (on Zosyn/Doxy) and pulmonary toilet as well as diuretics. 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 with diuresis ok to resume po lasix continue losartan -Avoid nephrotoxins -renally dose meds when appropriate -follow BMP (6) Anemia: Plan: Hgb 8.3 on admission with baseline in 8-10s over past couple months (first drop 10/2021) Checked iron panel given MCV 78.8 on labs (appears has dropping between June and September of this year) Iron panel w/ RUBEN Iron 19/trans % sat 5, unsat IBC 380 Venofer 300mg IV, 200mg IV, 200mg IV doses given and hgb stable today Protonix continued f/u as outpt (7) Confusion: Plan: Acute encephalopathy 2/2 hypoxemia and aspiration PNA improved (8) Chronic pulmonary aspiration: Plan: speech eval ordered, suspected esophageal dysmotility, diet modified and will continue precautions (9) Esophageal dysmotility: Plan: per prior speech note 2018, patient denied issues but suspect chronic (however stable as has been years since prior eval) aspiration precautions, speech consult as above (10) Hypertension: Plan: BPs mildly elevated continue losartan, reduced dose of metoprolol, and resume po lasix follow (11) Coronary artery disease: Plan: followed by Dr Street, LAD DONNY No CP reported, trop trended down on repeat, likely from demand ischemia from volume overload ECHO as above, cards consulted (12) Pulmonary nodule: Plan: noted, no uptake on prior PET scan noted (note did have thyroid uptake -- will need further eval if family decides they want to but declined in days past) (13) Fall: Plan: reported by daughter, no LOC/trauma, no findings on exam for head trauma ?from combination from above (14) Dyslipidemia: Plan: continue statin (15) Dementia: Plan: at baseline reported (16) Elevated troponin: Plan: Trop elevated 26.1 but suspect 2nd to myocardial demand ischemia from acute on chronic HFrEF and PNA downtrended on repeat, no CP reported Plan DVT Proph:SCDS ,heparin gtt whichis now stopped Dispo-continued stay, possible dc to [place] tomorrow if remains in sinus rhythm Need to dc Giraldo in AM Admission and Anticipated Discharge Date Admission Date: October 15, 2022 Subjective Pt had some incontinence to one loose stool today as per nursing. SHe tells me she doesn't remember what happened to her today. Denies SOB, CP. Tele with SB, NSR, rates 50-80s, no further Afib Physical Exam Constitutional: WD/WN, vitals as above Neck: trachea midline, no thyromegaly Respiratory: normal respiratory effort; no cough Auscultation: + diminished lung sounds (bases bilat ) and + crackles (bibasilar); no wheezes Cardiovascular: RRR, no murmur, no edema Chest (Breasts): Chest: normal inspection of chest Gastrointestinal (Abdomen): normal bowel sounds, soft, nontender, no hepatosplenomegaly Musculoskeletal: Extremities: extremities normal to inspection; no cyanosis and no clubbing Skin: no rashes, warm and dry Neurologic: moves all extremities and awake; no focal motor deficits Psychiatric: Orientation: alert, oriented to person and cooperative Genitourinary: Giraldo in place Results & Data Results & Data Vital Signs (Past 12 Hours) Vital Signs Temp Pulse Pulse Resp BP Pulse Ox O2 Del Method 10/19/22 14:00 58 L 10/19/22 17:00 36.8 C 78 18 128/70 97 Room Air 10/19/22 11:00 36.8 C 74 18 114/62 97 Room Air 10/19/22 08:00 36.6 C 60 16 121/63 97 Nasal Cannula O2 Flow Rate 10/19/22 14:00 10/19/22 17:00 10/19/22 11:00 10/19/22 08:00 2 Laboratory Results CBC, BMP, magnesium reviewed PG Care Time/CCT Total # of Minutes Spent Total Time Spent with Patient: Total time spent is greater than 50% in coordination of care (as documented) at patient's floor/unit and/or counseling patient: Coding Level of Care Code 80914 SUB INP/OBS CARE 3/50MIN Diagnoses Acute on chronic systolic (congestive) heart failure I50.23 Atrial fibrillation I48.91 Ischemic cardiomyopathy I25.5 Acute respiratory failure J96.00 CKD (chronic kidney disease) stage 3, GFR 30-59 ml/min N18.30 Anemia D64.9 Confusion R41.0 Chronic pulmonary aspiration T17.908A Esophageal dysmotility K22.4 Hypertension I10 Coronary artery disease I25.10 Pulmonary nodule R91.1 Fall W19.XXXA Dyslipidemia E78.5 Dementia F03.90 Elevated troponin R77.8
[2022-10-19] MEDS: traZODone HCL 50 MG TAB PO SCH (21:56)
[2022-10-19] MEDS: MELATONIN 3 MG TAB PO SCH (21:57)
[2022-10-20 07:31] LABS: Basophils # (auto) 0.03 K/uL (0-0.2); Basophils % (auto) 0.6 %; Eosinophils # (auto) 0.29 K/uL (0-0.50); Eosinophils % (auto) 5.8 %; Hemoglobin 9.5 g/dl (12.0-16.0); Immature Granulocytes # (auto) 0.05 K/uL (0.01-0.20); Lymphocytes # (auto) 0.87 K/uL (1.2-3.4); Lymphocytes % (auto) 17.3 %; Mean Corpuscular Hemoglobin 23.8 pg (25.0-34.0); Mean Corpuscular Hgb Conc 29.7 g/dL (32.0-36.0); Mean Platelet Volume 9.6 fL (9.4-12.4); Neutrophils # (auto) 3.28 K/uL (1.40-6.50); Neutrophils % (auto) 65.3 %; Platelet Count 230 K/uL (130-400); RDW Coefficient of Variation 19.7 % (11.5-14.5); RDW Standard Deviation 50.2 fL (36.4-46.3); White Blood Count 5.02 K/ul (4.8-10.8)
[2022-10-20 08:01] LABS: BUN Creatinine Ratio 15.2 (10-20); Calcium 9.1 mg/dl (8.6-10.3); Creatinine Clr Calc Pharmacy 33.3 ml/min; Est GFR (African American) 42.2 ml/min; Est GFR (Non-African American) 36.4 ml/min; Magnesium 2.1 mg/dl (1.7-2.4); Potassium 3.4 mmol/L (3.5-5.1)
[2022-10-20] MEDS: SENNA 8.6 MG TAB PO SCH (08:01)
[2022-10-20] MEDS: CHOLECALCIFEROL 1,000 UNITS 25 MCG TAB PO SCH (08:02)
[2022-10-20] MEDS: GABAPENTIN 100 MG CAP PO SCH (08:02)
[2022-10-20] MEDS: MONTELUKAST SODIUM 10 MG TABLET PO SCH (08:02)
[2022-10-20] MEDS: CYANOCOBALAMIN (B-12) 500 MCG TABLET PO SCH (08:03)
[2022-10-20] MEDS: PRAVASTATIN SOD 40 MG TAB PO SCH (08:03)
[2022-10-20] MEDS: LOSARTAN POTASSIUM 25 MG TAB PO SCH (08:03)
[2022-10-20] MEDS: CLOPIDOGREL BISULFATE 75 MG TAB PO SCH (08:03)
[2022-10-20] MEDS: buPROPion SR 150 MG TABCR PO SCH (08:03)
[2022-10-20] MEDS: VENLAFAXINE HCL XR 37.5 MG CAPXR PO SCH (08:04)
[2022-10-20] MEDS: FLUTICASONE/VILANTEROL 100/25MCG 14 PUFFS/INHALER INH SCH (08:04)
[2022-10-20] MEDS: AMIODARONE 200 MG TAB PO SCH (08:04)
[2022-10-20] MEDS: FUROSEMIDE 40 MG TAB PO SCH (08:04)
[2022-10-20] MEDS: PANTOprazole 40 MG TAB PO SCH (08:04)
[2022-10-20] MEDS ORDERED: POTASSIUM CHLORIDE CRTAB 20 MEQ TABCR PO STA (08:16)
[2022-10-20] MEDS ORDERED: METOPROLOL SUCC 25MG EXT REL TAB PO SCH (09:00)
--- NOTE | 2022-10-20 11:15 | Discharge Summary ---
Discharge Summary Date of Service October 20, 2022 Notes For Next Care Provider Medication Changes From Visit Increased lasix to 40mg po daily Decreased Toprol XL to 25mg po daily Added amiodarone 200mg po daily Increased KCL to 20 meq po daily Admission HPI Per Admitting Provider 86yo female from [facility] found to be 85% and placed on 4L w/ rebound to 99%. Back to 85% on room air and upon arrival pt 99% but de-sat to 87%. Per triage note, recent diagnosis with anemia. PMHx significant for FIDE (tx w/ Dr Suarez per notes), asthma, CHF (EF prior ~30- 40%), ischemic cardiomyopathy, possible MS, bronchiectasis, HTN, HLD, dementia. Appears patient had BNP level checked yesterday by a Alexandria Berrios which was elevated to 1939, currently 1174 but was elevated to 1405 in September and patient current medication list only lists Lasix 20mg PO daily. Waiting for MAR for documentation but initial lists lasix 20mg PO order date 10/14 for start 10/15, unclear if she ever was given this. Also appears order for Ceftriaxone 1gm IV x 3 days ordered 10/14, start date 10/14. Hx CAD, on Plavix, also w/ hx paroxysmal afib, not on anticoagulation-- per Dr Street notes, no recurrence after her initial NJ, AC was discontinued. No medication list sent with patient, baseline dementia and does not know all of her medications. Sent for CT chest given CXR congestion but poor imaging, currently getting ECHO at bedside by [facility] tech. Call to daughter for additoinal information -- endorses recent dx anemia but that they checked her moms stool for blood and this was negative. Daughter reports unwitnessed fall day prior reported but they examined her but no visible injuries or known head trauma and tates they were going to look at a CXR to look for fluid and other lab work and they told her she was very confused. Reported a lot of coughing and that they reduced her lasix from 40mg to 20mg. Had heart attack a while ago, daughter states about ten years ago, followed in past by Dr Street for regular check ups. Lungs have been worsening. Per daughter, diagnosed with MS, btu not clear that's what it is. 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 She states her brother/sister are local. + for COVID May of this year, currently negative on testing. Biofire pending CT chest ordered - b/l effusions L>R, debris in trachea. ?aspirating. Patient denies any issues but will consult speech for eval for completeness. Will also treat with empiric antibiotics. Discussed admission for further eval/diuretics/echo, etc. Telemetry monitoring. Questions/concerns addressed at this time. Principal Dx & Hospital Course #1 = Principal Diagnosis (1) Acute on chronic systolic (congestive) heart failure: Presented w/ SOB/hypoxia, cough, elevated BNP, bronchiolitis and small pleural effusions on Chest CT, and new afib/rvr found during hospitalization Hx CHF (prior EF 30-40%) and now EF down to 20-25% Treated with lasix 40mg IV to BID and diamox x1 w/ titration to RA/improvement on exam Weight down 2 kg, I/O net -5.4L Lasix held then for hypotension related to Afib but restarted lasix 40mg po daily and did well with it -continue Losartan 25 mg daily -reduced Toprol XL to 25mg daily (down from 75mg) given intermittent bradycardia and hypotension with rate control for rapid Afib -consider starting Entresto and aldactone as outpt with CHF clinic -CHF clinic consulted -rate/rhythm control Afib and perhaps reduced EF from tachyarrhythmia -continue low sodium diet, fluid restrict to 1800mL, perform daily weights at home/rehab (2) Atrial fibrillation: flipped into afib/rvr 10/17 rates up to 130/140s, was hypotensive Was given Digoxin 0.25mcg IV, repeated in 4 hrs and started PO 0.125mcg daily for 10/18 -- HOLDING FURTHER DIGOXIN as had bradycardia started amiodarone gtt and converted to NSR given dementia/fall risk would ideally like to get her back into normal rhythm to avoid need for any anticoagulation 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 Cath by Dr Street Prior ECHO w/ EF 30-35%, anteroapical apical and septal akinesis without evidence of LV thrombus,and mild TR at that time ECHO 2018 w/ LV 35%, mild LVH, grade I diastolic dysfunction. Repeat ECHO as above, worsened EF Suspect 2nd to elevated HRs at home. Management as above (4) Acute respiratory failure: 2/2 acute on chronic HFrEF and possible aspiratin PNA CT Chest with bronchiolitis, pleural effusions Hypoxia now resolved except needing 2LNC O2 qhs as per overnight pulse ox testing Procal <0.05, COVID/biofire negative Hx FIDE, completed 12mo of triple therapy per Dr Suarez prior notes (literature recs 18mo, unclear if would be able to tolerate regimen further) Discussed w/ pulm provider on admission, possible debris in esophagus, noting b/l effusions L>R, possible infectious process and agreed with empiric antibiotics (on Zosyn/Doxy) and pulmonary toilet as well as diuretics. 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 on day of discharge continue losartan -Avoid nephrotoxins -renally dose meds when appropriate -follow BMP as outpt (6) Anemia: Hgb 8.3 on admission with baseline in 8-10s over past couple months (first drop 10/2021) Checked iron panel given MCV 78.8 on labs (appears has dropping between June and September of this year) Iron panel w/ RUBEN Iron 19/trans % sat 5, unsat IBC 380 Venofer 300mg IV, 200mg IV, 200mg IV doses given and hgb improved to 9.5 Protonix continued f/u as outpt (7) Confusion: Acute encephalopathy 2/2 hypoxemia and aspiration PNA improved (8) Chronic pulmonary aspiration: speech eval ordered, suspected esophageal dysmotility on video swallow, diet modified with avoidance of dry pasty foods, and will continue aspiration precautions (9) Esophageal dysmotility: per prior speech note 2018, patient denied issues but suspect chronic (however stable as has been years since prior eval) aspiration precautions, speech consult as above (10) Hypertension: BPs mildly elevated continue losartan, reduced dose of metoprolol, and po lasix follow and likely will add Entresto and aldactone as outpt (11) Coronary artery disease: followed by Dr Street, LAD DONNY No CP reported, trop trended down on repeat, likely from demand ischemia from volume overload ECHO as above, cards consulted (12) Pulmonary nodule: noted, no uptake on prior PET scan noted (note did have thyroid uptake -- will need further eval if family decides they want to but declined in days past) (13) Fall: reported by daughter, no LOC/trauma, no findings on exam for head trauma ?from combination from above (14) Dyslipidemia: continue statin (15) Dementia: at baseline reported (16) Elevated troponin: Trop elevated 26.1 but suspect 2nd to myocardial demand ischemia from acute on chronic HFrEF and PNA downtrended on repeat, no CP reported Plan DVT Proph:SCDS ,heparin gtt Dispo-dc to [facility] today Discharge Exam Constitutional WD/WN, vitals as above Neck trachea midline, no thyromegaly Respiratory normal respiratory effort; no cough Auscultation: + diminished lung sounds (bases bilat ) and + crackles (bibasilar); no wheezes Cardiovascular RRR, no murmur, no edema Chest (Breasts) Chest: normal inspection of chest Gastrointestinal (Abdomen) normal bowel sounds, soft, nontender, no hepatosplenomegaly Musculoskeletal Extremities: extremities normal to inspection; no cyanosis and no clubbing Skin no rashes, warm and dry Neurologic moves all extremities and awake; no focal motor deficits Psychiatric Orientation: alert, oriented to person and cooperative Updated Medication List Medication Instructions Recorded Confirmed Type cholecalciferol (vitamin D3) 50 2,000 unit PO DAILY 01/08/18 10/15/22 History mcg (2,000 unit) capsule clopidogrel 75 mg tablet (Plavix) 75 mg PO DAILY 01/08/18 10/15/22 History montelukast 10 mg tablet 10 mg PO DAILY 01/08/18 10/15/22 History (Singulair) pantoprazole 40 mg tablet,delayed 40 mg PO QAM 01/08/18 10/15/22 History release (Protonix) acetaminophen 325 mg tablet 650 mg PO Q4H PRN pain/fever 01/22/18 10/15/22 History (Tylenol) albuterol sulfate 90 mcg/actuation 2 puff inhalation Q6H PRN Cough 01/22/18 10/15/22 History breath activated powder inhaler bisacodyl 10 mg rectal suppository 10 mg AL Q72H PRN Constipation 01/22/18 10/15/22 History (Dulcolax (bisacodyl)) coQ10 (ubiquinol) 200 mg capsule 200 mg PO DAILY 01/22/18 10/15/22 History fluticasone furoate 100 1 inh inhalation QAM 01/22/18 10/15/22 History mcg-vilanterol 25 mcg/dose inhalation powder (Breo Ellipta) losartan 25 mg tablet (Cozaar) 25 mg PO DAILY 01/22/18 10/15/22 History magnesium hydroxide 400 mg/5 mL 30 ml PO Q OTHER DAY PRN 01/22/18 10/15/22 History oral suspension (Milk of Magnesia) Constipation metoprolol succinate 50 mg 75 mg PO DAILY 01/22/18 10/15/22 History tablet,extended release 24 hr nystatin 100,000 unit/gram topical See Rx Instructions .Route 01/22/18 10/15/22 History cream .COMPLEX PRN Rash pravastatin 40 mg tablet 40 mg PO DAILY 01/22/18 10/15/22 History bupropion HCl 150 mg tablet,12 hr 150 mg PO QAM 09/24/18 10/15/22 History sustained-release (Wellbutrin SR) nitroglycerin 0.4 mg sublingual 0.4 mg sublingual Q5M PRN Chest 10/17/18 10/15/22 History tablet (Nitrostat) Pain furosemide 20 mg tablet 20 mg PO DAILY 08/16/19 10/15/22 History melatonin 5 mg tablet 5 mg PO HS 08/16/19 10/15/22 History sennosides 8.6 mg tablet (Senokot) 8.6 mg PO BID 08/16/19 10/15/22 History albuterol sulfate 2.5 mg/3 mL 2.5 mg inhalation Q4H PRN Wheezing 09/16/19 10/15/22 History (0.083 %) solution for nebulization ondansetron HCl 4 mg tablet 4 mg PO TID PRN Nausea 09/16/19 10/15/22 History (Zofran) polyethylene glycol 3350 17 17 gm PO 3XWK 09/16/19 10/15/22 History gram/dose oral powder (Miralax) gabapentin 100 mg capsule 100 mg PO TID 09/17/21 10/15/22 History trazodone 50 mg tablet 25 mg PO HS 09/17/21 10/15/22 History venlafaxine 37.5 mg 37.5 mg PO QAM 09/17/21 10/15/22 History capsule,extended release 24 hr (Effexor XR) acetaminophen 325 mg tablet 650 mg PO HS pain 10/15/22 10/15/22 History calcium carbonate 500 mg calcium 500 mg PO QID PRN Heartburn 10/15/22 10/15/22 History (1,250 mg) chewable tablet cyanocobalamin (vitamin B-12) 1,000 mcg PO DAILY 10/15/22 10/15/22 History 1,000 mcg tablet ferrous sulfate 325 mg (65 mg 325 mg PO DAILY 10/15/22 10/15/22 History iron) tablet ipratropium 0.5 mg-albuterol 3 mg 3 ml inhalation Q4H PRN Wheezing 10/15/22 10/15/22 History (2.5 mg base)/3 mL nebulization soln menthol 4 % topical gel (Biofreeze 1 applic topical Q4H PRN Pain 10/15/22 10/15/22 History (menthol)) amiodarone 200 mg tablet 200 mg PO QAM #30 tabs 10/20/22 Rx furosemide 40 mg tablet 40 mg PO QAM #30 tabs 10/20/22 Rx metoprolol succinate 25 mg 25 mg PO DAILY #30 tabs 10/20/22 Rx tablet,extended release 24 hr potassium chloride 10 mEq 20 meq PO DAILY #60 tabs 10/20/22 Rx tablet,extended release(part/cryst) Hospital Stay Data Consultations 10/15/22 09:15 ED Decision to Admit Stat 10/15/22 13:05 Consult Cardiology Routine [facility]F Program Referral Routine Diagnostic Imagining Performed 10/15/22 09:20 CT chest diagnostic wo con Urgent 10/17/22 10:30 FL video swallow Routine ECHO Pending Results Patient Have Any Pending Studies at Discharge: No Discharge Instructions Given to Patient (Per Discharging Provider) You were admitted to the hospital for shortness of breath/low oxygen levels which is from congestive heart failure and possibly aspiration pneumonia. This improved with giving you IV lasix and controlling your abnormal rapid heart rhythm called atrial fibrillation. You also received 5 days of antibiotics for pneumonia. You will need to wear supplemental O2 at nighttime at 2L for hypoxemia. You should monitor your weights daily and alert provider for any weight gain >3 pounds in 24 hours or 5lb in a week as you would likely need adjustments to your diuretic regimen. You will need follow up with cardiology as well as CHF clinic at discharge, which will be arranged. Incidental: Noted FDG uptake on prior PET scan for thyroid. Ultrasound rec'd for further eval -- family aware, declined to further investigate w/ Ultrasound Total Time Total Time Spent Total Time Spent (In Minutes): 40 min Total Time Includes: Examination of the Patient, Discharge Planning, Medication Reconciliation and Communication With Other Providers (Cardiology) Coding Level of Care Code 21666 INP/OBS DISCH >30 MIN Diagnoses Acute on chronic systolic (congestive) heart failure I50.23 Atrial fibrillation I48.91 Ischemic cardiomyopathy I25.5 Acute respiratory failure J96.00 CKD (chronic kidney disease) stage 3, GFR 30-59 ml/min N18.30 Anemia D64.9 Confusion R41.0 Chronic pulmonary aspiration T17.908A Esophageal dysmotility K22.4 Hypertension I10 Coronary artery disease I25.10 Pulmonary nodule R91.1 Fall W19.XXXA Dyslipidemia E78.5 Dementia F03.90 Elevated troponin R77.8
== END 2022-10-20 12:15 | DRG 291 ==
LOC: ED 07:47 → 2E 10:19 → SUATTDRO 10:19 → 2E 11:19

== ENCOUNTER 2022-12-04 02:11 | Inpatient (IN) ==
[2022-12-04] MEDS ORDERED: ACETAMINOPHEN 500 MG TAB PO STA (02:29)
--- NOTE | 2022-12-04 05:54 | CT Scan Report ---
Exam(s): CT C SPINE EXAM: CT Cervical Spine Without Intravenous Contrast CLINICAL HISTORY: Reason for exam: fall, head and neck pain. TECHNIQUE: Axial computed tomography images of the cervical spine without intravenous contrast. CTDI is 23.84 mGy and DLP is 503.81 mGy-cm. Automated exposure control was utilized for the study. A dose lowering technique was utilized adhering to the principles of ALARA. COMPARISON: No relevant prior studies available. FINDINGS: Vertebrae: Unremarkable. No acute fracture. Discs/spinal canal/neural foramina: Severe degenerative disc disease changes with neural foraminal narrowing seen most prominently at C4/5, and C5/6. Soft tissues: Unremarkable. Thyroid: There are bilateral thyroid nodules measuring up to 2.2 cm on the right and 2.4 cm on the left. IMPRESSION: 1. No acute fracture or dislocation 2. Bilateral multinodular goiter Electronically signed by: Abdiaziz Garcia MD 12/04/22 05:53 AM
--- NOTE | 2022-12-04 05:57 | CT Scan Report ---
Exam(s): CT PELVIS Without Contrast EXAM: CT Pelvis Without Intravenous Contrast CLINICAL HISTORY: Reason for exam: R hip pain, fall. TECHNIQUE: Axial computed tomography images of the pelvis without intravenous contrast. CTDI is 30.31 mGy and DLP is 894.73 mGy-cm. Automated exposure control was utilized for the study. A dose lowering technique was utilized adhering to the principles of ALARA. COMPARISON: No relevant prior studies available. FINDINGS: Bladder: Unremarkable. No stones. Reproductive: Unremarkable as visualized. Bones/joints: The bones are osteopenic. Sclerotic bone island seen in the right ischium. No acute fracture or dislocation seen at the right. Moderate degenerative facet joint arthropathy changes seen in the visualized lower lumbar spine. Vasculature: Unremarkable. No lower abdominal aortic aneurysm. Lymph nodes: Unremarkable. No enlarged lymph nodes. IMPRESSION: No acute fracture Electronically signed by: Abdiaziz Garcia MD 12/04/22 05:56 AM
--- NOTE | 2022-12-04 05:58 | CT Scan Report ---
Exam(s): CT HEAD Without Contrast EXAM: CT Head Without Intravenous Contrast CLINICAL HISTORY: Reason for exam: fall, head and neck pain. TECHNIQUE: Axial computed tomography images of the head/brain without intravenous contrast. CTDI is 37.01 mGy and DLP is 624.41 mGy-cm. Automated exposure control was utilized for the study. A dose lowering technique was utilized adhering to the principles of ALARA. COMPARISON: 02/15/22 FINDINGS: Brain: Chronic periventricular ischemic demyelination changes seen due to small vessel disease. No hemorrhage. Ventricles: Unremarkable. No ventriculomegaly. Bones/joints: Unremarkable. No acute fracture. Soft tissues: Unremarkable. Sinuses: Unremarkable as visualized. No acute sinusitis. Mastoid air cells: Unremarkable as visualized. No mastoid effusion. IMPRESSION: No acute intracranial abnormality Electronically signed by: Abdiaziz Garcia MD 12/04/22 05:57 AM
[2022-12-04 07:35] LABS: Basophils # (auto) 0.04 K/uL (0.00-0.20); Basophils % (auto) 0.6 %; Eosinophils # (auto) 0.29 K/uL (0.00-0.50); Eosinophils % (auto) 4.4 %; Hematocrit (blood only) 40.5 % (37.0-47.0); Hemoglobin 12.7 g/dl (12.0-16.0); Immature Granulocytes # (auto) 0.02 K/uL (0.01-0.20); Immature Granulocytes % (auto) 0.3 %; Lymphocytes # (auto) 0.94 K/uL (1.20-3.40); Lymphocytes % (auto) 14.1 %; Mean Corpuscular Hemoglobin 27.5 pg (25.0-34.0); Mean Corpuscular Hgb Conc 31.4 g/dL (32.0-36.0); Mean Corpuscular Volume 87.9 fL (80.0-100.0); Monocytes # (auto) 0.56 K/uL (0.11-0.59); Monocytes % (auto) 8.4 %; Neutrophils # (auto) 4.81 K/uL (1.40-6.50); Neutrophils % (auto) 72.2 %; Platelet Count 176 K/uL (130-400); RDW Coefficient of Variation 23.2 % (11.5-14.5); RDW Standard Deviation 74.4 fL (36.4-46.3); Red Blood Count 4.61 M/uL (4.20-5.40); White Blood Count 6.66 K/ul (4.8-10.8)
[2022-12-04 07:47] LABS: Albumin Globulin Ratio 1.5 (0.9-2); Albumin Level 3.9 gm/dl (3.4-5.0); BUN Creatinine Ratio 14.8 (10-20); Bilirubin,Total 0.5 mg/dl (0.2-1.0); Calcium 8.9 mg/dl (8.6-10.3); Creatinine Clr Calc Pharmacy 38.4 ml/min; Est GFR (African American) 49.9 ml/min; Globulin 2.6 gm/dl (2.5-4.0); Magnesium 2.1 mg/dl (1.7-2.4); Total Protein 6.5 gm/dl (6.0-8.3)
[2022-12-04 08:08] LABS: Anisocytosis Present
[2022-12-04 08:09] LABS: Thyroid Stimulating Hormone 4.387 uIu/ml (0.300-4.500)
[2022-12-04 08:27] LABS: Appearance Urine Clear (Clear); Bilirubin Urine Negative (Negative); Blood Urine Negative (Negative); Color Urine Yellow; Glucose Urine UA 3+ (Negative); Ketones Urine Negative (Negative); Leukocyte Esterase Urine Negative (Negative); Nitrite Urine Negative (Negative); Protein Urine Negative (Negative); Specific Gravity Urine 1.016 (1.000-1.030); Urobilinogen Urine Negative (Negative); pH Urine 6.5 (4.5-7.5)
--- NOTE | 2022-12-04 08:43 | Emergency Department Note ---
Impression & Plan Acute pain of right hip, Fall, Ambulatory dysfunction ED Provider Note CHIEF COMPLAINT: Right hip pain after fall HISTORY OF PRESENT ILLNESS: This 87-year-old female patient past medical history of heart failure kidney disease, anemia, asthma, dementia aspiration, pulmonary aspergillosis, Mycobacterium, paroxysmal atrial fib, dyslipidemia, hypertension presents to the emergency department with complaints of right- sided hip pain. The patient apparently "slid to the floor" while in the bathroom and staff later found her. Patient is uncertain if she hit her head but was found awake and alert. Patient does not take any chronic anticoagulation but is on Plavix. She complains of pain in the right hip and buttock. REVIEW OF SYSTEMS: Unable to obtain a full review of systems secondary to the patient's confusion/poor memory. ALLERGIES: see below MEDICATIONS: see below PMH: see below SOCIAL HISTORY: see below DDx: Right hip fracture, lumbar radiculopathy, sacral fracture, pubic ramus fracture, electrolyte abnormality, poor conditioning among others. PHYSICAL EXAM: Vital signs reviewed. General: Well-appearing but chronically ill-appearing 87-year-old female, in no significant distress. HEENT: No scleral icterus, PERRLA, neck supple. Atraumatic. Cardiovascular: Regular rate and rhythm, no extra sounds. Pulmonary: Clear to auscultation bilaterally, normal work of breathing. Abdomen: Soft, nontender, nondistended, positive bowel sounds. Musculoskeletal: Atraumatic, no peripheral edema. Hips bilaterally with full ROM, nontender to palp of lumbar spine, mild discomfort but no instability to pelvic rocking. C spine is nontender and no evidence of head trauma Neurologic: Patient awake alert and pleasantly confused to events preceeding, speech is clear Skin: Warm, dry, no rash EMERGENCY DEPARTMENT COURSE/MDM: This pt was evaluated and appeared to be in some discomfort but no distress while resting. External medical records were reviewed. PE is fairly reassuring with ROM of bilateral hips, some pain with pelvic rocking but no instability. Lab work is reassuring. CT imaging is neg for acute traumatic finding. Pt was given po tylenol for pain. Pt was given an ambulatory trial by nursing which she failed, unable to bear weight on R without pain. Case was d/w hospitalist service for further management. MONITORING: An order for cardiac monitoring was placed and the patient is noted to be in a NSR at 78 beats per minute. RADIOLOGY: Head CT to my review reveals no acute IC abnl. Otherwise defer to rads Cervical spine and pelvis CT per rads reveals no evidence of acute fracture EKG: to my interpretation is a sinus bradycardia with first degree AV block at 56 bpm, LAF block, LVH, QTc 459, no PVC, no PAC. DISPOSITION: Admit Past Med/Surg History Medical History Acute on chronic systolic (congestive) heart failure Asthma Bronchiectasis Coronary artery disease Dyslipidemia Esophageal dysmotility Fall GERD (gastroesophageal reflux disease) Hypertension Ischemic cardiomyopathy Moderate persistent asthma Multiple sclerosis Myocardial infarct, old Osteoporosis Paroxysmal atrial fibrillation Peripheral neuropathy Toxic multinodul goiter Surgical History History of arthroscopic surgery of shoulder with rotator cuff repair History of cardiac catheterization History of heart artery stent History of tubal ligation Family History Father Myocardial infarction at age 46 from an [place] Mother , age 77 from [place] Myocardial infarction Social History Smoking Status: Former smoker Second Hand Exposure: No; Do You Dip or Chew Tobacco: No; Hx Alcohol Use: No Hx Substance Use: No Preferred Language: Persian Communication Ability: Impaired [facility] Required: No Beliefs That Will Affect Care: None marital status: Current Living Situation: Personal Care Facility Feels Safe at Home: Yes Assistive Devices: Walker Allergies Allergies Allergy/AdvReac Type Severity Reaction Status Date / Time alendronate sodium Allergy Unknown unknown Verified 12/04/22 07:59 aspirin Allergy Unknown Unknown Verified 12/04/22 07:59 metformin Allergy Unknown Unknown Verified 12/04/22 07:59 mirtazapine Allergy Unknown Unknown Verified 12/04/22 07:59 sertraline [From Zoloft] Allergy Unknown Unknown Verified 12/04/22 07:59 Home Meds Home Medications Medication Instructions Recorded Confirmed cholecalciferol (vitamin D3) 50 2,000 unit PO DAILY 01/08/18 12/04/22 mcg (2,000 unit) capsule clopidogrel 75 mg tablet (Plavix) 75 mg PO DAILY 01/08/18 12/04/22 montelukast 10 mg tablet 10 mg PO QAM 01/08/18 12/04/22 (Singulair) pantoprazole 40 mg tablet,delayed 40 mg PO QAM 01/08/18 12/04/22 release (Protonix) acetaminophen 325 mg tablet 650 mg PO Q4H PRN Pain 01/22/18 12/04/22 (Tylenol) albuterol sulfate 90 mcg/actuation 2 puff inhalation Q6H PRN 01/22/18 12/04/22 breath activated powder inhaler COUGH/WHEEZE bisacodyl 10 mg rectal suppository 10 mg ME Q72H PRN Constipation 01/22/18 12/04/22 (Dulcolax (bisacodyl)) coQ10 (ubiquinol) 200 mg capsule 200 mg PO . Q AFTERNOON 01/22/18 12/04/22 fluticasone furoate 100 1 inh inhalation QAM 01/22/18 12/04/22 mcg-vilanterol 25 mcg/dose inhalation powder (Breo Ellipta) pravastatin 40 mg tablet 40 mg PO QPM 01/22/18 12/04/22 bupropion HCl 150 mg tablet,12 hr 150 mg PO QAM 09/24/18 12/04/22 sustained-release (Wellbutrin SR) melatonin 5 mg tablet 5 mg PO HS 08/16/19 12/04/22 sennosides 8.6 mg tablet (Senokot) 8.6 mg PO BID 08/16/19 12/04/22 gabapentin 100 mg capsule 100 mg PO TID 09/17/21 12/04/22 trazodone 50 mg tablet 25 mg PO HS 09/17/21 12/04/22 venlafaxine 37.5 mg 37.5 mg PO QAM 09/17/21 12/04/22 capsule,extended release 24 hr (Effexor XR) cyanocobalamin (vitamin B-12) 1,000 mcg PO DAILY 10/15/22 12/04/22 1,000 mcg tablet ferrous sulfate 325 mg (65 mg 325 mg PO DAILY 10/15/22 12/04/22 iron) tablet empagliflozin 10 mg tablet 10 mg PO DAILY 12/04/22 12/04/22 (Jardiance) magnesium hydroxide 400 mg/5 mL 30 ml PO . Q48H PRN Constipation 12/04/22 12/04/22 oral suspension (Milk of Magnesia) nitroglycerin 0.4 mg sublingual 0.4 mg sublingual . @5MIN PRN 12/04/22 12/04/22 tablet Chest Pain polyethylene glycol 3350 17 17 g PO . QAM, MWFRI CONSTIPATION 12/04/22 12/04/22 gram/dose oral powder (Miralax) Previous Rx's Medication Instructions Recorded amiodarone 200 mg tablet 200 mg PO QAM #30 tabs 10/20/22 metoprolol succinate 25 mg 25 mg PO DAILY #30 tabs 10/20/22 tablet,extended release 24 hr bumetanide 1 mg tablet 0.5 mg PO DAILY #0 tabs 12/09/22 calcium carbonate 200 mg calcium 500 mg PO QID PRN #0 tabs 12/09/22 (500 mg) chewable tablet (Tums) losartan 25 mg tablet 25 mg PO DAILY #30 tabs 12/09/22 potassium chloride 20 mEq 20 meq PO DAILY #0 tabs 12/09/22 tablet,extended release(part/cryst) Results & Data (ED) Vital Signs Vital Signs - 24 hr 12/04/22 02:15 12/04/22 04:04 12/04/22 06:00 Temperature 36.4 C L Temperature Source Oral Pulse Rate 64 Pulse Rate [Right Finger] 78 72 Pulse Rhythm [Right Finger] Respiratory Rate 20 16 16 Respiratory Effort / Characteristics Respiratory Depth Blood Pressure 145/92 H Blood Pressure [Right Arm] 158/81 H 155/74 H Blood Pressure Mean 109 Blood Pressure Mean [Right Arm] 106 101 Pulse Oximetry 95 94 97 Oxygen Delivery Method Room Air Room Air Room Air Sepsis Recent Fever Within 48 Hours No Sepsis New/Unexplained Change in Mental Status No Sepsis Action Taken by Nursing No Action Required 12/04/22 07:06 12/04/22 07:10 12/04/22 08:19 Temperature Temperature Source Pulse Rate 58 L Pulse Rate [Right Finger] 58 L Pulse Rhythm [Right Finger] Regular Respiratory Rate 16 Respiratory Effort / Characteristics Non-Labored Respiratory Depth Normal Blood Pressure Blood Pressure [Right Arm] 161/83 H Blood Pressure Mean Blood Pressure Mean [Right Arm] 109 Pulse Oximetry 95 95 Oxygen Delivery Method Room Air Room Air Sepsis Recent Fever Within 48 Hours Sepsis New/Unexplained Change in Mental Status Sepsis Action Taken by Snf Medications Current Medication List: was personally reviewed by ri Laboratory Data Attestation: I reviewed the patient's lab results. 12/04/22 07:08 12/04/22 07:08 Lab Results 12/04/22 12/04/22 12/04/22 Range/Units 07:08 07:08 07:18 WBC 6.66 (4.8-10.8) K/ul RBC 4.61 (4.20-5.40) M/uL Hgb 12.7 (12.0-16.0) g/dl Hct 40.5 (37.0-47.0) % MCV 87.9 (80.0-100.0) fL MCH 27.5 (25.0-34.0) pg MCHC 31.4 L (32.0-36.0) g/dL RDW Std Deviation 74.4 H (36.4-46.3) fL RDW Coeff of Gracie 23.2 H (11.5-14.5) % Plt Count 176 (130-400) K/uL MPV 9.0 L (9.4-12.4) fL Immature Gran % (Auto) 0.3 % Neut % (Auto) 72.2 % Lymph % (Auto) 14.1 % Gila % (Auto) 8.4 % Eos % (Auto) 4.4 % Baso % (Auto) 0.6 % Neut # (Auto) 4.81 (1.40-6.50) K/uL Lymph # (Auto) 0.94 L (1.20-3.40) K/uL Gila # (Auto) 0.56 (0.11-0.59) K/uL Eos # (Auto) 0.29 (0.00-0.50) K/uL Baso # (Auto) 0.04 (0.00-0.20) K/uL Immature Gran # (Auto) 0.02 (0.01-0.20) K/uL Anisocytosis Present Sodium 138 (136-145) mmol/L Potassium 4.0 (3.5-5.1) mmol/L Chloride 105 (98-107) mmol/L Carbon Dioxide 27 (21-32) mmol/L Anion Gap 6 (3-11) BUN 17 (6-23) mg/dl Creatinine 1.15 (0.6-1.2) mg/dl Est Cr Clr Drug Dosing 38.4 ml/min Est GFR ( Amer) 49.9 ml/min Est GFR (Non-Af Amer) 43.0 ml/min BUN/Creatinine Ratio 14.8 (10-20) Glucose 113 H (70-99(Fasting)) mg/dl Calcium 8.9 (8.6-10.3) mg/dl Magnesium 2.1 (1.7-2.4) mg/dl Total Bilirubin 0.5 (0.2-1.0) mg/dl AST 15 (13-39) U/L ALT 12 (7-52) U/L Alkaline Phosphatase 92 (34-104) U/L Total Protein 6.5 (6.0-8.3) gm/dl Albumin 3.9 (3.4-5.0) gm/dl Globulin 2.6 (2.5-4.0) gm/dl Albumin/Globulin Ratio 1.5 (0.9-2) TSH 4.387 (0.300-4.500) uIu/ml Urine Color Urine Appearance (Clear) Urine pH (4.5-7.5) Ur Specific [place] (1.000-1.030) Urine Protein (Negative) Urine Glucose (UA) (Negative) Urine Ketones (Negative) Urine Blood (Negative) Urine Nitrite (Negative) Urine Bilirubin (Negative) Urine Urobilinogen (Negative) Ur Leukocyte Esterase (Negative) SARS-CoV-2, RNA, NAAT NEGATIVE (NEGATIVE) 12/04/22 12/05/22 12/05/22 Range/Units 08:08 06:50 06:50 WBC 4.72 L (4.8-10.8) K/ul RBC 4.49 (4.20-5.40) M/uL Hgb 12.3 (12.0-16.0) g/dl Hct 39.3 (37.0-47.0) % MCV 87.5 (80.0-100.0) fL MCH 27.4 (25.0-34.0) pg MCHC 31.3 L (32.0-36.0) g/dL RDW Std Deviation 73.0 H (36.4-46.3) fL RDW Coeff of Gracie 23.1 H (11.5-14.5) % Plt Count 173 (130-400) K/uL MPV 9.2 L (9.4-12.4) fL Immature Gran % (Auto) % Neut % (Auto) % Lymph % (Auto) % Gila % (Auto) % Eos % (Auto) % Baso % (Auto) % Neut # (Auto) (1.40-6.50) K/uL Lymph # (Auto) (1.20-3.40) K/uL Gila # (Auto) (0.11-0.59) K/uL Eos # (Auto) (0.00-0.50) K/uL Baso # (Auto) (0.00-0.20) K/uL Immature Gran # (Auto) (0.01-0.20) K/uL Anisocytosis Sodium 137 (136-145) mmol/L Potassium 4.2 (3.5-5.1) mmol/L Chloride 104 (98-107) mmol/L Carbon Dioxide 26 (21-32) mmol/L Anion Gap 7 (3-11) BUN 18 (6-23) mg/dl Creatinine 1.25 H (0.6-1.2) mg/dl Est Cr Clr Drug Dosing 35.2 ml/min Est GFR ( Amer) 45.1 ml/min Est GFR (Non-Af Amer) 38.9 ml/min BUN/Creatinine Ratio 14.4 (10-20) Glucose 95 (70-99(Fasting)) mg/dl Calcium 8.5 L (8.6-10.3) mg/dl Magnesium (1.7-2.4) mg/dl Total Bilirubin (0.2-1.0) mg/dl AST (13-39) U/L ALT (7-52) U/L Alkaline Phosphatase (34-104) U/L Total Protein (6.0-8.3) gm/dl Albumin (3.4-5.0) gm/dl Globulin (2.5-4.0) gm/dl Albumin/Globulin Ratio (0.9-2) TSH (0.300-4.500) uIu/ml Urine Color Yellow Urine Appearance Clear (Clear) Urine pH 6.5 (4.5-7.5) Ur Specific [place] 1.016 (1.000-1.030) Urine Protein Negative (Negative) Urine Glucose (UA) 3+ H (Negative) Urine Ketones Negative (Negative) Urine Blood Negative (Negative) Urine Nitrite Negative (Negative) Urine Bilirubin Negative (Negative) Urine Urobilinogen Negative (Negative) Ur Leukocyte Esterase Negative (Negative) SARS-CoV-2, RNA, NAAT (NEGATIVE) 12/06/22 12/06/22 Range/Units 06:05 06:05 WBC 4.64 L (4.8-10.8) K/ul RBC 4.84 (4.20-5.40) M/uL Hgb 13.4 (12.0-16.0) g/dl Hct 42.2 (37.0-47.0) % MCV 87.2 (80.0-100.0) fL MCH 27.7 (25.0-34.0) pg MCHC 31.8 L (32.0-36.0) g/dL RDW Std Deviation 73.8 H (36.4-46.3) fL RDW Coeff of Gracie 23.3 H (11.5-14.5) % Plt Count 198 (130-400) K/uL MPV 9.4 (9.4-12.4) fL Immature Gran % (Auto) % Neut % (Auto) % Lymph % (Auto) % [place]ila % (Auto) % Eos % (Auto) % Baso % (Auto) % Neut # (Auto) (1.40-6.50) K/uL Lymph # (Auto) (1.20-3.40) K/uL [place] # (Auto) (0.11-0.59) K/uL Eos # (Auto) (0.00-0.50) K/uL Baso # (Auto) (0.00-0.20) K/uL Immature Gran # (Auto) (0.01-0.20) K/uL Anisocytosis Sodium 138 (136-145) mmol/L Potassium 4.0 (3.5-5.1) mmol/L Chloride 103 (98-107) mmol/L Carbon Dioxide 28 (21-32) mmol/L Anion Gap 7 (3-11) BUN 17 (6-23) mg/dl Creatinine 1.27 H (0.6-1.2) mg/dl Est Cr Clr Drug Dosing 30.9 ml/min Est GFR ( Amer) 44.3 ml/min Est GFR (Non-Af Amer) 38.2 ml/min BUN/Creatinine Ratio 13.4 (10-20) Glucose 102 H (70-99(Fasting)) mg/dl Calcium 8.8 (8.6-10.3) mg/dl Magnesium (1.7-2.4) mg/dl Total Bilirubin (0.2-1.0) mg/dl AST (13-39) U/L ALT (7-52) U/L Alkaline Phosphatase (34-104) U/L Total Protein (6.0-8.3) gm/dl Albumin (3.4-5.0) gm/dl Globulin (2.5-4.0) gm/dl Albumin/Globulin Ratio (0.9-2) TSH (0.300-4.500) uIu/ml Urine Color Urine Appearance (Clear) Urine pH (4.5-7.5) Ur Specific [place] (1.000-1.030) Urine Protein (Negative) Urine Glucose (UA) (Negative) Urine Ketones (Negative) Urine Blood (Negative) Urine Nitrite (Negative) Urine Bilirubin (Negative) Urine Urobilinogen (Negative) Ur Leukocyte Esterase (Negative) SARS-CoV-2, RNA, NAAT (NEGATIVE) Administered Medications Discontinued Medications Acetaminophen (Acetaminophen 500 Mg Tab) 1,000 mg PO NOW STA Stop: 12/04/22 02:30 Last Admin: 12/04/22 02:33 Dose: 1,000 mg Documented By: ALB Acetaminophen (Acetaminophen 325 Mg Tab) 650 mg PO Q4H PRN PRN Reason: pain/fever Stop: 01/03/23 11:08 Last Admin: 12/07/22 04:14 Dose: 650 mg Documented By: Admin: 12/05/22 07:47 Dose: 650 mg Documented By: Admin: 12/04/22 16:40 Dose: 650 mg Documented By: Admin: 12/04/22 11:49 Dose: 650 mg Documented By: JHONATAN Amiodarone HCl (Amiodarone 200 Mg Tab) 200 mg PO QAM CHRISTO Stop: 01/03/23 11:08 Last Admin: 12/09/22 07:53 Dose: 200 mg Documented By: Admin: 12/08/22 08:27 Dose: 200 mg Documented By: Admin: 12/07/22 08:32 Dose: 200 mg Documented By: Admin: 12/06/22 09:17 Dose: 200 mg Documented By: Admin: 12/05/22 08:37 Dose: 200 mg Documented By: Admin: 12/04/22 12:47 Dose: 200 mg Documented By: JHONATAN Bumetanide (Bumetanide 1 Mg Tab) 0.5 mg PO DAILY CHRISTO Stop: 01/03/23 11:08 Last Admin: 12/09/22 07:53 Dose: 0.5 mg Documented By: Admin: 12/08/22 08:29 Dose: 0.5 mg Documented By: Admin: 12/07/22 08:34 Dose: 0.5 mg Documented By: Admin: 12/06/22 09:19 Dose: 0.5 mg Documented By: Admin: 12/05/22 08:34 Dose: 0.5 mg Documented By: Admin: 12/04/22 12:46 Dose: 0.5 mg Documented By: JHONATAN Bupropion HCl (Bupropion Sr 150 Mg Tabcr) 150 mg PO QAM CHRISTO Stop: 01/03/23 11:08 Last Admin: 12/09/22 07:54 Dose: 150 mg Documented By: Admin: 12/08/22 08:27 Dose: 150 mg Documented By: Admin: 12/07/22 08:34 Dose: 150 mg Documented By: Admin: 12/06/22 09:18 Dose: 150 mg Documented By: Admin: 12/05/22 08:37 Dose: 150 mg Documented By: Admin: 12/04/22 12:47 Dose: 150 mg Documented By: JHONATAN Clopidogrel Bisulfate (Clopidogrel Bisulfate 75 Mg Tab) 75 mg PO DAILY CHRISTO Stop: 01/03/23 11:08 Last Admin: 12/09/22 07:52 Dose: 75 mg Documented By: Admin: 12/08/22 08:27 Dose: 75 mg Documented By: Admin: 12/07/22 08:34 Dose: 75 mg Documented By: Admin: 12/06/22 09:18 Dose: 75 mg Documented By: Admin: 12/05/22 08:37 Dose: 75 mg Documented By: Admin: 12/04/22 12:46 Dose: 75 mg Documented By: JHONATAN Ferrous Sulfate (Ferrous Sulfate 325 Mg Tab) 325 mg PO DAILY [facility] Stop: 01/04/23 08:59 Last Admin: 12/09/22 07:53 Dose: 325 mg Documented By: Admin: 12/08/22 08:28 Dose: 325 mg Documented By: Admin: 12/07/22 08:33 Dose: 325 mg Documented By: Admin: 12/06/22 09:18 Dose: 325 mg Documented By: Admin: 12/05/22 08:37 Dose: 325 mg Documented By: JHONATAN Fluticasone/Vilanterol (Fluticasone/Vilanterol 100/25mcg 14 Puffs/Inhaler) 1 puffs INH QAM CHRISTO Stop: 01/03/23 11:08 Last Admin: 12/09/22 07:54 Dose: 1 puffs Documented By: Admin: 12/08/22 08:30 Dose: 1 puffs Documented By: Admin: 12/07/22 08:40 Dose: 1 puffs Documented By: Admin: 12/06/22 09:15 Dose: 1 puffs Documented By: Admin: 12/05/22 08:37 Dose: 1 puffs Documented By: Admin: 12/04/22 12:47 Dose: 1 puffs Documented By: JHONATAN Gabapentin (Gabapentin 100 Mg Cap) 100 mg PO TID CHRISTO Stop: 01/03/23 13:59 Last Admin: 12/09/22 07:52 Dose: 100 mg Documented By: Admin: 12/08/22 20:07 Dose: 100 mg Documented By: Admin: 12/08/22 14:00 Dose: Not Given Documented By: Admin: 12/08/22 08:27 Dose: 100 mg Documented By: Admin: 12/07/22 20:12 Dose: 100 mg Documented By: Admin: 12/07/22 13:31 Dose: 100 mg Documented By: Admin: 12/07/22 08:35 Dose: 100 mg Documented By: Admin: 12/06/22 19:55 Dose: 100 mg Documented By: Admin: 12/06/22 14:40 Dose: 100 mg Documented By: Admin: 12/06/22 09:16 Dose: 100 mg Documented By: Admin: 12/05/22 20:05 Dose: 100 mg Documented By: Admin: 12/05/22 13:51 Dose: 100 mg Documented By: Admin: 12/05/22 08:38 Dose: 100 mg Documented By: Admin: 12/04/22 22:17 Dose: 100 mg Documented By: Admin: 12/04/22 14:43 Dose: 100 mg Documented By: JHONATAN Guaifenesin (Guaifenesin 600 Mg Tabcr) 1,200 mg PO Q12 CHRISTO Stop: 01/07/23 20:59 Last Admin: 12/09/22 07:51 Dose: 1,200 mg Documented By: Admin: 12/09/22 00:46 Dose: Not Given Documented By: SLC Losartan Potassium (Losartan Potassium 25 Mg Tab) 25 mg PO DAILY CHRISTO Stop: 01/03/23 11:08 Last Admin: 12/09/22 07:53 Dose: 25 mg Documented By: Admin: 12/08/22 08:28 Dose: 25 mg Documented By: Admin: 12/07/22 08:33 Dose: 25 mg Documented By: Admin: 12/06/22 09:18 Dose: 25 mg Documented By: Admin: 12/05/22 08:36 Dose: 25 mg Documented By: Admin: 12/04/22 12:46 Dose: 25 mg Documented By: JHONATAN Melatonin (Melatonin 3 Mg Tab) 6 mg PO HS CHRISTO Stop: 01/03/23 20:59 Last Admin: 12/08/22 20:07 Dose: 6 mg Documented By: Admin: 12/07/22 20:12 Dose: 6 mg Documented By: Admin: 12/06/22 19:56 Dose: 6 mg Documented By: Admin: 12/05/22 20:05 Dose: 6 mg Documented By: Admin: 12/04/22 22:18 Dose: 6 mg Documented By: DODIE Metoprolol Succinate (Metoprolol Succ 25mg Ext Rel Tab) 25 mg PO DAILY CHRISTO Stop: 01/03/23 11:08 Last Admin: 12/09/22 07:54 Dose: 25 mg Documented By: Admin: 12/08/22 08:30 Dose: 25 mg Documented By: Admin: 12/07/22 08:35 Dose: 25 mg Documented By: Admin: 12/06/22 09:16 Dose: 25 mg Documented By: Admin: 12/05/22 08:37 Dose: 25 mg Documented By: Admin: 12/04/22 12:46 Dose: 25 mg Documented By: KJChelly Montelukast Sodium (Montelukast Sodium 10 Mg Tablet) 10 mg PO DAILY CHRISTO Stop: 01/03/23 11:08 Last Admin: 12/09/22 07:53 Dose: 10 mg Documented By: Admin: 12/08/22 08:28 Dose: 10 mg Documented By: Admin: 12/07/22 08:34 Dose: 10 mg Documented By: Admin: 12/06/22 09:18 Dose: 10 mg Documented By: Admin: 12/05/22 08:36 Dose: 10 mg Documented By: Admin: 12/04/22 12:46 Dose: 10 mg Documented By: JHONATAN Pantoprazole Sodium (Pantoprazole 40 Mg Tab) 40 mg PO QAM CHRISTO Stop: 01/03/23 11:08 Last Admin: 12/09/22 07:52 Dose: 40 mg Documented By: Admin: 12/08/22 08:31 Dose: 40 mg Documented By: Admin: 12/07/22 08:33 Dose: 40 mg Documented By: Admin: 12/06/22 09:17 Dose: 40 mg Documented By: Admin: 12/05/22 08:38 Dose: 40 mg Documented By: KJChelly Admin: 12/04/22 12:46 Dose: 40 mg Documented By: JHONATAN Potassium Chloride (Potassium Chloride Crtab 20 Meq Tabcr) 20 meq PO DAILY CHRISTO Stop: 01/03/23 11:08 Last Admin: 12/09/22 07:54 Dose: 20 meq Documented By: Admin: 12/08/22 08:28 Dose: 20 meq Documented By: Admin: 12/07/22 08:33 Dose: 20 meq Documented By: Admin: 12/06/22 09:16 Dose: 20 meq Documented By: Admin: 12/05/22 08:37 Dose: 20 meq Documented By: KJChelly Admin: 12/04/22 12:46 Dose: 20 meq Documented By: KJChelly Pravastatin Sodium (Pravastatin Sod 40 Mg Tab) 40 mg PO DAILY CHRISTO Stop: 01/03/23 11:08 Last Admin: 12/09/22 07:54 Dose: 40 mg Documented By: Admin: 12/08/22 08:28 Dose: 40 mg Documented By: Admin: 12/07/22 08:34 Dose: 40 mg Documented By: Admin: 12/06/22 09:17 Dose: 40 mg Documented By: Admin: 12/05/22 08:36 Dose: 40 mg Documented By: Admin: 12/04/22 12:46 Dose: 40 mg Documented By: JHONATAN Trazodone HCl (Trazodone Hcl 50 Mg Tab) 25 mg PO HS CHRISTO Stop: 01/03/23 20:59 Last Admin: 12/08/22 20:08 Dose: 25 mg Documented By: Admin: 12/07/22 20:12 Dose: 25 mg Documented By: Admin: 12/06/22 19:57 Dose: 25 mg Documented By: Admin: 12/05/22 20:05 Dose: 25 mg Documented By: Admin: 12/04/22 22:17 Dose: 25 mg Documented By: DODIE Venlafaxine HCl (Venlafaxine Hcl Xr 37.5 Mg Capxr) 37.5 mg PO QAM CH[facility]STO Stop: 01/03/23 11:08 Last Admin: 12/09/22 07:54 Dose: 37.5 mg Documented By: Admin: 12/08/22 08:28 Dose: 37.5 mg Documented By: Admin: 12/07/22 08:35 Dose: 37.5 mg Documented By: Admin: 12/06/22 09:16 Dose: 37.5 mg Documented By: Admin: 12/05/22 08:36 Dose: 37.5 mg Documented By: Admin: 12/04/22 12:46 Dose: 37.5 mg Documented By: JHONATAN Vitamin D (Cholecalciferol 1,000 Units 25 Mcg Tab) 2,000 units PO DAILY CHRISTO Stop: 01/04/23 08:59 Last Admin: 12/09/22 07:54 Dose: 2,000 units Documented By: Admin: 12/08/22 08:29 Dose: 2,000 units Documented By: Admin: 12/07/22 08:34 Dose: 2,000 units Documented By: Admin: 12/06/22 09:19 Dose: 2,000 units Documented By: Admin: 12/05/22 08:37 Dose: 2,000 units Documented By: [facility] Imaging Data Radiologist's Impression: Cervical Spine CT 12/04/22 02:27 Exam(s): CT C SPINE EXAM: CT Cervical Spine Without Intravenous Contrast CLINICAL HISTORY: Reason for exam: fall, head and neck pain. TECHNIQUE: Axial computed tomography images of the cervical spine without intravenous contrast. CTDI is 23.84 mGy and DLP is 503.81 mGy-cm. Automated exposure control was utilized for the study. A dose lowering technique was utilized adhering to the principles of ALARA. COMPARISON: No relevant prior studies available. FINDINGS: Vertebrae: Unremarkable. No acute fracture. Discs/spinal canal/neural foramina: Severe degenerative disc disease changes with neural foraminal narrowing seen most prominently at C4/5, and C5/6. Soft tissues: Unremarkable. Thyroid: There are bilateral thyroid nodules measuring up to 2.2 cm on the right and 2.4 cm on the left. IMPRESSION: 1. No acute fracture or dislocation 2. Bilateral multinodular goiter Electronically signed by: Abdiaziz Garcia MD 12/04/22 05:[address] 12/04/22 02:27 Exam(s): CT HEAD Without Contrast EXAM: CT Head Without Intravenous Contrast CLINICAL HISTORY: Reason for exam: fall, head and neck pain. TECHNIQUE: Axial computed tomography images of the head/brain without intravenous contrast. CTDI is 37.01 mGy and DLP is 624.41 mGy-cm. Automated exposure control was utilized for the study. A dose lowering technique was utilized adhering to the principles of ALARA. COMPARISON: 02/15/22 FINDINGS: Brain: Chronic periventricular ischemic demyelination changes seen due to small vessel disease. No hemorrhage. Ventricles: Unremarkable. No ventriculomegaly. Bones/joints: Unremarkable. No acute fracture. Soft tissues: Unremarkable. Sinuses: Unremarkable as visualized. No acute sinusitis. Mastoid air cells: Unremarkable as visualized. No mastoid effusion. IMPRESSION: No acute intracranial abnormality Electronically signed by: Abdiaziz Garcia MD 12/04/22 05:[address] 12/04/22 02:27 Exam(s): CT PELVIS Without Contrast EXAM: CT Pelvis Without Intravenous Contrast CLINICAL HISTORY: Reason for exam: R hip pain, fall. TECHNIQUE: Axial computed tomography images of the pelvis without intravenous contrast. CTDI is 30.31 mGy and DLP is 894.73 mGy-cm. Automated exposure control was utilized for the study. A dose lowering technique was utilized adhering to the principles of ALARA. COMPARISON: No relevant prior studies available. FINDINGS: Bladder: Unremarkable. No stones. Reproductive: Unremarkable as visualized. Bones/joints: The bones are osteopenic. Sclerotic bone island seen in the right ischium. No acute fracture or dislocation seen at the right. Moderate degenerative facet joint arthropathy changes seen in the visualized lower lumbar spine. Vasculature: Unremarkable. No lower abdominal aortic aneurysm. Lymph nodes: Unremarkable. No enlarged lymph nodes. IMPRESSION: No acute fracture Electronically signed by: Abdiaziz Garcia MD 12/04/22 05:56 AM Discharge Plan Visit Data Chief Complaint: Hip Pain Stated Complaint: RIGHT PELVIC/BUTTOCKS PAIN ED Provider: Ana Jaeger Discharge Problem: Acute pain of right hip, Fall, Ambulatory dysfunction Patient Disposition: Admitted As Inpatient Discharge Instructions Interventions: ED Discharge Assessment Last Done: 12/04/22 11:00
[2022-12-04] MEDS ORDERED: ONDANSETRON INJ 2 MG/ML 2 ML VIAL IV PRN (11:09)
[2022-12-04] MEDS ORDERED: ALBUT/IPRATROP 3MG/0.5MG NEB 3 ML VIAL INH PRN (11:09)
--- NOTE | 2022-12-04 11:13 | History & Physical Report ---
Date of Service December 04, 2022 Assessment & Plan (1) Fall: Plan: Patient presents from [facility] following a mechanical fall States she was not on the floor for a long time We will obtain CT PK to check for rhabdo Imaging studies did not show any evidence of dislocation or fractures Only reports some pain in the hip. No pain control while in the hospital Physical therapy (2) HFrEF (heart failure with reduced ejection fraction): Plan: Patient follows up with the heart failure clinic Currently appears compensated We will resume her home medications Monitor input and output, daily weight (3) Atrial fibrillation: Plan: Currently rate controlled Resume her home medications I do not see any anticoagulants in her home meds, probably due to previous bleed (4) CKD (chronic kidney disease) stage 3, GFR 30-59 ml/min: Plan: Kidneys are currently stable now Monitor Avoid nephrotoxic's (5) Dementia: Plan Awaiting for physical therapy evaluation Full code DVT prophylaxis SCDs Admission and Anticipated Discharge Date Admission Date: December 04, 2022 History of Present Illness Chief Complaint: Fall Primary Care Provider: [facility] This is an 87-year-old female resident of [facility] with a history of congestive heart failure, atrial fibrillation, CKD stage III who presents following a mechanical fall. According to the patient she was in the hallway today when she fell. She denied losing muscle tone or sleeping but she shared that she just fell. This is the second time of that time she has been following in the past few months. She states was not on the floor for a long time before somebody came to help her. Upon arrival to the emergency department imaging studies were done CT scan of the head cervical lumbar, there was no acute fracture or dislocation. Basic labs CBC BMP were within normal limits. Patient will be admitted to the hospital physical therapy will be consulted. Allergies Allergy/AdvReac Type Severity Reaction Status Date / Time alendronate sodium Allergy Unknown unknown Verified 12/04/22 07:59 aspirin Allergy Unknown Unknown Verified 12/04/22 07:59 metformin Allergy Unknown Unknown Verified 12/04/22 07:59 mirtazapine Allergy Unknown Unknown Verified 12/04/22 07:59 sertraline [From Zoloft] Allergy Unknown Unknown Verified 12/04/22 07:59 Home Medications Medication Instructions Recorded Confirmed Type cholecalciferol (vitamin D3) 50 2,000 unit PO DAILY 01/08/18 12/04/22 History mcg (2,000 unit) capsule clopidogrel 75 mg tablet (Plavix) 75 mg PO DAILY 01/08/18 12/04/22 History montelukast 10 mg tablet 10 mg PO QAM 01/08/18 12/04/22 History (Singulair) pantoprazole 40 mg tablet,delayed 40 mg PO QAM 01/08/18 12/04/22 History release (Protonix) acetaminophen 325 mg tablet 650 mg PO Q4H PRN Pain 01/22/18 12/04/22 History (Tylenol) albuterol sulfate 90 mcg/actuation 2 puff inhalation Q6H PRN 01/22/18 12/04/22 History breath activated powder inhaler COUGH/WHEEZE bisacodyl 10 mg rectal suppository 10 mg NM Q72H PRN Constipation 01/22/18 12/04/22 History (Dulcolax (bisacodyl)) coQ10 (ubiquinol) 200 mg capsule 200 mg PO . Q AFTERNOON 01/22/18 12/04/22 History fluticasone furoate 100 1 inh inhalation QAM 01/22/18 12/04/22 History mcg-vilanterol 25 mcg/dose inhalation powder (Breo Ellipta) pravastatin 40 mg tablet 40 mg PO QPM 01/22/18 12/04/22 History bupropion HCl 150 mg tablet,12 hr 150 mg PO QAM 09/24/18 12/04/22 History sustained-release (Wellbutrin SR) melatonin 5 mg tablet 5 mg PO HS 08/16/19 12/04/22 History sennosides 8.6 mg tablet (Senokot) 8.6 mg PO BID 08/16/19 12/04/22 History gabapentin 100 mg capsule 100 mg PO TID 09/17/21 12/04/22 History trazodone 50 mg tablet 25 mg PO HS 09/17/21 12/04/22 History venlafaxine 37.5 mg 37.5 mg PO QAM 09/17/21 12/04/22 History capsule,extended release 24 hr (Effexor XR) acetaminophen 325 mg tablet 650 mg PO Q4H PRN Fever 10/15/22 12/04/22 History cyanocobalamin (vitamin B-12) 1,000 mcg PO DAILY 10/15/22 12/04/22 History 1,000 mcg tablet ferrous sulfate 325 mg (65 mg 325 mg PO DAILY 10/15/22 12/04/22 History iron) tablet amiodarone 200 mg tablet 200 mg PO QAM #30 tabs 10/20/22 12/04/22 Rx metoprolol succinate 25 mg 25 mg PO DAILY #30 tabs 10/20/22 12/04/22 Rx tablet,extended release 24 hr empagliflozin 10 mg tablet 10 mg PO DAILY 12/04/22 12/04/22 History (Jardiance) magnesium hydroxide 400 mg/5 mL 30 ml PO . Q48H PRN Constipation 12/04/22 12/04/22 History oral suspension (Milk of Magnesia) nitroglycerin 0.4 mg sublingual 0.4 mg sublingual . @5MIN PRN 12/04/22 12/04/22 History tablet Chest Pain polyethylene glycol 3350 17 17 g PO . QAM, MWFRI CONSTIPATION 12/04/22 12/04/22 History gram/dose oral powder (Miralax) sacubitril 24 mg-valsartan 26 mg 1 tab PO BID 12/04/22 12/04/22 History tablet (Entresto) Past Med/Surg History Medical History Asthma Bronchiectasis Coronary artery disease Dyslipidemia Esophageal dysmotility GERD (gastroesophageal reflux disease) Hypertension Ischemic cardiomyopathy Moderate persistent asthma Multiple sclerosis Myocardial infarct, old Osteoporosis Paroxysmal atrial fibrillation Peripheral neuropathy Toxic multinodul goiter Surgical History History of arthroscopic surgery of shoulder History of cardiac catheterization History of heart artery stent History of tubal ligation Family History Father Myocardial infarction at age 46 from an [place] Mother , age 77 from [place] Myocardial infarction Social History Smoking Status: Never smoker Second Hand Exposure: No; Do You Dip or Chew Tobacco: No; Hx Alcohol Use: No Hx Substance Use: No Preferred Language: Azeri Communication Ability: Effective Clinical Office Technician Required: No Beliefs That Will Affect Care: None marital status: Current Living Situation: Personal Care Facility Feels Safe at Home: Yes Assistive Devices: Denture - Lower, Glasses, Hearing Aid - Left, Hearing Aid - Right and Walker Review of Systems Review of Systems: All systems reviewed are negative, apart from the ones contained in the history. Physical Exam Physical Exam: The patient is awake, alert and oriented 3, well developed and well nourished, normocephalic and atraumatic, lying in bed and in no acute distress. HEENT--PERRL, EOMI, mucous membranes and oropharynx mildly dry Neck--supple. No JVD. No bruits. Thyroid normal, trachea midline, no adenopathy. Heart--normal S1 and S2. No murmurs, rubs or gallops. Lungs--clear bilaterally, no respiratory distress, no accessory muscle use. Abdomen--normal bowel sounds and soft. Extremities--no cyanosis or clubbing. No edema. Dermatologic--normal skin turgor, normal color, no abnormal lymph nodes, no rash. Neurologic--cranial nerves II through XII grossly intact. Rheumatologic--normal range of motion. Psychiatric--normal affect. Results & Data Results & Data Vital Signs (Past 12 Hours) Vital Signs Temp Pulse Pulse Resp BP BP Pulse Ox 12/04/22 09:00 59 L 16 158/79 H 95 12/04/22 08:19 58 L 12/04/22 07:10 58 L 16 161/83 H 95 12/04/22 07:06 95 12/04/22 06:00 72 16 155/74 H 97 12/04/22 04:04 78 16 158/81 H 94 12/04/22 02:15 97.5 F L 64 20 145/92 H 95 O2 Del Method 12/04/22 09:00 Room Air 12/04/22 08:19 12/04/22 07:10 Room Air 12/04/22 07:06 Room Air 12/04/22 06:00 Room Air 12/04/22 04:04 Room Air 12/04/22 02:15 Room Air PG Care Time/CCT Total # of Minutes Spent Total Time Spent with Patient: Total time spent is greater than 50% in coordination of care (as documented) at patient's floor/unit and/or counseling patient: Coding Level of Care Code 24225 INT INP/OBS CARE 3/75MIN Diagnoses Fall W19.XXXA HFrEF (heart failure with reduced ejection fraction) I50.20 Atrial fibrillation I48.91 CKD (chronic kidney disease) stage 3, GFR 30-59 ml/min N18.30 Dementia F03.90 Time Spent (min) 75
[2022-12-04] MEDS ORDERED: CALCIUM CARBONATE 500 MG CHEWABLE TAB PO PRN (11:31)
[2022-12-04] MEDS: ACETAMINOPHEN 325 MG TAB PO PRN ×2 (11:49→16:40)
[2022-12-04] MEDS: VENLAFAXINE HCL XR 37.5 MG CAPXR PO SCH (12:46)
[2022-12-04] MEDS: LOSARTAN POTASSIUM 25 MG TAB PO SCH (12:46)
[2022-12-04] MEDS: BUMETANIDE 1 MG TAB PO SCH (12:46)
[2022-12-04] MEDS: POTASSIUM CHLORIDE CRTAB 20 MEQ TABCR PO SCH (12:46)
[2022-12-04] MEDS: PRAVASTATIN SOD 40 MG TAB PO SCH (12:46)
[2022-12-04] MEDS: METOPROLOL SUCC 25MG EXT REL TAB PO SCH (12:46)
[2022-12-04] MEDS: MONTELUKAST SODIUM 10 MG TABLET PO SCH (12:46)
[2022-12-04] MEDS: PANTOprazole 40 MG TAB PO SCH (12:46)
[2022-12-04] MEDS: CLOPIDOGREL BISULFATE 75 MG TAB PO SCH (12:46)
[2022-12-04] MEDS: FLUTICASONE/VILANTEROL 100/25MCG 14 PUFFS/INHALER INH SCH (12:47)
[2022-12-04] MEDS: buPROPion SR 150 MG TABCR PO SCH (12:47)
[2022-12-04] MEDS: AMIODARONE 200 MG TAB PO SCH (12:47)
[2022-12-04] MEDS: GABAPENTIN 100 MG CAP PO SCH ×2 (14:43→22:17)
[2022-12-04] MEDS: traZODone HCL 50 MG TAB PO SCH (22:17)
[2022-12-04] MEDS: MELATONIN 3 MG TAB PO SCH (22:18)
[2022-12-05] MEDS: ACETAMINOPHEN 325 MG TAB PO PRN (07:47)
[2022-12-05 07:51] LABS: Hematocrit (blood only) 39.3 % (37.0-47.0); Hemoglobin 12.3 g/dl (12.0-16.0); Mean Corpuscular Hemoglobin 27.4 pg (25.0-34.0); Mean Corpuscular Hgb Conc 31.3 g/dL (32.0-36.0); Mean Corpuscular Volume 87.5 fL (80.0-100.0); Mean Platelet Volume 9.2 fL (9.4-12.4); Platelet Count 173 K/uL (130-400); RDW Coefficient of Variation 23.1 % (11.5-14.5); Red Blood Count 4.49 M/uL (4.20-5.40); White Blood Count 4.72 K/ul (4.8-10.8)
[2022-12-05 08:13] LABS: BUN Creatinine Ratio 14.4 (10-20); Calcium 8.5 mg/dl (8.6-10.3); Creatinine Clr Calc Pharmacy 35.2 ml/min; Est GFR (African American) 45.1 ml/min; Est GFR (Non-African American) 38.9 ml/min; Potassium 4.2 mmol/L (3.5-5.1)
[2022-12-05] MEDS: BUMETANIDE 1 MG TAB PO SCH (08:34)
[2022-12-05] MEDS: MONTELUKAST SODIUM 10 MG TABLET PO SCH (08:36)
[2022-12-05] MEDS: LOSARTAN POTASSIUM 25 MG TAB PO SCH (08:36)
[2022-12-05] MEDS: VENLAFAXINE HCL XR 37.5 MG CAPXR PO SCH (08:36)
[2022-12-05] MEDS: PRAVASTATIN SOD 40 MG TAB PO SCH (08:36)
[2022-12-05] MEDS: CHOLECALCIFEROL 1,000 UNITS 25 MCG TAB PO SCH (08:37)
[2022-12-05] MEDS: FLUTICASONE/VILANTEROL 100/25MCG 14 PUFFS/INHALER INH SCH (08:37)
[2022-12-05] MEDS: METOPROLOL SUCC 25MG EXT REL TAB PO SCH (08:37)
[2022-12-05] MEDS: AMIODARONE 200 MG TAB PO SCH (08:37)
[2022-12-05] MEDS: POTASSIUM CHLORIDE CRTAB 20 MEQ TABCR PO SCH (08:37)
[2022-12-05] MEDS: FERROUS SULFATE 325 MG TAB PO SCH (08:37)
[2022-12-05] MEDS: buPROPion SR 150 MG TABCR PO SCH (08:37)
[2022-12-05] MEDS: CLOPIDOGREL BISULFATE 75 MG TAB PO SCH (08:37)
[2022-12-05] MEDS: PANTOprazole 40 MG TAB PO SCH (08:38)
[2022-12-05] MEDS: GABAPENTIN 100 MG CAP PO SCH ×3 (08:38→20:05)
--- NOTE | 2022-12-05 13:52 | Hospitalist Progress Note ---
Date of Service December 05, 2022 Assessment & Plan (1) Fall: Plan: Patient presents from [facility] following a mechanical fall States she was not on the floor for a long time Imaging studies did not show any evidence of dislocation or fractures Only reports some pain in the hip. Pain control while in the hospital Physical therapy Hopefully return to [facility] with continued PT (2) HFrEF (heart failure with reduced ejection fraction): Plan: Patient follows up with the heart failure clinic Currently appears compensated We will resume her home medications Monitor input and output, daily weight (3) Atrial fibrillation: Plan: Currently rate controlled Resume her home medications I do not see any anticoagulants in her home meds, probably due to previous bleed (4) CKD (chronic kidney disease) stage 3, GFR 30-59 ml/min: Plan: Kidneys are currently stable now Monitor Avoid nephrotoxic's (5) Dementia: Plan Hopefully return to [facility] tomorrow with continued PT Full code DVT prophylaxis SCDs Admission and Anticipated Discharge Date Admission Date: December 04, 2022 Subjective patient seen and examined, participating in PT Review of Systems Review of Systems: All systems reviewed are negative, apart from the ones contained in the history. Physical Exam Physical Exam: The patient is awake, alert and oriented 3, well developed and well nourished, normocephalic and atraumatic, lying in bed and in no acute distress. HEENT--PERRL, EOMI, mucous membranes and oropharynx mildly dry Neck--supple. No JVD. No bruits. Thyroid normal, trachea midline, no adenopathy. Heart--normal S1 and S2. No murmurs, rubs or gallops. Lungs--clear bilaterally, no respiratory distress, no accessory muscle use. Abdomen--normal bowel sounds and soft. Extremities--no cyanosis or clubbing. No edema. Dermatologic--normal skin turgor, normal color, no abnormal lymph nodes, no rash. Neurologic--cranial nerves II through XII grossly intact. Rheumatologic--normal range of motion. Psychiatric--normal affect. Results & Data Results & Data Vital Signs (Past 12 Hours) Vital Signs Temp Pulse Pulse Resp BP Pulse Ox O2 Del Method 12/05/22 10:54 97.5 F L 67 16 116/64 94 Room Air 12/05/22 08:38 97.3 F L 66 16 149/75 H 92 Room Air 12/05/22 06:00 65 12/05/22 02:50 98.8 F 68 18 138/57 L 93 Room Air PG Care Time/CCT Total # of Minutes Spent Total Time Spent with Patient: Total time spent is greater than 50% in coordination of care (as documented) at patient's floor/unit and/or counseling patient: Coding Level of Care Code 38278 SUB INP/OBS CARE 2/35MIN Diagnoses Fall W19.XXXA HFrEF (heart failure with reduced ejection fraction) I50.20 Atrial fibrillation I48.91 CKD (chronic kidney disease) stage 3, GFR 30-59 ml/min N18.30 Dementia F03.90 Time Spent (min) 35
--- NOTE | 2022-12-05 14:57 | Electrocardiogram Report ---
Test Reason : Blood Pressure : / mmHG Vent. Rate : 056 BPM Atrial Rate : 056 BPM P-R Int : 260 ms QRS Dur : 106 ms QT Int : 476 ms P-R-T Axes : 061 -58 070 degrees QTc Int : 459 ms Sinus bradycardia with 1st degree A-V block Left anterior fascicular block Left ventricular hypertrophy Poor R wave progression, consider anterior IN vs. lead placement vs. LVH Abnormal ECG When compared with ECG of 18-OCT-2022 12:04, No significant change was found Confirmed by Estiven Gibbons ([id number]) on 12/05/2022 2:57:12 PM Referred By: [facility] Confirmed By:Yan Gibbons
[2022-12-05] MEDS: traZODone HCL 50 MG TAB PO SCH (20:05)
[2022-12-05] MEDS: MELATONIN 3 MG TAB PO SCH (20:05)
[2022-12-06 06:59] LABS: Hematocrit (blood only) 42.2 % (37.0-47.0); Hemoglobin 13.4 g/dl (12.0-16.0); Mean Corpuscular Hemoglobin 27.7 pg (25.0-34.0); Mean Corpuscular Hgb Conc 31.8 g/dL (32.0-36.0); Mean Corpuscular Volume 87.2 fL (80.0-100.0); Mean Platelet Volume 9.4 fL (9.4-12.4); Platelet Count 198 K/uL (130-400); RDW Coefficient of Variation 23.3 % (11.5-14.5); RDW Standard Deviation 73.8 fL (36.4-46.3); Red Blood Count 4.84 M/uL (4.20-5.40); White Blood Count 4.64 K/ul (4.8-10.8)
[2022-12-06 07:13] LABS: BUN Creatinine Ratio 13.4 (10-20); Calcium 8.8 mg/dl (8.6-10.3); Creatinine Clr Calc Pharmacy 30.9 ml/min; Est GFR (African American) 44.3 ml/min; Est GFR (Non-African American) 38.2 ml/min
[2022-12-06] MEDS: FLUTICASONE/VILANTEROL 100/25MCG 14 PUFFS/INHALER INH SCH (09:15)
[2022-12-06] MEDS: METOPROLOL SUCC 25MG EXT REL TAB PO SCH (09:16)
[2022-12-06] MEDS: POTASSIUM CHLORIDE CRTAB 20 MEQ TABCR PO SCH (09:16)
[2022-12-06] MEDS: VENLAFAXINE HCL XR 37.5 MG CAPXR PO SCH (09:16)
[2022-12-06] MEDS: GABAPENTIN 100 MG CAP PO SCH ×3 (09:16→19:55)
[2022-12-06] MEDS: PRAVASTATIN SOD 40 MG TAB PO SCH (09:17)
[2022-12-06] MEDS: PANTOprazole 40 MG TAB PO SCH (09:17)
[2022-12-06] MEDS: AMIODARONE 200 MG TAB PO SCH (09:17)
[2022-12-06] MEDS: CLOPIDOGREL BISULFATE 75 MG TAB PO SCH (09:18)
[2022-12-06] MEDS: buPROPion SR 150 MG TABCR PO SCH (09:18)
[2022-12-06] MEDS: LOSARTAN POTASSIUM 25 MG TAB PO SCH (09:18)
[2022-12-06] MEDS: MONTELUKAST SODIUM 10 MG TABLET PO SCH (09:18)
[2022-12-06] MEDS: FERROUS SULFATE 325 MG TAB PO SCH (09:18)
[2022-12-06] MEDS: CHOLECALCIFEROL 1,000 UNITS 25 MCG TAB PO SCH (09:19)
[2022-12-06] MEDS: BUMETANIDE 1 MG TAB PO SCH (09:19)
--- NOTE | 2022-12-06 11:37 | Hospitalist Progress Note ---
Date of Service December 06, 2022 Assessment & Plan (1) Fall: Plan: Patient presents from [facility] following a mechanical fall States she was not on the floor for a long time Imaging studies did not show any evidence of dislocation or fractures Only reports some pain in the hip. Pain control while in the hospital Physical therapy recommends rehab Hopefully return to [facility] for rehab, She is medically stable for rehab (2) HFrEF (heart failure with reduced ejection fraction): Plan: Patient follows up with the heart failure clinic Currently appears compensated We will resume her home medications Monitor input and output, daily weight (3) Atrial fibrillation: Plan: Currently rate controlled Resume her home medications I do not see any anticoagulants in her home meds, probably due to previous bleed (4) CKD (chronic kidney disease) stage 3, GFR 30-59 ml/min: Plan: Kidneys are currently stable now Monitor Avoid nephrotoxic's (5) Dementia: Plan Hopefully return to [facility] with rehab. She is medically stable for rehab Full code DVT prophylaxis SCDs Admission and Anticipated Discharge Date Admission Date: December 06, 2022 Subjective patient seen and examined, participating in PT, says her butt still hurts a little Review of Systems Review of Systems: All systems reviewed are negative, apart from the ones contained in the history. Physical Exam Physical Exam: The patient is awake, alert and oriented 3, well developed and well nourished, normocephalic and atraumatic, lying in bed and in no acute distress. HEENT--PERRL, EOMI, mucous membranes and oropharynx mildly dry Neck--supple. No JVD. No bruits. Thyroid normal, trachea midline, no adenopathy. Heart--normal S1 and S2. No murmurs, rubs or gallops. Lungs--clear bilaterally, no respiratory distress, no accessory muscle use. Abdomen--normal bowel sounds and soft. Extremities--no cyanosis or clubbing. No edema. Dermatologic--normal skin turgor, normal color, no abnormal lymph nodes, no rash. Neurologic--cranial nerves II through XII grossly intact. Rheumatologic--normal range of motion. Psychiatric--normal affect. Results & Data Results & Data Vital Signs (Past 12 Hours) Vital Signs Temp Pulse Pulse Resp BP BP Pulse Ox 12/06/22 07:54 97.7 F 51 L 16 155/73 H 94 12/06/22 06:05 65 12/06/22 03:10 98.2 F 70 16 127/74 92 12/06/22 00:00 98.2 F 67 18 127/70 93 O2 Del Method 12/06/22 07:54 Room Air 12/06/22 06:05 12/06/22 03:10 Room Air 12/06/22 00:00 Room Air PG Care Time/CCT Total # of Minutes Spent Total Time Spent with Patient: Total time spent is greater than 50% in coordination of care (as documented) at patient's floor/unit and/or counseling patient: Coding Level of Care Code 67587 SUB INP/OBS CARE 2/35MIN Diagnoses Fall W19.XXXA HFrEF (heart failure with reduced ejection fraction) I50.20 Atrial fibrillation I48.91 CKD (chronic kidney disease) stage 3, GFR 30-59 ml/min N18.30 Dementia F03.90 Time Spent (min) 35
[2022-12-06] MEDS: MELATONIN 3 MG TAB PO SCH (19:56)
[2022-12-06] MEDS: traZODone HCL 50 MG TAB PO SCH (19:57)
[2022-12-07] MEDS: ACETAMINOPHEN 325 MG TAB PO PRN (04:14)
[2022-12-07 07:47] LABS: Mean Corpuscular Hemoglobin 27.9 pg (25.0-34.0); Mean Corpuscular Hgb Conc 31.7 g/dL (32.0-36.0); Mean Platelet Volume 9.8 fL (9.4-12.4); Platelet Count 191 K/uL (130-400); RDW Standard Deviation 73.4 fL (36.4-46.3); Red Blood Count 4.66 M/uL (4.20-5.40); White Blood Count 5.08 K/ul (4.8-10.8)
[2022-12-07 08:06] LABS: BUN Creatinine Ratio 15.8 (10-20); Calcium 8.8 mg/dl (8.6-10.3); Creatinine Clr Calc Pharmacy 29.5 ml/min; Est GFR (African American) 41.8 ml/min; Est GFR (Non-African American) 36.1 ml/min; Potassium 4.2 mmol/L (3.5-5.1)
[2022-12-07] MEDS: AMIODARONE 200 MG TAB PO SCH (08:32)
[2022-12-07] MEDS: LOSARTAN POTASSIUM 25 MG TAB PO SCH (08:33)
[2022-12-07] MEDS: PANTOprazole 40 MG TAB PO SCH (08:33)
[2022-12-07] MEDS: POTASSIUM CHLORIDE CRTAB 20 MEQ TABCR PO SCH (08:33)
[2022-12-07] MEDS: FERROUS SULFATE 325 MG TAB PO SCH (08:33)
[2022-12-07] MEDS: BUMETANIDE 1 MG TAB PO SCH (08:34)
[2022-12-07] MEDS: buPROPion SR 150 MG TABCR PO SCH (08:34)
[2022-12-07] MEDS: CLOPIDOGREL BISULFATE 75 MG TAB PO SCH (08:34)
[2022-12-07] MEDS: MONTELUKAST SODIUM 10 MG TABLET PO SCH (08:34)
[2022-12-07] MEDS: CHOLECALCIFEROL 1,000 UNITS 25 MCG TAB PO SCH (08:34)
[2022-12-07] MEDS: PRAVASTATIN SOD 40 MG TAB PO SCH (08:34)
[2022-12-07] MEDS: GABAPENTIN 100 MG CAP PO SCH ×3 (08:35→20:12)
[2022-12-07] MEDS: METOPROLOL SUCC 25MG EXT REL TAB PO SCH (08:35)
[2022-12-07] MEDS: VENLAFAXINE HCL XR 37.5 MG CAPXR PO SCH (08:35)
[2022-12-07] MEDS: FLUTICASONE/VILANTEROL 100/25MCG 14 PUFFS/INHALER INH SCH (08:40)
[2022-12-07] MEDS: traZODone HCL 50 MG TAB PO SCH (20:12)
[2022-12-07] MEDS: MELATONIN 3 MG TAB PO SCH (20:12)
--- NOTE | 2022-12-08 00:06 | Hospitalist Progress Note ---
Date of Service December 07, 2022 Assessment & Plan (1) Fall: Plan: Patient presents from [facility] following a mechanical fall States she was not on the floor for a long time Imaging studies did not show any evidence of dislocation or fractures Only reports some pain in the hip. Pain control while in the hospital Physical therapy recommends rehab Hopefully return to [facility] for rehab, She is medically stable for rehab. Patient will need to be here for 3 midnights under full admission before discharge. (2) HFrEF (heart failure with reduced ejection fraction): Plan: Patient follows up with the heart failure clinic Currently appears compensated We will resume her home medications Monitor input and output, daily weight (3) Atrial fibrillation: Plan: Currently rate controlled Resume her home medications I do not see any anticoagulants in her home meds, probably due to previous bleed (4) CKD (chronic kidney disease) stage 3, GFR 30-59 ml/min: Plan: Kidneys are currently stable now Monitor Avoid nephrotoxic's (5) Dementia: Plan Hopefully return to [facility] with rehab. She is medically stable for rehab Full code DVT prophylaxis SCDs Admission and Anticipated Discharge Date Admission Date: December 06, 2022 Subjective 87 yo female reports no new symptoms. Review of Systems Review of Systems: All systems reviewed & are unremarkable except as noted in HPI & below Physical Exam Physical Exam: The patient is awake, alert and oriented 3, well developed and well nourished, normocephalic and atraumatic, lying in bed and in no acute distress. HEENT--PERRL, EOMI, mucous membranes and oropharynx mildly dry Neck--supple. No JVD. No bruits. Thyroid normal, trachea midline, no adenopathy. Heart--normal S1 and S2. No murmurs, rubs or gallops. Lungs--clear bilaterally, no respiratory distress, no accessory muscle use. Abdomen--normal bowel sounds and soft. Extremities--no cyanosis or clubbing. No edema. Dermatologic--normal skin turgor, normal color, no abnormal lymph nodes, no rash. Neurologic--cranial nerves II through XII grossly intact. Rheumatologic--normal range of motion. Psychiatric--normal affect. Results & Data Results & Data Vital Signs (Past 12 Hours) Vital Signs Temp Pulse Pulse Resp BP Pulse Ox O2 Del Method 12/07/22 22:00 36.8 C 65 18 115/68 92 Room Air 12/07/22 22:29 Room Air 12/07/22 19:00 36.6 C 58 L 20 144/70 H 92 Room Air 12/07/22 16:21 36.6 C 61 16 125/67 93 Room Air 12/07/22 13:59 63 PG Care Time/CCT Total # of Minutes Spent Total Time Spent with Patient: Total time spent is greater than 50% in coordination of care (as documented) at patient's floor/unit and/or counseling patient: Coding Level of Care Code 03671 SUB INP/OBS CARE 2/35MIN Diagnoses Fall W19.XXXA HFrEF (heart failure with reduced ejection fraction) I50.20 Atrial fibrillation I48.91 CKD (chronic kidney disease) stage 3, GFR 30-59 ml/min N18.30 Dementia F03.90
[2022-12-08] MEDS: GABAPENTIN 100 MG CAP PO SCH ×3 (08:27→20:07)
[2022-12-08] MEDS: AMIODARONE 200 MG TAB PO SCH (08:27)
[2022-12-08] MEDS: buPROPion SR 150 MG TABCR PO SCH (08:27)
[2022-12-08] MEDS: CLOPIDOGREL BISULFATE 75 MG TAB PO SCH (08:27)
[2022-12-08] MEDS: PRAVASTATIN SOD 40 MG TAB PO SCH (08:28)
[2022-12-08] MEDS: VENLAFAXINE HCL XR 37.5 MG CAPXR PO SCH (08:28)
[2022-12-08] MEDS: POTASSIUM CHLORIDE CRTAB 20 MEQ TABCR PO SCH (08:28)
[2022-12-08] MEDS: LOSARTAN POTASSIUM 25 MG TAB PO SCH (08:28)
[2022-12-08] MEDS: FERROUS SULFATE 325 MG TAB PO SCH (08:28)
[2022-12-08] MEDS: MONTELUKAST SODIUM 10 MG TABLET PO SCH (08:28)
[2022-12-08] MEDS: CHOLECALCIFEROL 1,000 UNITS 25 MCG TAB PO SCH (08:29)
[2022-12-08] MEDS: BUMETANIDE 1 MG TAB PO SCH (08:29)
[2022-12-08] MEDS: FLUTICASONE/VILANTEROL 100/25MCG 14 PUFFS/INHALER INH SCH (08:30)
[2022-12-08] MEDS: METOPROLOL SUCC 25MG EXT REL TAB PO SCH (08:30)
[2022-12-08] MEDS: PANTOprazole 40 MG TAB PO SCH (08:31)
[2022-12-08] MEDS: MELATONIN 3 MG TAB PO SCH (20:07)
[2022-12-08] MEDS: traZODone HCL 50 MG TAB PO SCH (20:08)
--- NOTE | 2022-12-08 22:23 | Hospitalist Progress Note ---
Date of Service December 08, 2022 Assessment & Plan (1) Fall: Plan: Patient presents from [facility] following a mechanical fall States she was not on the floor for a long time Imaging studies did not show any evidence of dislocation or fractures Only reports some pain in the hip. Pain control while in the hospital Physical therapy recommends rehab Hopefully return to [facility] for rehab, She is medically stable for rehab. Patient will need to be here for 3 midnights under full admission before discharge. Anticpate discharge on 12/09 (2) HFrEF (heart failure with reduced ejection fraction): Plan: Patient follows up with the heart failure clinic Currently appears compensated We will resume her home medications Monitor input and output, daily weight (3) Atrial fibrillation: Plan: Currently rate controlled Resume her home medications I do not see any anticoagulants in her home meds, probably due to previous bleed (4) CKD (chronic kidney disease) stage 3, GFR 30-59 ml/min: Plan: Kidneys are currently stable now Monitor Avoid nephrotoxic's (5) Dementia: Plan Hopefully return to [facility] with rehab. She is medically stable for rehab Full code DVT prophylaxis SCDs Admission and Anticipated Discharge Date Admission Date: December 06, 2022 Subjective Patient reports no new symptoms. Review of Systems Review of Systems: All systems reviewed & are unremarkable except as noted in HPI & below Physical Exam Physical Exam: The patient is awake, alert and oriented 3, well developed and well nourished, normocephalic and atraumatic, lying in bed and in no acute distress. HEENT--PERRL, EOMI, mucous membranes and oropharynx mildly dry Neck--supple. No JVD. No bruits. Thyroid normal, trachea midline, no adenopathy. Heart--normal S1 and S2. No murmurs, rubs or gallops. Lungs--clear bilaterally, no respiratory distress, no accessory muscle use. Abdomen--normal bowel sounds and soft. Extremities--no cyanosis or clubbing. No edema. Dermatologic--normal skin turgor, normal color, no abnormal lymph nodes, no rash. Neurologic--cranial nerves II through XII grossly intact. Rheumatologic--normal range of motion. Psychiatric--normal affect. Results & Data Results & Data Vital Signs (Past 12 Hours) Vital Signs Temp Pulse Pulse Resp BP BP Pulse Ox 12/08/22 22:03 12/08/22 19:21 36.8 C 67 18 125/75 91 12/08/22 16:08 61 12/08/22 15:40 36.5 C 65 18 127/76 95 12/08/22 11:04 36.6 C 64 18 106/69 93 O2 Del Method 12/08/22 22:03 Room Air 12/08/22 19:21 Room Air 12/08/22 16:08 12/08/22 15:40 Room Air 12/08/22 11:04 Room Air PG Care Time/CCT Total # of Minutes Spent Total Time Spent with Patient: Total time spent is greater than 50% in coordination of care (as documented) at patient's floor/unit and/or counseling patient: Coding Level of Care Code 76451 SUB INP/OBS CARE 03/30MIN Diagnoses Fall W19.XXXA HFrEF (heart failure with reduced ejection fraction) I50.20 Atrial fibrillation I48.91 CKD (chronic kidney disease) stage 3, GFR 30-59 ml/min N18.30 Dementia F03.90
[2022-12-09] MEDS: guaiFENesin 600 MG TABCR PO SCH ×2 (00:46→07:51)
[2022-12-09] MEDS: PANTOprazole 40 MG TAB PO SCH (07:52)
[2022-12-09] MEDS: GABAPENTIN 100 MG CAP PO SCH (07:52)
[2022-12-09] MEDS: CLOPIDOGREL BISULFATE 75 MG TAB PO SCH (07:52)
[2022-12-09] MEDS: MONTELUKAST SODIUM 10 MG TABLET PO SCH (07:53)
[2022-12-09] MEDS: LOSARTAN POTASSIUM 25 MG TAB PO SCH (07:53)
[2022-12-09] MEDS: BUMETANIDE 1 MG TAB PO SCH (07:53)
[2022-12-09] MEDS: AMIODARONE 200 MG TAB PO SCH (07:53)
[2022-12-09] MEDS: FERROUS SULFATE 325 MG TAB PO SCH (07:53)
[2022-12-09] MEDS: CHOLECALCIFEROL 1,000 UNITS 25 MCG TAB PO SCH (07:54)
[2022-12-09] MEDS: VENLAFAXINE HCL XR 37.5 MG CAPXR PO SCH (07:54)
[2022-12-09] MEDS: buPROPion SR 150 MG TABCR PO SCH (07:54)
[2022-12-09] MEDS: PRAVASTATIN SOD 40 MG TAB PO SCH (07:54)
[2022-12-09] MEDS: FLUTICASONE/VILANTEROL 100/25MCG 14 PUFFS/INHALER INH SCH (07:54)
[2022-12-09] MEDS: POTASSIUM CHLORIDE CRTAB 20 MEQ TABCR PO SCH (07:54)
[2022-12-09] MEDS: METOPROLOL SUCC 25MG EXT REL TAB PO SCH (07:54)
--- NOTE | 2022-12-14 23:48 | Discharge Summary ---
Date of Service December 09, 2022 Admission HPI Per Admitting Provider This is an 87-year-old female resident of [facility] with a history of congestive heart failure, atrial fibrillation, CKD stage III who presents following a mechanical fall. According to the patient she was in the hallway today when she fell. She denied losing muscle tone or sleeping but she shared that she just fell. This is the second time of that time she has been following in the past few months. She states was not on the floor for a long time before somebody came to help her. Upon arrival to the emergency department imaging studies were done CT scan of the head cervical lumbar, there was no acute fracture or dislocation. Basic labs CBC BMP were within normal limits. Patient will be admitted to the hospital physical therapy will be consulted. Principal Diagnosis fall Discharge Exam The patient is awake, alert and oriented 3, well developed and well nourished, normocephalic and atraumatic, lying in bed and in no acute distress. HEENT--PERRL, EOMI, mucous membranes and oropharynx mildly dry Neck--supple. No JVD. No bruits. Thyroid normal, trachea midline, no adenopathy. Heart--normal S1 and S2. No murmurs, rubs or gallops. Lungs--clear bilaterally, no respiratory distress, no accessory muscle use. Abdomen--normal bowel sounds and soft. Extremities--no cyanosis or clubbing. No edema. Dermatologic--normal skin turgor, normal color, no abnormal lymph nodes, no rash. Neurologic--cranial nerves II through XII grossly intact. Rheumatologic--normal range of motion. Psychiatric--normal affect. Discharge Data Allergies Allergy/AdvReac Type Severity Reaction Status Date / Time alendronate sodium Allergy Unknown unknown Verified 12/04/22 07:59 aspirin Allergy Unknown Unknown Verified 12/04/22 07:59 metformin Allergy Unknown Unknown Verified 12/04/22 07:59 mirtazapine Allergy Unknown Unknown Verified 12/04/22 07:59 sertraline [From Zoloft] Allergy Unknown Unknown Verified 12/04/22 07:59 Consultations 12/04/22 06:41 ED Decision to Admit Stat Ordered Studies 12/04/22 02:27 CT Brain [CT head/brain wo con] Stat CT cervical spine wo con Stat CT pelvis wo con Stat Hospital Course (1) Fall: Patient presents from [facility] following a mechanical fall States she was not on the floor for a long time Imaging studies did not show any evidence of dislocation or fractures Only reports some pain in the hip. Pain control while in the hospital Physical therapy recommends rehab Hopefully return to [facility] for rehab, She is medically stable for rehab. Patient needed to be here for 3 midnights under full admission before discharge. Discharged on 12/09 (2) HFrEF (heart failure with reduced ejection fraction): Patient follows up with the heart failure clinic Currently appears compensated We will resume her home medications (3) Atrial fibrillation: Currently rate controlled Resume her home medications I do not see any anticoagulants in her home meds, probably due to previous bleed (4) CKD (chronic kidney disease) stage 3, GFR 30-59 ml/min: Kidneys are currently stable now Monitor Avoid nephrotoxic's (5) Dementia: Total Time Total Time Spent Total Time Spent (In Minutes): 32 Discharge Plan Discharge Items Patient Disposition: Transfer Long-Term Fac Reason For Visit: FALL Discharge Diagnosis: Rehab Activity: Resume your previous activity Non-emergency contact: Primary Care Provider Call non-emergency contact if: you have any medication questions Follow-up/Referrals: Ced Mayen [Primary Care Provider] - Diet: Regular Addtl Attending Provider Instructions: Recommend followup with PCP in 2 weeks. Pending Studies at Discharge: No Stand-Alone Forms: My [facility] Skilled Items Patient informed of condition?: Yes DNR: Yes Discharge Level of Care: Acute rehab Communicable Disease: No Discharge Prognosis: Stable Lines: None Urinary Catheter: No Medications and DC Order Prescriptions: New calcium carbonate [Tums] 200 mg calcium (500 mg) Tablet,Chewable 500 mg PO QID PRNQty: 0 0RF losartan 25 mg Tablet 25 mg PO DAILY Qty: 30 0RF bumetanide 1 mg Tablet 0.5 mg PO DAILY Qty: 0 0RF potassium chloride 20 mEq Tablet,Er Particles/Crystals 20 meq PO DAILY Qty: 0 0RF Continued melatonin 5 mg tablet 5 mg PO HS sennosides [Senokot] 8.6 mg tablet 8.6 mg PO BID Hold Instructions: Resume on 10/27/22. having loose stools on antibiotics venlafaxine [Effexor XR] 37.5 mg capsule,extended release 24hr 37.5 mg PO QAM gabapentin 100 mg capsule 100 mg PO TID trazodone 50 mg tablet 25 mg PO HS bupropion HCl [Wellbutrin SR] 150 mg Tablet Sustained-Release 12 Hr 150 mg PO QAM clopidogrel [Plavix] 75 mg Tablet 75 mg PO DAILY pantoprazole [Protonix] 40 mg Tablet,Delayed Release (Dr/Ec) 40 mg PO QAM montelukast [Singulair] 10 mg Tablet 10 mg PO QAM cholecalciferol (vitamin D3) 2,000 unit Capsule 2,000 unit PO DAILY acetaminophen [Tylenol] 325 mg Tablet 650 mg PO Q4H MDD 3000 MG/24H PRN (Reason: Pain) pravastatin 40 mg Tablet 40 mg PO QPM bisacodyl [Dulcolax (bisacodyl)] 10 mg Suppository 10 mg IL Q72H PRN (Reason: Constipation) coQ10 (ubiquinol) 200 mg Capsule 200 mg PO . Q AFTERNOON fluticasone furoate-vilanterol [Breo Ellipta] 100-25 mcg/dose Blister With Device 1 inh INHALATION QAM albuterol sulfate 90 mcg/actuation Aerosol Powdr Breath Activated 2 puff INHALATION Q6H PRN (Reason: COUGH/WHEEZE) cyanocobalamin (vitamin B-12) 1,000 mcg Tablet 1,000 mcg PO DAILY ferrous sulfate 325 mg (65 mg iron) Tablet 325 mg PO DAILY Rx Instructions: Could administer with orange juice for better absorption amiodarone 200 mg Tablet 200 mg PO QAM Qty: 30 0RF Rx Instructions: HOLD FOR APICAL HR <50 metoprolol succinate 25 mg Tablet Extended Release 24 Hr 25 mg PO DAILY Qty: 30 0RF Rx Instructions: HOLD FOR SBP <90 OR HR <50 magnesium hydroxide [Milk of Magnesia] 400 mg/5 mL Suspension 30 ml PO . Q48H PRN (Reason: Constipation) Rx Instructions: IF NO BM IN 2 DAYS nitroglycerin 0.4 mg tablet, sublingual 0.4 mg sublingual . @5MIN MDD MAX 3 DOSES PRN (Reason: Chest Pain) polyethylene glycol 3350 [Miralax] 17 gram/dose Powder 17 g PO . QAM, MWFRI Rx Instructions: HOLD FOR LOOSE STOOLS Jardiance 10 mg tablet 10 mg PO DAILY Discontinued acetaminophen 325 mg Tablet 650 mg PO Q4H MDD MAX 3000MG/24H PRN (Reason: Fever) Entresto 24-26 mg tablet 1 tab PO BID Rx Instructions: HOLD IF SBP <90 Discharge Orders: Discharge Order (Routine); Ordered 12/09/22 Ordered By: Grzegorz Akins Admission Data Admit Date/Time: 12/06/22 09:03 Attending Provider: Grzegorz Akins Admit Provider: Roxana Han Primary Care Provider: Ced Mayen Other Providers: Roxana Han Other Interventions: Discharge Summary Assessment (RN) Last Done: 12/09/22 12:29 Coding Level of Care Code 35119 INP/OBS DISCH >30 MIN Diagnoses Fall W19.XXXA HFrEF (heart failure with reduced ejection fraction) I50.20 Atrial fibrillation I48.91 CKD (chronic kidney disease) stage 3, GFR 30-59 ml/min N18.30 Dementia F03.90
== END 2022-12-09 13:05 | DRG 556 ==
LOC: ED 02:11 → 2N 02:11 → SUATTDRO 12-06 09:03